=== PATIENT | female | born 1975 | race Caucasian/White ===

== ENCOUNTER 2016-12-22 16:25 | Emergency (ER) | payer BC, OTHER ==
[~2016-12-22] VITALS: Ht 160 cm; Wt 52.2 kg
[~2016-12-22 16:25] MED LIST: ALBU1AER9 INH; ERGO1CAP35 PO; GABA600T PO; IBUP1CAP9 PO; INSDGIPEN SC; NRN400 PO; NVLGI SC; PROM12.57 PO; TRAM-10 PO; ZOLP5TAB PO
[2016-12-22 16:26] VITALS: TEMP 36.9; Ht 160 cm; Wt 52.2 kg
[2016-12-22] MEDS ORDERED: ONDANSETRON INJ 2 MG/ML 2 ML VIAL IV STA (17:48)
[2016-12-22] MEDS ORDERED: HYDROmorphone INJ 1 MG/ML SYR IV STA (17:48)
--- NOTE | 2016-12-22 17:55 | DIAGNOSTIC IMAGING REPORT ---
CHEST ONE VIEW PORTABLE CLINICAL HISTORY: Atypical chest pain COMPARISON STUDY: 02/05/2016 FINDINGS: The cardiac and mediastinal contours are normal. There is no evidence of focal pulmonary consolidation. There is no evidence of failure. No pleural effusions are visualized.[ IMPRESSION: No active disease in the chest. Electronically signed by: Donis Ulloa M.D. 12/22/2016 5:53 PM Dictated Date/Time: 12/22/2016 5:53 PM
[2016-12-22 18:13] LABS: BASO % 0.4 %; BASO ABS # 0.03 K/uL (0-0.2); COMPLETE YES; EOS % 4.6 %; HEMATOCRIT 42.5 % (37-47); IG% 0.1 %; LYMPH % 44.4 %; MEAN CELL VOLUME 95.7 fL (80-100); MEAN CORPUSCULAR HEMOGLOBIN 33.3 pg (25-34); MEAN CORPUSCULAR HGB CONC 34.8 g/dl (32-36); MEAN PLATELET VOLUME 11.2 fL (7.4-10.4); MONO % 6.1 %; NEUT % 44.4 %; PLATELET COUNT 239 K/uL (130-400); RED BLOOD COUNT 4.44 M/uL (4.2-5.4); WHITE BLOOD COUNT 7.88 K/uL (4.8-10.8)
[2016-12-22] MEDS ORDERED: CYM/30 PO (18:16)
[2016-12-22] MEDS ORDERED: LINA1CAP PO (18:16)
[2016-12-22] MEDS ORDERED: TRAM-10 PO (18:16)
[2016-12-22] MEDS ORDERED: CLON0.5T3 PO (18:16)
[2016-12-22] MEDS ORDERED: DIVA500T3 PO (18:16)
[2016-12-22] MEDS ORDERED: TRAZ50TA35 PO (18:17)
[2016-12-22 18:32] LABS: INR 1.1 (0.9-1.1); PARTIAL THROMBOPLASTIN RATIO 1.1; PROTHROMBIN TIME (PATIENT) 11.4 SECONDS (9.0-12.0)
[2016-12-22 18:35] LABS: MANUAL MICROSCOPIC REQUIRED? NO; REVIEW REQ? NO; URINE APPEARANCE CLEAR (CLEAR); URINE BILIRUBIN NEG (NEG); URINE COLOR YELLOW; URINE NITRITE NEG (NEG); URINE PH 7.5 (4.5-7.5); URINE SPECIFIC GRAVITY 1.039 (1.000-1.030); UROBILINOGEN NEG (NEG); ZZUR CULT IF INDIC CLEAN CATCH NO
[2016-12-22 18:38] LABS: ALT/SGPT 20 U/L (12-78); AMYLASE 27 U/L (25-115); BLOOD UREA NITROGEN 9 mg/dl (7-18); BUN/CREATININE RATIO 13.1 (10-20); CALCIUM 8.3 mg/dl (8.5-10.1); CARBON DIOXIDE 27 mmol/L (21-32); CHLORIDE 108 mmol/L (98-107); CREATININE 0.68 mg/dl (0.60-1.20); GLUCOSE 186 mg/dl (70-99); POTASSIUM 4.4 mmol/L (3.5-5.1); SODIUM 143 mmol/L (136-145)
[2016-12-22 18:43] LABS: ALB/GLOB RATIO 1.1 (0.9-2); ALKALINE PHOSPHATASE 53 U/L (45-117); AST/SGOT 14 U/L (15-37)
--- NOTE | 2016-12-22 19:08 | EMERGENCY ROOM VISIT NOTE ---
History First contact with patient: 17:12 Chief Complaint: CHEST PAIN Stated Complaint: SEVERE CHEST PAIN Nursing Triage Summary: L sided chest pain, on going for a week, today it became much worse, LUQ pain radiating to chest and L shoulder blade, c/o nausea History of Present Illness The patient is a 41 year old female who presents to the Emergency Room with complaints of left-sided chest pain on and off for the past one month which has worsened over the past 2 days. The patient reports that she has had pain intermittently for the past one month. It has become more constant and severe over the past 2 days. The patient reports that the pain radiates from her epigastric region and left upper abdomen into her chest and back. She states that today, the pain is worse with deep breath. She has had a decreased appetite and mild nausea at times, but no vomiting. The patient has seen her primary care provider previously for this pain and at that time thought it was due to her breast. She saw a breast surgeon, who diagnosed her with neuropathy. She has a history of type 1 diabetes. She denies any history of hypertension or heart disease. She has no family history of heart disease. She denies any history or family history of blood clots. She is a smoker but does not take control pills. She denies any recent long car rides. The patient denies any fevers, urinary symptoms, changes in bowel movements. Review of Systems A complete 10-point Review of Systems was discussed with the patient, with pertinent positives and negatives listed in the History of Present Illness. All remaining Review of Systems questions can be considered negative unless otherwise specified. Past Medical/Surgical History Medical Problems: (1) Abdominal pain (2) Abdominal pain (3) Acute pancreatitis (4) ASTHMA, UNSPECIFIED (5) DIAB PHOEBE WO COMPL, TYPE II OR UNSPEC TYPE, NOT UNCNTRLD (6) Diabetic neuropathy (7) DKA (diabetic ketoacidoses) (8) DKA (diabetic ketoacidosis) (9) Gastroparesis (10) Hyperglycemia (11) Hyperglycemia (12) Nausea and vomiting (13) Ovarian cyst (14) Pancreatic insufficiency (15) Pancreatitis (16) Severe dehydration (17) Vomiting Surgical Problems: (1) History of hysterectomy Family History Cancer Diabetes mellitus Social History Smoking Status: Current Every Day Smoker Alcohol Use: none Drug Use: none Marital Status: Housing Status: lives with family Occupation Status: unemployed Current/Historical Medications Scheduled Clonazepam (Klonopin), 0.5 MG PO HS Divalproex Sodium (Depakote Er), 500 MG PO HS Duloxetine HCl (Cymbalta), 30 MG PO DAILY Ergocalciferol (Vitamin D Cap), 50,000 INTER.UNIT PO WK Gabapentin (Neurontin), 600 MG PO TID Ibuprofen (Ibuprofen), 600 MG PO DAILY Insulin Aspart (Novolog), UNITS SC Q2H Insulin Glargine (Lantus Solostar), 20 UNITS SC HS Trazodone Hcl (Trazodone), 50 MG PO HS Scheduled PRN Albuterol Sulfate (Proair Hfa), 1-2 PUFF INH 4-6 HRS PRN for SOB/Wheezing Linaclotide (Linzess), 145 MCG PO DAILY PRN for Constipation Promethazine (Phenergan ), 12.5 MG PO Q4H PRN for Nausea Tramadol (Ultram), 1 TAB PO BID PRN for Pain Allergies Coded Allergies: AZO Dyes (Verified Allergy, Intermediate, HIVES, 12/22/16) Naproxen (Verified Allergy, Intermediate, HIVES, 12/22/16) Phenazopyridine (Verified Allergy, Intermediate, HIVES, 12/22/16) Varenicline (Verified Adverse Reaction, Intermediate, SEVERE DEPRESSION, ) Uncoded Allergies: NICOTINE PATCH (Adverse Reaction, Intermediate, SKIN IRRIATION/ITCHINESS- LOCALIZED DERMATITIS, 07/16/15) Physical Exam Vital Signs Date Time Temp Pulse Resp B/P Pulse Ox O2 Delivery O2 Flow Rate FiO2 12/22/16 19:22 80 18 107/72 94 12/22/16 18:34 85 18 95/64 98 Room Air 12/22/16 17:41 80 14 125/74 94 Room Air 12/22/16 17:37 83 12/22/16 16:26 36.9 95 18 125/80 98 Room Air Physical Exam VITALS: Vitals are noted on the nurse's note and reviewed by myself. Vital signs stable. GENERAL: This is a 41-year-old female, in no acute distress, nondiaphoretic, well-developed well-nourished. SKIN: Capillary reflex less than 2 seconds. HEENT: Normocephalic. PERRLA. EOMI. Nares patent. Mucous membranes moist. Neck is supple without nuchal rigidity. HEART: Regular rate and rhythm without murmurs gallops or rubs. LUNGS: Clear to auscultation bilaterally without wheezes, rales or rhonchi. ABDOMEN: Positive bowel sounds x 4. Soft, with mild tenderness over the epigastrium and left upper quadrant. Fleming sign negative. No guarding or rebound tenderness. MUSCULOSKELETAL: Full range of motion of bilateral upper extremities, strength 5 /5. NEURO: Patient was alert and oriented to person place and time. Medical Decision & Procedures ER Provider Diagnostic Interpretation: CHEST ONE VIEW PORTABLE CLINICAL HISTORY: Atypical chest pain FINDINGS: The cardiac and mediastinal contours are normal. There is no evidence of focal pulmonary consolidation. There is no evidence of failure. No pleural effusions are visualized. IMPRESSION: No active disease in the chest. Laboratory Results 12/22/16 18:00 Red Blood Count 4.44, Mean Corpuscular Volume 95.7, Mean Corpuscular Hemoglobin 33.3, Mean Corpuscular Hemoglobin Concent 34.8, Mean Platelet Volume 11.2, Neutrophils (%) (Auto) 44.4, Lymphocytes (%) (Auto) 44.4, Monocytes (%) (Auto) 6.1, Eosinophils (%) (Auto) 4.6, Basophils (%) (Auto) 0.4, Neutrophils # (Auto) 3.50, Lymphocytes # (Auto) 3.50, Monocytes # (Auto) 0.48, Eosinophils # (Auto) 0.36, Basophils # (Auto) 0.03 12/22/16 18:00 Test 12/22/16 16:40 12/22/16 18:00 Urine Color YELLOW Urine Appearance CLEAR (CLEAR) Urine pH 7.5 (4.5-7.5) Urine Specific [place] 1.039 (1.000-1.030) Urine Protein NEG (NEG) Urine Glucose (UA) 3+ (NEG) Urine Ketones TRACE (NEG) Urine Occult Blood NEG (NEG) Urine Nitrite NEG (NEG) Urine Bilirubin NEG (NEG) Urine Urobilinogen NEG (NEG) Urine Leukocyte Esterase NEG (NEG) White Blood Count 7.88 K/uL (4.8-10.8) Red Blood Count 4.44 M/uL (4.2-5.4) Hemoglobin 14.8 g/dL (12.0-16.0) Hematocrit 42.5 % (37-47) Mean Corpuscular Volume 95.7 fL (80-100) Mean Corpuscular Hemoglobin 33.3 pg (25-34) Mean Corpuscular Hemoglobin Concent 34.8 g/dl (32-36) Platelet Count 239 K/uL (130-400) Mean Platelet Volume 11.2 fL (7.4-10.4) Neutrophils (%) (Auto) 44.4 % Lymphocytes (%) (Auto) 44.4 % Monocytes (%) (Auto) 6.1 % Eosinophils (%) (Auto) 4.6 % Basophils (%) (Auto) 0.4 % Neutrophils # (Auto) 3.50 K/uL (1.4-6.5) Lymphocytes # (Auto) 3.50 K/uL (1.2-3.4) Monocytes # (Auto) 0.48 K/uL (0.11-0.59) Eosinophils # (Auto) 0.36 K/uL (0-0.5) Basophils # (Auto) 0.03 K/uL (0-0.2) RDW Standard Deviation 44.2 fL (36.4-46.3) RDW Coefficient of Variation 12.6 % (11.5-14.5) Immature Granulocyte % (Auto) 0.1 % Immature Granulocyte # (Auto) 0.01 K/uL (0.00-0.02) Prothrombin Time 11.4 SECONDS (9.0-12.0) Prothromb Time International Ratio 1.1 (0.9-1.1) Activated Partial Thromboplast Time 28.4 SECONDS (21.0-31.0) Partial Thromboplastin Ratio 1.1 D-Dimer < 190 ug/L FEU (0-500) Anion Gap 8.0 mmol/L (3-11) Est Creatinine Clear Calc Drug Dose 89.7 ml/min Estimated GFR () 125.9 Estimated GFR (Non- 108.6 BUN/Creatinine Ratio 13.1 (10-20) Calcium Level 8.3 mg/dl (8.5-10.1) Total Bilirubin 0.3 mg/dl (0.2-1) Aspartate Amino Transf (AST/SGOT) 14 U/L (15-37) Alanine Aminotransferase (ALT/SGPT) 20 U/L (12-78) Alkaline Phosphatase 53 U/L (45-117) Total Creatine Kinase 33 U/L (26-192) Creatine Kinase MB < 0.5 ng/ml (0.5-3.6) Creatine Kinase MB Ratio (0-3.0) Troponin I < 0.015 ng/ml (0-0.045) Total Protein 6.3 gm/dl (6.4-8.2) Albumin 3.3 gm/dl (3.4-5.0) Globulin 3.0 gm/dl (2.5-4.0) Albumin/Globulin Ratio 1.1 (0.9-2) Amylase Level 27 U/L (25-115) Lipase 79 U/L (73-393) Medications Administered Medications (Trade) Dose Ordered Sig/Laury Route Start Time Stop Time Status Last Admin Dose Admin Hydromorphone HCl (Dilaudid Inj) 1 mg NOW STAT IV 12/22/16 17:48 12/22/16 17:49 DC 12/22/16 18:06 1 MG Ondansetron HCl (Zofran Inj) 4 mg NOW STAT IV 12/22/16 17:48 12/22/16 17:49 DC 12/22/16 18:05 4 MG ECG Indication: abdominal pain, chest pain Rate (beats per minute): 83 Rhythm: normal sinus Findings: no acute ischemic change, no ectopy Change: no significant change Medical Decision Differential diagnosis includes pancreatitis, peptic ulcer disease, gastritis, cholecystitis, acute coronary syndrome, pulmonary embolism, musculoskeletal pain , among others. The patient was evaluated as above. Labs were drawn and IV access was obtained. Imaging studies were performed and read by radiology as above. The patient was medicated with 1 mg Dilaudid IV and 4 mg Zofran IV. The patient was reassessed multiple times during their stay in the emergency department and remained in stable condition. The patient is a 41-year-old female who presents today complaining of epigastric abdominal pain and left-sided chest pain. Labs revealed no leukocytosis, anemia or concerning electrolyte abnormalities. Lipase was not elevated. Urinalysis was cardiac enzymes were not elevated. D-dimer was not elevated. Not suggestive of infection. EKG was interpreted by myself and showed a normal sinus rhythm. Chest x-ray was unremarkable. The patient did feel much better after IV pain medication and antiemetics. I feel that her symptoms are most likely secondary to gastritis or peptic ulcer disease. She has seen GI in the past and I recommended that she take Prilosec. She will follow-up with gastroenterology and with her primary care provider. Based on the patient's presentation, lab results, and imaging studies, I feel the patient is stable for outpatient treatment. The patient's case was reviewed with Dr. Lewis, ED attending physician, who agreed with my assessment and treatment plan. Discharge instructions were reviewed with the patient. The patient verbalized understanding of my assessment and treatment plan and was discharged home in good condition. Impression Primary Impression: Epigastric abdominal pain Additional Impression: Non-cardiac chest pain Departure Information Dispostion Home / Self-Care Condition GOOD Referrals RV. Horner MD (PCP) Patient Instructions [facility] Additional Instructions You have been treated in the Emergency Department for your Chest Pain. Laboratory results and Imaging Studies have ruled out any cardiac or pulmonary cause of your chest pain. You should start taking Prilosec daily at home. For pain control, you can use the following [id number] medicines (if >12 yo): - Regular strength (325mg/tab) Tylenol (acetaminophen) 2 tabs every 4-6 hours as needed. Do not exceed 12 tablets in a 24 hour period. Avoid taking more than 4 grams (4000 mg) of Tylenol per day. This includes any other sources of acetaminophen you may take on a regular basis. - Regular strength (200 mg/tab) Advil (ibuprofen) 1-2 tabs every 4-6 hours as needed. Do not exceed a dose of 3200 mg per day. Call your primary care provider tomorrow to schedule follow-up. You may need further cardiac testing as an outpatient. Call your gas or water meter installer tomorrow to schedule follow-up appointment this week. Return to the emergency department with worsening chest pain, shortness of breath, vomiting, pain radiating into the jaw or arm, or any other new/ concerning symptoms. Problem Qualifiers
[2016-12-22 19:22] VITALS: BP 107/72; PULSE 80; O2SAT 94
== END 2016-12-22 19:22 | disposition home or self-care (01) ==
LOC: C.EDB 16:26 → C.EDC 19:22
DX: R10.13 Epigastric pain (principal); R07.89 Other chest pain; E10.40 Type 1 diabetes mellitus with diabetic neuropathy, unspecified; J45.909 Unspecified asthma, uncomplicated; Z83.3 Family history of diabetes mellitus; F17.200 Nicotine dependence, unspecified, uncomplicated

== ENCOUNTER → 2017-04-23 | Outpatient (CLI) | payer OTHER ==
[~2017-04-23] MED LIST changes: +CLON0.5T3 PO; +CYM/30 PO; +DIVA500T3 PO; +GADAVIST IV PRN; +LINA1CAP PO; -NRN400 PO; +TRAZ50TA35 PO; -ZOLP5TAB PO
--- NOTE | 2017-04-23 10:22 | DIAGNOSTIC IMAGING REPORT ---
MRI OF THE BRAIN COMBO CLINICAL HISTORY: Headache. COMPARISON STUDY: MRI of the brain dated 06/29/2016. TECHNIQUE: MRI of the brain was performed utilizing various T1 and T2-weighted sequences in the axial, sagittal, and coronal planes. Contrast-enhanced sequences were acquired following the administration of 5 cc of Gadavist. FINDINGS: Brain parenchyma: The brain parenchyma is normal in appearance. There is no hemorrhage or mass effect. There is no restricted diffusion to suggest acute ischemia. No enhancing mass lesion is identified on the postcontrast images. Dickerson-white matter differentiation is preserved. No extra-axial fluid collection is seen. The cerebellar tonsils are normal in configuration. Ventricles, sulci, and cisterns: Normal in configuration. Pituitary and sella: Unremarkable. Intracranial vasculature: Normal flow voids are maintained at the skull base. Orbits: The bony orbits are grossly intact. Orbital contents are normal in appearance. Sinuses and mastoids: There is subtotal opacification of the sphenoid sinuses. Mucosal thickening is also present within the maxillary and ethmoid sinuses. The mastoid air cells are clear. Calvarium: Unremarkable. Cervical cord: Partially visualized cervical spinal cord is normal in morphology and signal intensity. IMPRESSION: 1. No acute intracranial abnormality. 2. Paranasal sinus disease as above. Electronically signed by: Jared Jane M.D. 04/23/2017 10:21 AM Dictated Date/Time: 04/23/2017 10:16 AM
== END | disposition home or self-care (01) ==
LOC: C.MRI 08:36
PROVIDERS: ATTEND Physician Assistant
DX: R51 Headache (principal); J32.9 Chronic sinusitis, unspecified

== ENCOUNTER → 2017-07-20 | Outpatient (CLI) | payer OTHER ==
[~2017-07-20] MED LIST changes: -GADAVIST IV PRN
--- NOTE | 2017-07-20 11:29 | DIAGNOSTIC IMAGING REPORT ---
ABDOMEN 2VIEW W/PA CHEST RTN CLINICAL HISTORY: 41 years-old Female presenting with K59.03 Therapeutic opioid-induced constipation. TECHNIQUE: PA view of the chest and supine and upright views of the abdomen were obtained. COMPARISON: 12/22/2016. FINDINGS: Cardiomediastinal silhouette normal. Lungs and pleural spaces clear. Moderate stool burden. No evidence of bowel obstruction.. No evidence of free intraperitoneal gas, pneumatosis, or portal venous gas. Osseous structures normal. IMPRESSION: 1. Findings consistent with constipation. 2. No acute cardiopulmonary disease. Electronically signed by: Isauro Reed M.D. 07/20/2017 11:28 AM Dictated Date/Time: 07/20/2017 11:27 AM
== END | disposition home or self-care (01) ==
LOC: C.RAD1850 11:07
PROVIDERS: ATTEND Physician Assistant
DX: K59.03 Drug induced constipation (principal)

== ENCOUNTER → 2017-07-31 | Outpatient (CLI) | payer OTHER ==
--- NOTE | 2017-07-31 12:35 | MAMMOGRAPHY REPORT ---
BILATERAL DIGITAL DIAGNOSTIC MAMMOGRAM TOMOSYNTHESIS WITH CAD AND TARGETED LEFT ULTRASOUND: 07/31/2017 CLINICAL HISTORY: The patient reports worsening left breast pain for approximately 2 years, which is predominately burning and intermittent. She reports persistent nonbloody greenish yellow left nipple discharge for years. She denies any new palpable lumps. History of benign left breast biopsy. TECHNIQUE: Breast tomosynthesis in addition to standard 2D mammography was performed. Current study was also evaluated with a Computer Aided Detection (CAD) system. Bilateral CC and MLO 2-D and tomosy nthesis images were obtained. COMPARISON: Comparison is made to exams dated: 08/04/2016 ultrasound, 08/04/2016 mammogram, 01/28/2016 u ltrasound, 01/28/2016 mammogram, 07/27/2015 mammogram, and 07/27/2015 ultrasound biopsy - [facility]. BREAST COMPOSITION: The tissue of both breasts is heterogeneously dense, which may obscure small mas ses. FINDINGS: A scar marker rodriguez the site of pain in the left upper outer quadrant. There is no suspic ious masses, calcifications, or areas of architectural distortion noted mammographically. There has been no significant interval change compared to prior exams. A biopsy marker clip is again noted wit hin the left upper outer quadrant. An oval circumscribed 11 mm mass in the left upper outer quadrant is stable compared to prior exams. Targeted ultrasound was performed of the area of pain pointed out by the patient, involving the left 2:00 breast, centered around 6-8 centimeters from the nipple. No suspicious abnormalities are seen i n this region. In the left breast at 2:00, 3 cm from the nipple, again noted is an oval circumscribe d hypoechoic 12 x 5 x 8 mm mass, with a biopsy marker clip seen within it. This corresponds to the p reviously biopsied benign fibroadenoma and is stable dating back to the 2014 exam. The patient noted some pain when scanning over this region. In the left breast at 2:00, 2 cm from the nipple, again n oted is an oval circumscribed hypoechoic mass which measures 10 x 4 x 7 mm. This is also stable dati ng back to the June 2015 exam and is considered benign given long-term stability and likely also re presents a fibroadenoma. In the left breast at 2:30, 3 cm from the nipple, there is an oval hypoecho ic 4 x 5 x 3 mm mass. The margins are not completely circumscribed and this was not clearly evident on prior exams. While this may also represent a fibroadenoma, it is indeterminate and ultrasound-caryn ded core needle biopsy is recommended for further evaluation. Ultrasound was also performed in the l eft axillary region at the site of radiating pain, which shows morphologically normal left axillary l ymph nodes without evidence of adenopathy. IMPRESSION: ACR BI-RADS CATEGORY 4: SUSPICIOUS, TARGETED ULTRASOUND ACR BI-RADS CATEGORY 4: SUSPICIO US 1. Stable 12 mm mass in the left 2:00 breast, 3 cm from the nipple, consistent with previously biops ied benign fibroadenoma. Stable 10 mm mass in left breast at 2:00, 2 cm from the nipple, which is co nsidered benign given long-term stability and likely represents a fibroadenoma. 2. Newly visualized hypoechoic 5 mm mass in the left breast at 2:30. While this may also represent a fibroadenoma, given that it is newly visualized it is indeterminate and ultrasound-guided core need le biopsy is recommended for further evaluation. 3. The remainder of both breasts demonstrate no mammographic evidence of malignancy. 4. Recommend continued clinical follow-up for left breast pain and nipple discharge. A phone call was made to the physician's office to confirm faxed results were received. The patient has been verbally notified of the results. She tentatively scheduled the biopsy before leaving the [facility]. Approximately 10% of breast cancers are not detected with mammography. A negative mammographic report should not delay biopsy if a clinically suggestive mass is present. Maylin Montelongo M.D. /:07/31/2017 12:06:43 [employer]: Génesis Jose, [facility] letter sent: Abnormal 4/5 BI-RADS Code: ACR BI-RADS Category 4: Suspicious Ultrasound BI-RADS: ACR BI-RADS Category 4: Suspici ous
== END | disposition home or self-care (01) ==
LOC: C.MAMM 09:47
PROVIDERS: ATTEND Internal Medicine
DX: N64.4 Mastodynia (principal); N63 Unspecified lump in breast

== ENCOUNTER → 2017-08-07 | Outpatient (CLI) | payer OTHER ==
--- NOTE | 2017-08-07 11:31 | Discharge Instructions ---
Discharge Instructions Procedure Procedure Date: Aug 07, 2017. Reason for visit: Left Mass. Discharge Discharge Date: Aug 07, 2017. Discharge Diagnosis: status post breast biopsy Instructions Activity Recommendations: Additional Limitations (see below) Return to School/Work: no limitations Recommended Home Diet: No Limitations Provider Instructions: ACTIVITY RECOMMENDATIONS: * No lifting, pushing, pulling or exercising the affected side for three days. RETURN TO SCHOOL/WORK: * You may return to work/school after the procedure, but do not perform any strenuous activities for 24 to 48 hours. MEDICATIONS: * Tylenol (two 325 mg) every four to six hours if needed for mild pain (if not allergic to Tylenol). DIET: * Resume previous diet. SPECIAL CARE INSTRUCTIONS: * Keep biopsy site dry for 24 hours. May shower after 24 hours, but do not soak (bathe) incision. * May remove Tegaderm (plastic patch) tomorrow AFTER showering. * Leave the steri-strips on for one week. Allow the steri-strips to fall off by themselves. If not off after one week, you may remove them. You may place a Bandaid crosswise over the strips, if desired. * Apply ice 10 minutes on and 10 minutes off as needed. * Wear a bra at bedtime to sleep more comfortably for 2-3 days. * Your referring physician should have the results after approximately 5 to 7 business days. * Call for unusual bleeding, fever, drainage, etc or if you have any questions call during normal business hours or after hours call Dr Montelongo, [phone]. FOLLOW UP VISIT: Follow-up with Referring Physician as scheduled. Allergies Coded Allergies: AZO Dyes (Verified Allergy, Intermediate, HIVES, 12/22/16) Naproxen (Verified Allergy, Intermediate, HIVES, 12/22/16) Phenazopyridine (Verified Allergy, Intermediate, HIVES, 12/22/16) Nicotine (Verified Adverse Reaction, Intermediate, PATCH = SKIN IRRIATION/ ITCHINESS-LOCALIZED DERMATITIS, 04/23/17) Varenicline (Verified Adverse Reaction, Intermediate, SEVERE DEPRESSION, ) Elle Christian Recommendations: Call your doctor if: * Temperature above 101 degrees * Pain not relieved by pain medicine ordered * There is increased drainage or redness from any incision * You have any unanswered questions or concerns. Your Doctors Instructions noted above were prepared by provider Maylin Montelongo. Patient Signature Section: Patient Instructions Signature Page Lacey Sandoval Patient (or Guardian) Signature/Date: I have read and understand the instructions given to me by my caregivers. Caregiver/RN/Doctor Signature/Date: The above-named patient and/or guardian has received patient instructions on this date. + Original Patient Signature Page (only) stays with chart. Please make copy for patient.
--- NOTE | 2017-08-07 13:41 | MAMMOGRAPHY REPORT ---
UNILATERAL LEFT DIGITAL DIAGNOSTIC MAMMOGRAM TOMOSYNTHESIS: 08/07/2017 CLINICAL HISTORY: Status post ultrasound-guided left breast biopsy. TECHNIQUE: Breast tomosynthesis in addition to standard 2D mammography was performed. Postprocedura l left CC and ML tomosynthesis images including C views were obtained. COMPARISON: Comparison is made to exams dated: 07/31/2017 ultrasound, 07/31/2017 mammogram, 08/04/2016 ul trasound, 08/04/2016 mammogram, 01/28/2016 mammogram, and 07/27/2015 mammogram - [facility]. BREAST COMPOSITION: The tissue of the left breast is heterogeneously dense, which may obscure small masses. FINDINGS: A new wing-shaped biopsy marker clip is seen in the left upper outer quadrant at the site of the biopsied left 2:30 breast mass. No significant postbiopsy hematoma is seen. A ribbon-shaped biopsy marker clip denotes the area of prior benign biopsy. IMPRESSION: POST PROCEDURE IMAGING FOR MARKER PLACEMENT New biopsy marker clip status post left breast ultrasound-guided biopsy. Pathology results are pendi ng. Approximately 10% of breast cancers are not detected with mammography. A negative mammographic report should not delay biopsy if a clinically suggestive mass is present. Maylin Montelongo M.D. /:08/07/2017 11:37:38 Dining Room Coordinator: Chanda ANGUIANO)(Nicanor), [facility] BI-RADS Code: Post Procedure Imaging For Marker Placement
--- NOTE | 2017-08-07 13:41 | MAMMOGRAPHY REPORT ---
THIS REPORT HAS BEEN AMENDED. ULTRASOUND GUIDED BIOPSY LEFT BREAST: 08/07/2017 CLINICAL HISTORY: Left 2:30 breast mass. PATIENT CONSENT: The procedure, risks and benefits were discussed with the patient and informed writt en consent was obtained. A timeout was performed immediately prior to the procedure. PROCEDURE DESCRIPTION: With ultrasound guidance, aseptic technique, and lidocaine as the local anesth etic (1% lidocaine to anesthetize the skin and 1% lidocaine with epinephrine to anesthetize the deepe r tissues), the mass of concern in the left 2:30 breast was sampled 3 times with a 14-gauge Achieve b iopsy needle. Immediately thereafter, with ultrasound guidance, aseptic technique, and lidocaine as t he local anesthetic, a metallic localizer clip was placed at the biopsy site. Direct pressure was ap plied to the site immediately post procedure and hemostasis was achieved. Postprocedure unilateral m ammograms were performed to confirm clip placement. The patient tolerated the procedure without comp lication. She was given wound care instructions. The specimens were sent to pathology for analysis. COMPARISON: Comparison is made to exams dated: 07/31/2017 ultrasound, 07/31/2017 mammogram, 08/04/2016 ul trasound, 08/04/2016 mammogram, 01/28/2016 ultrasound, and 01/28/2016 mammogram - [facility] nter. IMPRESSION: ULTRASOUND GUIDED BIOPSY Ultrasound guided core needle biopsy of the left 2:30 breast mass, with clip placement. The patient will receive pathology results from her referring provider. Maylin Montelongo M.D. ah/:08/07/2017 11:32:22 Gis Application Developer: Chanda BROWN(Mikki)(Nicanor), [facility] AMENDMENT: 08/12/2017 Maylin Montelongo M.D. Pathology from ultrasound guided biopsy of a left 2:30 breast mass was reviewed on 08/12/2017. 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 The differential provided by the pathol ogist included a cellular fibroadenoma and a low-grade benign Phyllodes tumor, with a hypercellular f ibroadenoma favored. Given the presence of another biopsy-proven fibroadenoma in the left breast and given the small size and nonpalpable nature of the mass and given that a fibroadenoma is favored by the pathologist, it seems reasonable to follow the mass with repeat ultrasound in 6 months to confirm stability. Alternatively, surgical consultation could be considered.
== END | disposition home or self-care (01) ==
LOC: C.MAMM 10:53
PROVIDERS: ATTEND Internal Medicine
DX: N63 Unspecified lump in breast (principal); D24.2 Benign neoplasm of left breast

== ENCOUNTER → 2017-11-11 | Day surgery (SDC) | payer OTHER ==
[2017-11-06 08:17] VITALS: BMI 18.0
[~2017-11-11] VITALS: Ht 162.6 cm; Wt 48.6 kg
[~2017-11-11] MED LIST changes: +ALBU18002 INH; -ALBU1AER9 INH; -CLON0.5T3 PO; -CYM/30 PO; +DIPH25CA5 PO; -DIVA500T3 PO; -ERGO1CAP35 PO; +HYDR-3126 PO; +HYDR8TAB29 PO; -IBUP1CAP9 PO; +LIDOCAINE HCL 2% 2 ML VIAL (20MG/ML) ONE; -LINA1CAP PO; +MIDAZOLAM HCL 1 MG/ML 2ML VIAL ONE; -NVLGI SC; +NVLGIPEN SC; +ONDA4TAB46 PO; +ONDANSETRON INJ 2 MG/ML 2 ML VIAL ONE; +PANT40TA PO; +PLEC3TAB PO; +PROPOFOL IV EMULSION 10 MG/ML 20 ML VIAL IV ONE; +RIZA10TA18 PO; +SODIUM CHLORIDE 0.9% 500ML 500 ML IV ONE; +TOPI25TA99 PO; -TRAM-10 PO; +ZNF/4 PO
[2017-11-11 13:07] VITALS: Ht 162.6 cm; Wt 48.6 kg
[2017-11-11 13:14] VITALS: TEMP 36.5
--- NOTE | 2017-11-11 13:32 | Endo History and Physical ---
History & Physical Date of Service: Nov 11, 2017. Chief Complaint: COFFEE GROUND EMESIS Referring Physician: DR TERRY History of Present Illness 41 yo CF who presents for EGD secondary to coffee ground emesis. Past Medical History Diabetes, Asthma, Anxiety, Cancer, High Cholesterol, Depression Past Surgical History Hx Cardiac Surgery: No Hx Internal Defibrillator: No Hx Pacemaker: No Hx Abdominal Surgery: Yes (PARTIAL HYSTER, REANASTAMOSIS) Hx of Implantable Prosthesis: No Hx Post-Op Nausea and Vomiting: No Hx Cancer Surgery: No Hx Thoracic Surgery: No Hx Orthopedic: No Hx Urinary Tract Surgery: No Family History None Social History Smoking Status: Current Every Day Smoker Hx Substance Use: No Hx Alcohol Use: Yes (QUIT +3 YEARS) Allergies Coded Allergies: AZO Dyes (Verified Allergy, Intermediate, HIVES, 11/06/17) Naproxen (Verified Allergy, Intermediate, HIVES, 11/06/17) Phenazopyridine (Verified Allergy, Intermediate, HIVES, 11/06/17) Nicotine (Verified Adverse Reaction, Intermediate, PATCH = SKIN IRRIATION/ ITCHINESS-LOCALIZED DERMATITIS, 11/06/17) Varenicline (Verified Adverse Reaction, Intermediate, SEVERE DEPRESSION, 11/06/17) Current Medications Reported Home Medications Medications Dose Route/Sig Max Daily Dose Days Date Category Dose Instructions Protonix (Pantoprazole Sodium) 40 Mg Tab 40 Mg PO QAM 11/06/17 Reported Lantus Solostar (Insulin Glargine) 100 Unit/Ml Inj 20-40 Units SC QPM 11/06/17 Reported Novolog Flexpen (Insulin Aspart) 100 Units/Ml Inj 1 Dose SC UD 11/06/17 Reported PER SLIDING SCALE Trulance (Plecanatide) 3 Mg Tab 1 Tab PO DAILY PRN 11/06/17 Reported Benadryl (Diphenhydramine Hcl) 25 Mg Cap 50 Mg PO HS PRN 11/06/17 Reported Maxalt (Rizatriptan Benzoate) 10 Mg Tab 10 Mg PO UD PRN 11/06/17 Reported Zofran (Ondansetron HCl) 4 Mg Tab 4 Mg PO Q6H PRN 11/06/17 Reported Dilaudid (Hydromorphone Hcl) 8 Mg Tab 1 Tab PO TID 11/06/17 Reported Topamax (Topiramate) 25 Mg Tab 25 Mg PO BID 11/06/17 Reported Atarax (Hydroxyzine Hcl) 50 Mg Tab 50 Mg PO TID PRN 11/06/17 Reported Tizanidine HCl (Tizanidine) 4 Mg Tab 1 Tab PO TID 11/06/17 Reported Proair Respiclick (Albuterol Sulfate) 108 Mcg/Act Aer 2 Puffs INH Q4H PRN 11/06/17 Reported Trazodone (Trazodone HCl) 50 Mg Tab 50 Mg PO HS PRN 12/22/16 Reported Phenergan (Promethazine HCl) 12.5 Mg Tab 12.5 Mg PO Q4-6H PRN 12/07/15 Reported Neurontin (Gabapentin) 600 Mg Tab 600 Mg PO TID 07/16/15 Reported Vital Signs Weight (Kilograms): 48.64 Height (Feet): 5 Height (Inches): 4 Date Time Temp Pulse Resp B/P (MAP) Pulse Ox O2 Delivery O2 Flow Rate FiO2 11/11/17 13:14 36.5 86 18 127/84 (98) 95 Room Air Physical Exam General Appearance: WD/WN, no apparent distress Respiratory/Chest: Auscultation: breath sounds normal Cardiovascular: Heart Auscultation: RRR Abdomen: Bowel Sounds: normal Inspection & Palpation: soft, non-distended, no tenderness, guarding & rebound Assessment and Plan Assessment: 41 yo CF who presents for EGD secondary to coffee ground emesis. Plan: Proceed with EGD.
--- NOTE | 2017-11-11 14:06 | Discharge Instructions ---
Endoscopy Patient Instructions Date / Procedure(s) Performed Nov 11, 2017. EGD Allergy Information Coded Allergies: AZO Dyes (Verified Allergy, Intermediate, HIVES, 11/11/17) Naproxen (Verified Allergy, Intermediate, HIVES, 11/11/17) Phenazopyridine (Verified Allergy, Intermediate, HIVES, 11/11/17) Nicotine (Verified Adverse Reaction, Intermediate, PATCH = SKIN IRRIATION/ ITCHINESS-LOCALIZED DERMATITIS, 11/11/17) Varenicline (Verified Adverse Reaction, Intermediate, SEVERE DEPRESSION, 11/11/17) Discharge Date / Findings Nov 11, 2017. Gastritis s/p biopsies Esophageal brushings Medication Instructions OK to resume all medications today as prescribed Reported Home Medications Medications Dose Route/Sig Max Daily Dose Days Date Category Dose Instructions Protonix (Pantoprazole Sodium) 40 Mg Tab 40 Mg PO QAM 11/06/17 Reported Lantus Solostar (Insulin Glargine) 100 Unit/Ml Inj 20-40 Units SC QPM 11/06/17 Reported Novolog Flexpen (Insulin Aspart) 100 Units/Ml Inj 1 Dose SC UD 11/06/17 Reported PER SLIDING SCALE Trulance (Plecanatide) 3 Mg Tab 1 Tab PO DAILY PRN 11/06/17 Reported Benadryl (Diphenhydramine Hcl) 25 Mg Cap 50 Mg PO HS PRN 11/06/17 Reported Maxalt (Rizatriptan Benzoate) 10 Mg Tab 10 Mg PO UD PRN 11/06/17 Reported Zofran (Ondansetron HCl) 4 Mg Tab 4 Mg PO Q6H PRN 11/06/17 Reported Dilaudid (Hydromorphone Hcl) 8 Mg Tab 1 Tab PO TID 11/06/17 Reported Topamax (Topiramate) 25 Mg Tab 25 Mg PO BID 11/06/17 Reported Atarax (Hydroxyzine Hcl) 50 Mg Tab 50 Mg PO TID PRN 11/06/17 Reported Tizanidine HCl (Tizanidine) 4 Mg Tab 1 Tab PO TID 11/06/17 Reported Proair Respiclick (Albuterol Sulfate) 108 Mcg/Act Aer 2 Puffs INH Q4H PRN 11/06/17 Reported Trazodone (Trazodone HCl) 50 Mg Tab 50 Mg PO HS PRN 1/30/17 Reported Phenergan (Promethazine HCl) 12.5 Mg Tab 12.5 Mg PO Q4-6H PRN 12/07/15 Reported Neurontin (Gabapentin) 600 Mg Tab 600 Mg PO TID 07/16/15 Reported Provider Instructions Activity Restrictions - No exercising or heavy lifting for 24 hours. - Do not drink alcohol the day of the procedure. - Do not drive a car or operate machinery until the day after the procedure. - Do not make any important decisions or sign important papers in 24 hours after the procedure. Following Day: - Return to full activity which may include returning to work/school. Diet Start your diet with liquids and light foods (jello, soup, juice, toast). Then eat your usual diet if not nauseated. Treatment For Common After Affects For mild abdominal pain, bloating, or excessive gas: - Rest - Eat lightly - Lie on right side Follow-Up Information Follow-up with DR TERRY as scheduled Anesthesia Information What You Should Know You have had a procedure that required some medicine to reduce anxiety and discomfort. This treatment is called moderate sedation. After receiving the treatment, you may be sleepy, but you will be able to breathe on your own. The effects of the treatment may last for several hours. Follow these instructions along with Activity/Diet recommendations noted above: * Do NOT do anything where dizziness or clumsiness would be dangerous. * Rest quietly at home today, then you can be up and about tomorrow. * Have a responsible person stay with you the rest of today. * You may have had an I.V. today. If so, you may take the dressing off later today. Recommendations Call your doctor if: * Trouble breathing * Continuous vomiting for more than 24 hours * Temperature above 101 degrees * Severe abdominal pain or bloating * Pain not relieved by pain medicine ordered * There is increased drainage or redness from any incision * A large amount of rectal bleeding greater than 2-3 tablespoons. (If you had a polyp/s removed or have hemorrhoids, a small amount of blood - from the rectum is to be expected.) * You have any unanswered questions or concerns. IN THE EVENT OF A SERIOUS EMERGENCY, GO TO THE NEAREST EMERGENCY ROOM Your discharge instructions were prepared by provider Hi Meredith. Patient Instructions Signature Page Lacey Sandoval Patient (or Guardian) Signature/Date: I have read and understand the instructions given to me by my caregivers. Caregiver/RN/Doctor Signature/Date: The above-named patient and/or guardian has received patient instructions on this date. + Original Patient Signature Page (only) stays with chart. Please make copy for patient.
--- NOTE | 2017-11-11 14:10 | GI REPORT ---
Procedure Date: 11/11/2017 1:42 PM Procedure: Upper GI endoscopy Indications: Coffee-ground emesis Medicines: Monitored Anesthesia Care Complications: No immediate complications. Estimated Blood Loss: Estimated blood loss: none. Procedure: Pre-Anesthesia Assessment: - Prior to the procedure, a History and Physical was performed, and patient medications and allergies were reviewed. The patient's tolerance of previous anesthesia was also reviewed. The risks and benefits of the procedure and the sedation options and risks were discussed with the patient. All questions were answered, and informed consent was obtained. Prior Anticoagulants: The patient has taken no previous anticoagulant or antiplatelet agents. ASA Grade Assessment: III - A patient with severe systemic disease. After reviewing the risks and benefits, the patient was deemed in satisfactory condition to undergo the procedure. After obtaining informed consent, the endoscope was passed under direct vision. Throughout the procedure, the patient's blood pressure, pulse, and oxygen saturations were monitored continuously. The scope was introduced through the mouth, and advanced to the second part of duodenum. The upper GI endoscopy was accomplished without difficulty. The patient tolerated the procedure well. Findings: Probable candidiasis was found in the entire esophagus in patches. Cells for cytology were obtained by brushing. Localized moderate inflammation characterized by erosions and erythema was found in the gastric antrum. Biopsies were taken with a cold forceps for histology. The examined duodenum was normal. Impression: - Monilial esophagitis. Cells for cytology obtained. - Gastritis. Biopsied. - Normal examined duodenum. Recommendation: - Resume previous diet. - Continue present medications. - Await pathology results. - Return to primary care physician as previously scheduled. Hi Meredith, DO 11/11/2017 2:09:39 PM This report has been signed electronically. Note Initiated On: 11/11/2017 1:42 PM I attest to the content of the Intraoperative Record and orders documented therein, exceptions below
[2017-11-11 14:34] VITALS: BP 112/74; PULSE 86; O2SAT 96
--- NOTE | 2017-11-11 14:51 | Anesthesiology Progress Note ---
Anesthesia Post Op Note Date & Time Nov 11, 2017 at 14:51 Vital Signs Pain Intensity: 0 Vital Signs Past 12 Hours Date Time Temp Pulse Resp B/P (MAP) Pulse Ox O2 Delivery O2 Flow Rate FiO2 11/11/17 14:34 86 18 112/74 (87) 96 Room Air 11/11/17 14:17 75 18 103/69 (80) 94 Room Air 11/11/17 14:04 87 16 111/76 (88) 97 Room Air 11/11/17 13:14 36.5 86 18 127/84 (98) 95 Room Air Notes Mental Status: alert / awake / arousable, participated in evaluation Pt Amnestic to Procedure: Yes Nausea / Vomiting: adequately controlled Pain: adequately controlled Airway Patency, RR, SpO2: stable & adequate BP & HR: stable & adequate Hydration State: stable & adequate Anesthetic Complications: no major complications apparent
== END | disposition home or self-care (01) ==
LOC: C.GI 12:52
PROVIDERS: ATTEND Internal Medicine
DX: K92.0 Hematemesis (principal); K20.9 Esophagitis, unspecified; K29.70 Gastritis, unspecified, without bleeding; E78.00 Pure hypercholesterolemia, unspecified; E10.9 Type 1 diabetes mellitus without complications; J45.909 Unspecified asthma, uncomplicated; F41.9 Anxiety disorder, unspecified; F32.9 Major depressive disorder, single episode, unspecified; F17.210 Nicotine dependence, cigarettes, uncomplicated; Z79.4 Long term (current) use of insulin; Z79.899 Other long term (current) drug therapy; K21.9 Gastro-esophageal reflux disease without esophagitis; G62.9 Polyneuropathy, unspecified

== ENCOUNTER → 2017-12-11 | Outpatient (CLI) | payer OTHER ==
[~2017-12-11] MED LIST changes: -LIDOCAINE HCL 2% 2 ML VIAL (20MG/ML) ONE; -MIDAZOLAM HCL 1 MG/ML 2ML VIAL ONE; -ONDANSETRON INJ 2 MG/ML 2 ML VIAL ONE; +OPTIRAY 320 IV PRN; -PROPOFOL IV EMULSION 10 MG/ML 20 ML VIAL IV ONE; -SODIUM CHLORIDE 0.9% 500ML 500 ML IV ONE
--- NOTE | 2017-12-11 10:52 | DIAGNOSTIC IMAGING REPORT ---
CT ABD/PELVIS IV AND ORAL CONT CLINICAL HISTORY: R10.9 Abdominal pain of multiple [id number] COMPARISON STUDY: 07/27/2015 TECHNIQUE: Following the IV administration of 93 mL of Optiray-320, CT scan of the abdomen and pelvis was performed from the lung bases to the proximal femurs. Images are reviewed in the axial, sagittal, and coronal planes. IV contrast was administered without complication. A dose lowering technique was utilized adhering to the principles of ALARA. CT DOSE: 266.26 mGy.cm FINDINGS: Lower chest: The heart is normal in size and configuration, without pericardial effusion. The lung bases and pleural spaces are clear. Liver: There is a stable 7 mm hypodensity within the medial segment left hepatic lobe adjacent the falciform ligament. This is not felt to be acute clinical significance. Gallbladder: Unremarkable. Spleen: Normal in size and attenuation. Pancreas: Unremarkable. Adrenal glands: Unremarkable. Kidneys: There are 2 tiny right renal cysts. No solid renal masses are visualized. There is no hydronephrosis. Bowel: There are no transition zones indicate bowel obstruction. The appendix appears normal. There is no acute diverticulitis. There is mild to moderate fecal retention. Clinical correlation with regards to constipation symptoms is recommended. Peritoneum: There is no intraperitoneal free air or abdominal ascites. Vasculature: The abdominal aorta is normal in course and caliber. Adenopathy: None. Pelvic viscera: The uterus appears surgically absent. Skeletal structures: No destructive osseous lesions are seen. IMPRESSION: 1. No evidence of bowel obstruction. No evidence of free air 2. Normal appendix. No acute inflammatory findings. 3. Moderate fecal retention. Electronically signed by: Donis Ulloa M.D. 12/11/2017 10:50 AM Dictated Date/Time: 12/11/2017 10:43 AM
== END | disposition home or self-care (01) ==
LOC: C.CTS 10:10
PROVIDERS: ATTEND Physician Assistant
DX: R10.9 Unspecified abdominal pain (principal); K59.00 Constipation, unspecified

== ENCOUNTER → 2018-02-18 | Outpatient (CLI) | payer OTHER ==
[~2018-02-18] MED LIST changes: -OPTIRAY 320 IV PRN
--- NOTE | 2018-02-19 07:22 | MAMMOGRAPHY REPORT ---
UNILATERAL LEFT DIGITAL DIAGNOSTIC MAMMOGRAM TOMOSYNTHESIS WITH CAD AND TARGETED LEFT ULTRASOUND: 01/22 CLINICAL HISTORY: The patient is here for short interval follow-up of a left 2:30 breast mass which w as previously biopsied July 2017. The pathology showed a fibroepithelial lesion, with different ial including a cellular fibroadenoma or low-grade benign Phyllodes tumor (a hypercellular fibroadeno ma was favored). The patient reports itching and burning of her left nipple for approximately 2 alexa hs. She denies any skin changes of the nipple or bloody nipple discharge. She reports persistent le ft breast pain which she has had for at least 2 years. She also reports persistent nonbloody greenis h yellow left nipple discharge for years. TECHNIQUE: Breast tomosynthesis in addition to standard 2D mammography was performed. Current study was also evaluated with a Computer Aided Detection (CAD) system. Left CC and MLO 2D and tomosynthesi s images were obtained. COMPARISON: Comparison is made to exams dated: 02/18/2018 ultrasound, 08/07/2017 mammogram, 08/07/2017 ultrasound biopsy, 07/31/2017 ultrasound, 07/31/2017 mammogram, and 08/04/2016 ultrasound - [facility]. BREAST COMPOSITION: The tissue of the left breast is heterogeneously dense, which may obscure small masses. FINDINGS: There are no suspicious masses, calcifications, or areas of architectural distortion noted within the left breast mammographically. There has been no significant interval change compared to p rior exams. 2 biopsy marker clips are again noted within the left upper outer quadrant. A partially circumscribed and partially obscured 10 mm mass in the left upper outer quadrant, best seen on the C C tomosynthesis images, is unchanged. Targeted ultrasound was performed of the previously seen left breast masses. In the left breast at 2 :00, 2 cm from the nipple, again noted is a lobulated hypoechoic 11 x 5 x 10 mm mass with an internal echogenic biopsy marker clip. The mass is not significantly changed and was previously biopsied and yielded a benign fibroadenoma. In the left 230 breast, 3 cm from the nipple, again noted is a small hypoechoic mass which measures 4 x 6 x 2 mm, also not significantly changed when accounting for diff erences in measurement technique; an echogenic biopsy marker clip is seen immediately adjacent to thi s mass. The mass was previously biopsied and yielded a fibroepithelial lesion, with differential inc luding a cellular fibroadenoma or low-grade benign Phyllodes tumor. Another hypoechoic solid 11 x 5 x 7 mm mass is seen within the left 1 to 2:00 periareolar breast, which is stable dating back to [place] the June 2015 exam and is considered benign and likely also represents a fibroadenoma. Ultras ound was also performed of the left subareolar breast to evaluate the nipple burning/itching. No tracey picious masses or other suspicious sonographic abnormalities are seen within the left subareolar [address]. A few small cysts were noted, including a small 3 mm cyst in the left subareolar breast. IMPRESSION: ACR-BI-RADS CATEGORY 3: PROBABLY BENIGN, TARGETED ULTRASOUND ACR-BI-RADS CATEGORY 3: PRO BABLY BENIGN 1. Hypoechoic 6 mm mass in the left 230 breast is not significantly changed compared to the 2016 exam. The mass was previously biopsied with pathology showing a fibroepithelial lesion with d ifferential including a cellular fibroadenoma or low-grade benign Phyllodes tumor. Recommend repeat targeted ultrasound of the left breast in 6 months to confirm longer stability of the left 230 breast mass. Routine bilateral mammograms can be performed at that time. 2. No suspicious or mammographic or sonographic abnormality to explain left nipple burning/itching. Recommend clinical follow-up; if symptoms are suspicious clinically then surgical consultation for p ossible biopsy could be obtained. Also recommend continued clinical follow-up for left breast pain. The patient has been verbally notified of the results. Approximately 10% of breast cancers are not detected with mammography. A negative mammographic report should not delay biopsy if a clinically suggestive mass is present. Maylin Montelongo M.D. ah/:02/18/2018 12:07:09 Hydraulic Jack Operator: Chanda ANGUIANO)(Nicanor), [facility] letter sent: Follow Up Recommended 3 BI-RADS Code: ACR-BI-RADS Category 3: Probably Benign Ultrasound BI-RADS: ACR-BI-RADS Category 3: Pr obably Benign
== END | disposition home or self-care (01) ==
LOC: C.MAMM 10:32
PROVIDERS: ATTEND Internal Medicine
DX: N63.20 Unspecified lump in the left breast, unspecified quadrant (principal); N64.4 Mastodynia; L29.8 Other pruritus

== ENCOUNTER → 2018-03-02 | Outpatient (CLI) | payer OTHER ==
--- NOTE | 2018-03-02 12:11 | DIAGNOSTIC IMAGING REPORT ---
LUMBAR SPINE W/O CONTRAST CLINICAL HISTORY: 42 years-old Female presenting with LOW BACK PAIN, severe low back pain, tailbone pain radiating to the buttocks and both feet, numbness and burning, leg weakness. TECHNIQUE: Multisequence, multiplanar MR imaging of the lumbar spine was performed without the use of intravenous contrast. IV contrast: None. COMPARISON: CT of abdomen pelvis from 12/11/2017. FINDINGS: Localizer images: Unremarkable. Straightening of normal lumbar lordosis. Vertebral bodies maintain normal height, alignment, and bone marrow signal intensity with the exception of a T1 hypointense, T2 hyperintense lesion in L1, which is nonspecific. Faint sclerosis in this region suggested on prior CT. Intravertebral discs demonstrate slight desiccation at L4-5, where there is a focal annular fissure. Minimal disc bulge at this level. This does not result in significant effacement of the thecal sac. Minimal bilateral neural foraminal narrowing at L4-5. The remaining levels are normal without evidence of spinal canal or neural foraminal narrowing. The spinal cord ends in good position at L1. Cauda equina normal in morphology. Paraspinal musculature normal. Remaining soft tissues grossly normal. IMPRESSION: 1. Mild focal degenerative change at L4-5 with an annular fissure. No significant spinal canal stenosis. Minimal bilateral neural foraminal narrowing at this level. 2. Indeterminate small lesion in L1, which may correlate with a faint focus of sclerosis on prior CT. This is of uncertain clinical significance. The report will be called/faxed according to standard departmental protocol. Electronically signed by: Isauro Reed M.D. 03/02/2018 12:10 PM Dictated Date/Time: 03/02/2018 12:05 PM
== END | disposition home or self-care (01) ==
LOC: C.MRI 10:57
PROVIDERS: ATTEND Nurse Practitioner Primary Care
DX: M47.26 Other spondylosis with radiculopathy, lumbar region (principal); M48.061 Spinal stenosis, lumbar region without neurogenic claudication; G95.9 Disease of spinal cord, unspecified; G89.4 Chronic pain syndrome; G90.50 Complex regional pain syndrome I, unspecified

== ENCOUNTER 2019-01-05 12:16 | Inpatient (IN) ==
[2019-01-05] MEDS ORDERED: ACETAMINOPHEN 325 MG TAB PO PRN (16:12)
[2019-01-05] MEDS ORDERED: ONDANSETRON INJ 2 MG/ML 2 ML VIAL IV PRN (16:12)
[2019-01-05] MEDS ORDERED: DKA GOAL RANGE 150-250 mg/dl ONE (16:12)
[2019-01-05] MEDS ORDERED: MODERATE STRESS LEVEL ONE (16:12)
[2019-01-05] MEDS ORDERED: PROMETHAZINE HCL 25 MG in SODIUM CHLORIDE 0.9% 50 ML IV PRN (16:47)
[2019-01-05] MEDS ORDERED: HYDROmorphone INJ 0.5 MG/0.5 ML SYR ONE (16:48)
--- NOTE | 2019-01-05 16:52 | History & Physical Report ---
Date of Service January 05, 2019 Assessment & Plan (1) DKA (diabetic ketoacidosis): (2) Metabolic acidosis due to diabetes mellitus: (3) Nausea and vomiting: - Admit to PCU - DKA to be treated with IV fluids determined after getting BMP results, insulin per DKA protocol. Have discussed this with pharmacy. - Obtain baseline labs now: pt refusing ABG, so will order VBG - pt was informed about serial blood draws due to insulin gtt and DKA protocol - Zofran and phenergan for nausea - Allow full liquid diet for now and advance as tolerated - WBC elevated on OSH records, WBC= 33 K, so will check repeat BCx. Original BCx from OSH drawn on 01/03 are NGTD, but will need to be followed for final results by day team - UCx with skin poli, no apparent UTI on OSH results. - Severe pain control with dilaudid 0.5 mg q2H for now, pt takes 2 mg Q6H as outpatient, with a max total of 6 mg daily as per Dr. Iglesias in most recent outpatient note. Reviewed dilaudid Rx in [place] drug portal (4) Diabetes mellitus type 1: - Glycemic pharmacy consulted to assist with DKA protocol as above (5) Gastroparesis: - Chronic, stable, follows with a specialist in [place] however has not seen provider recently. (6) Diabetic neuropathy: - Continue gabapentin 900 mg TID, dilaudid as above. Follows with pain management here. - Stable. (7) Pneumonia: - Has received ceftriaxone and azithromycin starting on 01/03. Already had doses today. Continue. - Follow CXR read, have requested upload. (8) Depression: - Continue trazodone for sleep, hydroxyzine for anxiety/sleep. - Stable, but exacerbated by hospital stay. No suicidal or homicidal ideations. - Hx of alcohol abuse and eating disorder - Tox screen on OSH records was negative. (9) DVT prophylaxis: - Lovenox subq History of Present Illness Chief Complaint: Intractable nausea and vomiting Primary Care Provider: Kai Horner MD This is a 43 yo F with PMHx of chronic pain on opiods, DM I, gastroparesis, peripheral neuropathy, chronic tobacco smoker, HLD, hx of alcohol abuse and hx of eating disorder who presents as a direct transfer from [facility]. Pt was initially admitted to OSH on 01/02/19. The patient reports that her glucose was uncontrollable there, and that she normally see's our physicians and comes to this hospital previously for similar issues so requested transfer. She reports having severe "severe pain all over her body from straining", and states that she has been dry heaving most of the day. She was able to drink juice and some broth this morning and did not vomit afterwards. She is urinating dark urine for several days. A urine culture was nonconfirmatory regarding a UTI. She also notes having a pneumonia which she has been being treated with antibiotics at OSH. Still has complaints of cough with minimal sputum production, but feels pain with coughing. She denies shortness of breath at rest or on exertion. No fever, chills or sweats. Allergies Allergy/AdvReac Type Severity Reaction Status Date / Time AZO Standard Allergy Intermediate HIVES Verified 11/11/17 13:40 naproxen Allergy Intermediate HIVES Verified 11/11/17 13:40 phenazopyridine Allergy Intermediate HIVES Verified 11/11/17 13:40 nicotine AdvReac Intermediate PATCH = Verified 11/11/17 13:40 SKIN IRRIATION/ITCHINESS-LOCALIZED DERMATITIS varenicline AdvReac Intermediate SEVERE Verified 11/11/17 13:40 DEPRESSION Home Medications Home Medications Medication Instructions Recorded Confirmed Type GABAPENTIN (NEURONTIN) 900 mg PO TID #0 07/16/15 History Promethazine (Phenergan ) 12.5 mg PO Q4-6H PRN #0 12/07/15 History Trazodone Hcl (Trazodone) 50 mg PO HS PRN #0 12/22/16 History Insulin Aspart (NOVOLOG FLEXPEN) 1 dose SC UD #0 11/06/17 History Plecanatide (Trulance) 1 tab PO DAILY PRN #0 11/06/17 History Tizanidine (Tizanidine HCl) 1 tab PO TID #0 11/06/17 History hydromorphone 2 mg PO TID PRN 01/05/19 01/05/19 History amitriptyline 50 mg PO HS 01/06/19 01/06/19 History ranitidine HCl 150 mg PO BID 01/06/19 01/06/19 History Past Med/Surg History Medical History History of hysterectomy Gastroparesis Peripheral neuropathy Diabetes mellitus type 1 Surgical History H/O: hemorrhoidectomy History of hemorrhoidectomy History of tonsillectomy and adenoidectomy Social History Current Living Situation: Spouse Feels Safe at Home: Yes Safety Concerns: Feels Safe At This Time Smoking Status: Current every day smoker Tobacco Type: cigarettes Cigarettes per Day: 20 Do You Dip or Chew Tobacco: No Smoking End Date: 01/03/2019 Second Hand Exposure: No Tobacco Cessation Education Requested by Patient: Yes Hx Alcohol Use: No Hx Substance Use: No Beliefs That Will Affect Care: None Preferred Language: Portuguese Communication Ability: Effective Customer Pricing Manager Required: Yes Review of Systems Constitutional: + body aches and + fatigue; no fever, no chills and no sweats Eyes: no diplopia and no worsening vision Ear, Nose, Mouth, Throat: no dizziness, no nasal discharge, no facial pain and no sore throat Respiratory: as per Subjective / HPI, + cough, + pain with cough and + sputum production; no dyspnea, no dyspnea on exertion, no hemoptysis and no wheezing Cardiovascular: no chest pain, no chest pain with activity, no palpitations, no lightheadedness and no syncope Gastrointestinal: + nausea and + vomiting; no constipation and no diarrhea/ loose stools no diarrhea Genitourinary (Female): + urinary frequency; no dysuria and no urinary incontinence Musculoskeletal: no back pain, no joint pain, no swelling and no muscle weakness Integumentary: no rash, no lesions and no wounds Neurologic: no gait abnormality, no falls, no numbness, no dizziness and no syncope Psychiatric: no depression and no anxiety Endocrine: no fatigue Physical Exam 2 Vital Signs (Past 24 Hours): Last Vital Signs Temp 37 C 01/05/19 16:08 Pulse 106 H 01/05/19 16:08 Resp 16 01/05/19 16:08 BP 149/89 H 01/05/19 16:08 Pulse Ox 98 01/05/19 16:08 Physical Exam: General: awake, alert, no apparent distress Head: Normocephalic, atraumatic ENT: PERRL, EOMI, no pharyngeal exudate, mucous membranes dry. Chest: Clear to auscultation, on room air, +faint crackles with deep inspiration. Cardiac: Regular rate and rhythm, no murmur, no JVD, normal peripheral pulses, good capillary refill Abdominal: NABS x 4 quadrants, soft, nondistended, +minimal tenderness to palpation, no rebound or guarding. Extremities: Normal inspection, no peripheral edema or erythema, calfs nontender to palpation Psych: Depressed mood and affect Neuro: AAO x 3, no motor deficits, speech is clear, no peripheral sensory deficits Results & Data Diagnostic Findings CXR disc sent from OSH awaiting upload to our system. Code Status & VTE Plan Code Status FULL Supervising Physician Co-Signing Physician Notes Pt seen/examined following SONIA Norman. Orders and plan of admission formulated with SONIA. 43 y/o F Hx DMI, gastroparesis, chronic pain, alcohol, tobacco and opiate abuse. Transferred from [facility] where she was being treated for DKA and PNM. She arrived without access or adequate records. She was c/o pain and requesting narcotics on arrival. She did not have additional complaints. OE AAO x 3 - no distress S1,2 R CTAB NT, ND No CCE No deficits P: Will continue with a DKA protocol - she will need a PICC AM as access has been an issue Cont Cef Zithro for PNM which is improving She does not exhibit ETOH withdrawal signs We will continue her prescribed dose of Narcotics and would avoid any increase We are pending labs for additional fluid and electrolyte management at the time of admission as she did not arrive with recents from [facility]
[2019-01-05] MEDS ORDERED: PHARMACY GLYCEMIC MGMT CONSULT PRN (17:03)
[2019-01-05] MEDS ORDERED: SODIUM CHLORIDE 0.9% 1000ML 1,000 ML IV SCH (17:15)
[2019-01-05] MEDS ORDERED: INSULIN REGULAR 250 UNITS in SODIUM CHLORIDE 0.9% 247.5 ML IV SCH (17:15)
[2019-01-05 17:20] LABS: Hematocrit (blood only) 39.8 % (37-47); Hemoglobin 13.7 g/dL (12.0-16.0); Mean Corpuscular Hgb Conc 34.4 g/dL (32-36); RDW Coefficient of Variation 14.1 % (11.5-14.5); RDW Standard Deviation 48.5 fL (36.4-46.3); Red Blood Count 4.19 M/uL (4.2-5.4); White Blood Count 14.93 K/uL (4.8-10.8)
[2019-01-05 17:35] LABS: Basophils # (auto) 0.02 K/uL (0-0.2); Basophils % (auto) 0.1 %; Echinocytes 1+; Eosinophils # (auto) 0.04 K/uL (0-0.5); Eosinophils % (auto) 0.3 %; Immature Granulocytes # (auto) 0.06 K/uL (0.00-0.02); Immature Granulocytes % (auto) 0.4 %; Lymphocytes # (auto) 2.96 K/uL (1.2-3.4); Lymphocytes % (auto) 19.8 %; Mean Platelet Volume 11.4 fL (7.4-10.4); Monocytes % (auto) 7.4 %; Neutrophils # (auto) 10.75 K/uL (1.4-6.5); Platelet Count 81 K/uL (130-400); Toxic Vacuolation 1+
[2019-01-05 17:48] LABS: Appearance Urine Clear (Clear); Bilirubin Urine Negative (Negative); Color Urine Yellow; Glucose Urine UA 3+ (Negative); Leukocyte Esterase Urine Negative (Negative); Nitrite Urine Negative (Negative); Protein Urine Negative (Negative); Specific Gravity Urine 1.021 (1.000-1.030); Urobilinogen Urine Negative (Negative)
[2019-01-05] MEDS: HYDROmorphone INJ 0.5 MG/0.5 ML SYR IV PRN ×3 (17:51→22:00)
[2019-01-05 17:58] LABS: BUN Creatinine Ratio 5.7 (10-20); Calcium 8.2 mg/dl (8.5-10.1); Creatinine Clr Calc Pharmacy 88.1 ml/min; Est GFR (African American) 124.2; Est GFR (Non-African American) 107.1; Phosphorus 1.7 mg/dl (2.5-4.9)
[2019-01-05 17:59] LABS: Ketones Urine 3+ (Negative)
[2019-01-05] MEDS ORDERED: cefTRIAXone SODIUM 1,000 MG in DEXTROSE 5% 50 ML IV SCH (18:00)
[2019-01-05] MEDS: INSULIN ASPART 100 UNITS/ML 3 ML PEN SC SCH ×2 (18:20→22:16)
[2019-01-05] MEDS ORDERED: AZITHROMYCIN 250 MG in DEXTROSE 5% 250 ML IV SCH (19:00)
[2019-01-05] MEDS ORDERED: SODIUM CHLORIDE 0.9% IV ONE (20:00)
[2019-01-05] MEDS ORDERED: SODIUM PHOSPHATE IV ONE (20:00)
[2019-01-05] MEDS: SODIUM CHLORIDE 0.45 % 1,000 ML IV SCH (20:05)
[2019-01-05 21:14] LABS: BUN Creatinine Ratio 6.1 (10-20); Calcium 7.6 mg/dl (8.5-10.1); Creatinine Clr Calc Pharmacy 68.8 ml/min; Est GFR (African American) 94.6; Est GFR (Non-African American) 81.6; Magnesium 1.6 mg/dl (1.8-2.4); Potassium 3.8 mmol/L (3.5-5.1)
[2019-01-05 21:57] LABS: Phosphorus 0.6 mg/dl (2.5-4.9)
[2019-01-05] MEDS ORDERED: POTASSIUM PHOS 3 MMOL/1 ML INFUSION IV STA (22:10)
[2019-01-05] MEDS ORDERED: POTASSIUM PHOSPHATE 30 MMOL in SODIUM CHLORIDE 0.9% 500 ML IV ONE (22:30)
[2019-01-05] MEDS ORDERED: DEXTROSE 50% 50 ML SYRINGE IV ONE ×2 (23:23→23:25)
[2019-01-05] MEDS ORDERED: INSULIN GLARGINE SOLOSTAR 100 UNITS/ML 3 ML PEN SC STA (23:35)
[2019-01-05] MEDS ORDERED: DEXTROSE 50% 50 ML SYRINGE IV PRN (23:51)
[2019-01-05] MEDS ORDERED: GLUCOSE 40% GEL 15 GM TUBE PO PRN (23:51)
[2019-01-05] MEDS ORDERED: GLUCAGON FOR INJ 1 MG VIAL IM PRN (23:51)
[2019-01-05] MEDS ORDERED: CARBOHYDRATES FOR HYPOGLYCEMIA PO PRN (23:51)
[2019-01-05] MEDS ORDERED: GLUCOSE 10 TABS/TUBE PO PRN (23:51)
[2019-01-06] MEDS: HYDROmorphone INJ 0.5 MG/0.5 ML SYR IV PRN ×2 (00:11→03:08)
[2019-01-06 00:39] LABS: BUN Creatinine Ratio 5.8 (10-20); Calcium 7.4 mg/dl (8.5-10.1); Creatinine Clr Calc Pharmacy 95.1 ml/min; Est GFR (African American) 127.3; Est GFR (Non-African American) 109.9; Magnesium 1.6 mg/dl (1.8-2.4); Potassium 3.8 mmol/L (3.5-5.1)
[2019-01-06 00:40] LABS: Phosphorus 2.6 mg/dl (2.5-4.9)
[2019-01-06] MEDS: PENDING NSS+20mEq KCL IVF SCH ×3 (00:50→03:29)
[2019-01-06] MEDS ORDERED: MAGNESIUM OXIDE 400 MG TAB PO STA (01:00)
[2019-01-06] MEDS: SODIUM CHLORIDE 0.45 % 1,000 ML IV SCH (01:05)
[2019-01-06] MEDS ORDERED: SODIUM CHLORIDE 0.45 % 1,000 ML IV SCH (02:45)
[2019-01-06] MEDS ORDERED: D5W AND 1/2NSS + 20MEQ KCL 20 MEQ/1,000 ML BAG IV SCH (03:00)
[2019-01-06 04:27] LABS: Hematocrit (blood only) 36.2 % (37-47); Hemoglobin 12.2 g/dL (12.0-16.0); Mean Corpuscular Hgb Conc 33.7 g/dL (32-36); Mean Corpuscular Volume 96.5 fL (80-100); Mean Platelet Volume 10.4 fL (7.4-10.4); Platelet Count 188 K/uL (130-400); RDW Coefficient of Variation 13.8 % (11.5-14.5); RDW Standard Deviation 48.8 fL (36.4-46.3); Red Blood Count 3.75 M/uL (4.2-5.4); White Blood Count 10.53 K/uL (4.8-10.8)
[2019-01-06 04:32] LABS: INR 1.1 (0.9-1.1); Prothrombin Time 11.3 Seconds (9.0-12.0)
[2019-01-06 04:34] LABS: Albumin Level 2.3 gm/dl (3.4-5.0); BUN Creatinine Ratio 6.7 (10-20); Calcium 7.2 mg/dl (8.5-10.1); Est GFR (African American) 129.4; Est GFR (Non-African American) 111.6; Magnesium 1.4 mg/dl (1.8-2.4); Potassium 3.8 mmol/L (3.5-5.1)
[2019-01-06 04:38] LABS: Albumin Globulin Ratio 0.8 (0.9-2); Bilirubin,Total 0.8 mg/dl (0.2-1); Globulin 2.8 gm/dl (2.5-4.0); Phosphorus 3.4 mg/dl (2.5-4.9); Total Protein 5.1 gm/dl (6.4-8.2)
[2019-01-06] MEDS: ENOXAPARIN INJ 40 MG/0.4 ML SYR SQ SCH (06:13)
[2019-01-06 06:38] LABS: Estimated Average Glucose 278 mg/dl
[2019-01-06] MEDS ORDERED: INSULIN GLARGINE SOLOSTAR 100 UNITS/ML 3 ML PEN SC ONE ×2 (08:42→21:00)
[2019-01-06] MEDS: INSULIN ASPART 100 UNITS/ML 3 ML PEN SC SCH ×4 (08:51→20:59)
[2019-01-06] MEDS ORDERED: cefTRIAXone SODIUM 1,000 MG in DEXTROSE 5% 50 ML IV SCH ×2 (09:00→12:00)
[2019-01-06] MEDS ORDERED: MAGNESIUM OXIDE 400 MG TAB PO SCH (09:00)
[2019-01-06 09:29] LABS: BUN Creatinine Ratio 7.3 (10-20); Calcium 7.5 mg/dl (8.5-10.1); Creatinine Clr Calc Pharmacy 105.3 ml/min; Est GFR (African American) 131.6; Est GFR (Non-African American) 113.5; Magnesium 1.7 mg/dl (1.8-2.4); Potassium 3.4 mmol/L (3.5-5.1)
[2019-01-06] MEDS ORDERED: AZITHROMYCIN 250 MG in DEXTROSE 5% 250 ML IV SCH ×2 (10:00→13:00)
[2019-01-06] MEDS: MAGNESIUM SULFATE / D5W 1 GM/100 ML BAG IV SCH ×2 (10:17→11:48)
[2019-01-06] MEDS: CEFDINIR 300 MG CAP PO SCH ×2 (10:46→20:56)
[2019-01-06] MEDS ORDERED: TRAZODONE HCL 100 MG TAB PO PRN (11:28)
[2019-01-06] MEDS ORDERED: PROMETHAZINE HCL 25 MG TAB PO PRN (11:28)
[2019-01-06] MEDS ORDERED: HYDROmorphone INJ 0.5 MG/0.5 ML SYR IV PRN (11:30)
--- NOTE | 2019-01-06 11:35 | Hospitalist Progress Note ---
Date of Service January 06, 2019 Assessment & Plan (1) Nausea and vomiting: This is a 43 yo F with PMHx of chronic pain on opioids, uncontrolled DM I , gastroparesis, peripheral neuropathy, chronic tobacco smoker, HLD, hx of alcohol abuse and hx of eating disorder who presents as a direct transfer from [facility] for DKA and pneumonia. She presented there with intractable nausea/ vomiting, DKA, and sepsis with RICCI and pneumonia. Transferred here as her condition did not seem to be improving Nausea and vomiting resolved now, is feeling hungry -Advance diet to ADA -Condition continue IV fluids at this time as Is closed as below - Zofran and phenergan as needed for nausea (2) DKA (diabetic ketoacidosis): VBG here with pH 7.41 now, no further acidosis, gap is closed Blood sugars are in the high 100s to low 200s -Pharmacy glycemic management consult is appreciated -Transitioning off insulin drip now and onto Lantus -Watch for allergic reaction with Lantus -Replace electrolytes as needed -On IV fluids and will now transition off as she is tolerating p.o. quite well (3) Diabetes mellitus type 1: - Glycemic pharmacy consulted to assist with DKA protocol as above -Severely uncontrolled with hemoglobin A1c of 11.3% She has been on NovoLog every 2 hours at home for many years with the exception of a few brief times where she was on either Lantus or Tarceva-both of these gave her a rash -She follows with endocrinology SONIA Addison -Appreciate diabetic nurse educator evaluation here -Patient agreeable to trying Lantus again as an outpatient (4) Gastroparesis: - Chronic, stable, follows with a specialist in [place] however has not seen provider recently. -Continue dietary plan for gastroparesis -Unsure if she has tried Reglan in the past (5) Diabetic neuropathy: Chronic and severe - Continue gabapentin 900 mg TID, amitriptyline, and will transition her back to her p.o. Dilaudid today from IV Dilaudid . Follows with pain management here. - Stable. (6) Pneumonia: CT of the abdomen pelvis at outside hospital showed groundglass opacities bibasilar possibly consistent with pneumonitis Chest x-ray personally reviewed by me and the image does not appear to have any pneumonia She previously did admit to productive cough with sputum and fevers at the outside hospital She was vomiting profusely prior to admission secondary to her DKA-could be aspiration pneumonia? - Has received ceftriaxone and azithromycin starting on 01/03 -We will continue antibiotics but switch to Omnicef and azithromycin both p.o. to complete a 7-day course Overall much improved -Blood cultures drawn at outside facility-we will follow-up on these results (7) Depression: - Continue trazodone for sleep, hydroxyzine for anxiety/sleep. - Stable, but exacerbated by hospital stay. No suicidal or homicidal ideations. - Hx of alcohol abuse and eating disorder - Tox screen on OSH records was negative. (8) Hypomagnesemia: Magnesium very low at 1.4 -Replaced with IV magnesium -DC p.o. magnesium started last night (9) Hematuria: With gross hematuria noted by patient-not witnessed by me Urinalysis here was normal initially -Repeat UA and treat as indicated for infection No evidence of kidney stone seen on outside CT scan of the abdomen pelvis, no clinical signs of kidney stone either (10) DVT prophylaxis: - Lovenox subq Disposition-remain on telemetry unit Subjective Pt feeling much better todya, no further N/V, is feeling very hungry. Has pain in ribs and neck from wretching prior to admission. No further cough but was having cough productive of brown-black sputum. No BM in 3 days. No abd pain. She does report blood in her urine today, no flank pain. Reports she had an allergic reaction with rash to Lantus when she first tried it in 2010 and hasn't been on it since then. She then broke out in a rash to Tresiba in 10/2018 and has not been on that either. She usually just uses Novolog q2hrs for years and A1C has never been below 9.6%. Discussed her care with the Pharmacist. Review of Systems All systems reviewed & are unremarkable except as noted in HPI & below Physical Exam 2 Vital Signs (Past 24 Hours): Last Vital Signs Temp 37.0 C 01/06/19 07:02 Pulse 82 01/06/19 07:02 Resp 16 01/06/19 07:02 BP 146/94 H 01/06/19 07:02 Pulse Ox 95 01/06/19 07:02 Constitutional: WD/WN, vitals as above Eyes: PERRL, conjunctivae normal, anicteric sclerae ENMT: external ear and nose normal, oropharynx normal Neck: trachea midline, no thyromegaly Respiratory: normal respiratory effort, lungs clear to auscultation Cardiovascular: RRR, no murmur, no edema Gastrointestinal (Abdomen): normal bowel sounds, soft, nontender, no hepatosplenomegaly Musculoskeletal: Extremities: extremities normal to inspection; no cyanosis and no clubbing Skin: no rashes, warm and dry Neurologic: moves all extremities and awake; no focal motor deficits Psychiatric: A+Ox3, euthymic affect Results & Data Laboratory Results 01/06/19 01/06/19 01/06/19 Range/Units 11:12 10:03 09:04 WBC (4.8-10.8) K/uL RBC (4.2-5.4) M/uL Hgb (12.0-16.0) g/dL Hct (37-47) % MCV (80-100) fL MCH (25-34) pg MCHC (32-36) g/dL RDW Std Deviation (36.4-46.3) fL RDW Coeff of Kore[place] (11.5-14.5) % Plt Count (130-400) K/uL MPV (7.4-10.4) fL Immature Gran % (Auto) % Neut % (Auto) % Lymph % (Auto) % [place] % (Auto) % Eos % (Auto) % Baso % (Auto) % Immature Gran # (Auto) (0.00-0.02) K/uL Neut # (Auto) (1.4-6.5) K/uL Lymph # (Auto) (1.2-3.4) K/uL [place] # (Auto) (0.11-0.59) K/uL Eos # (Auto) (0-0.5) K/uL Baso # (Auto) (0-0.2) K/uL Toxic Vacuolation Platelet Estimate (Normal) Echinocytes PT INR VBG pH (7.36-7.41) Sodium (136-145) mmol/L Potassium (3.5-5.1) mmol/L Chloride (98-107) mmol/L Carbon Dioxide (21-32) mmol/L Anion Gap (3-11) BUN (7-18) mg/dl Creatinine (0.6-1.2) mg/dl Est Cr Clr Drug Dosing ml/min Est GFR ( Amer) Est GFR (Non-Af Amer) BUN/Creatinine Ratio (10-20) Glucose (70-99) mg/dl POC Glucose 218 H 264 H 224 H (70-99) Estimat Average Glucose mg/dl Hemoglobin A1c (4.5-5.6) % Calcium (8.5-10.1) mg/dl Phosphorus (2.5-4.9) mg/dl Magnesium (1.8-2.4) mg/dl Total Bilirubin (0.2-1) mg/dl AST (15-37) U/L ALT (12-78) U/L Alkaline Phosphatase (45-117) U/L Total Protein (6.4-8.2) gm/dl Albumin (3.4-5.0) gm/dl Globulin (2.5-4.0) gm/dl Albumin/Globulin Ratio (0.9-2) Beta-Hydroxybutyric Acd (0.2-2.81) mg/dl Urine Color Urine Appearance (Clear) Urine pH (4.5-7.5) Ur Specific [place] (1.000-1.030) Urine Protein (Negative) Urine Glucose (UA) (Negative) Urine Ketones (Negative) Urine Blood (Negative) Urine Nitrite (Negative) Urine Bilirubin (Negative) Urine Urobilinogen (Negative) Ur Leukocyte Esterase (Negative) 01/06/19 01/06/19 01/06/19 Range/Units 08:45 08:45 08:01 WBC (4.8-10.8) K/uL RBC (4.2-5.4) M/uL Hgb (12.0-16.0) g/dL Hct (37-47) % MCV (80-100) fL MCH (25-34) pg MCHC (32-36) g/dL RDW Std Deviation (36.4-46.3) fL RDW Coeff of Korey (11.5-14.5) % Plt Count (130-400) K/uL MPV (7.4-10.4) fL Immature Gran % (Auto) % Neut % (Auto) % Lymph % (Auto) % [place] % (Auto) % Eos % (Auto) % Baso % (Auto) % Immature Gran # (Auto) (0.00-0.02) K/uL Neut # (Auto) (1.4-6.5) K/uL Lymph # (Auto) (1.2-3.4) K/uL [place] # (Auto) (0.11-0.59) K/uL Eos # (Auto) (0-0.5) K/uL Baso # (Auto) (0-0.2) K/uL Toxic Vacuolation Platelet Estimate (Normal) Echinocytes PT INR VBG pH 7.45 H (7.36-7.41) Sodium 138 (136-145) mmol/L Potassium 3.4 L (3.5-5.1) mmol/L Chloride 107 (98-107) mmol/L Carbon Dioxide 23 (21-32) mmol/L Anion Gap 8.0 (3-11) BUN 4 L (7-18) mg/dl Creatinine 0.57 L (0.6-1.2) mg/dl Est Cr Clr Drug Dosing 105.3 ml/min Est GFR ( Amer) 131.6 Est GFR (Non-Af Amer) 113.5 BUN/Creatinine Ratio 7.3 L (10-20) Glucose 245 H (70-99) mg/dl POC Glucose 224 H (70-99) Estimat Average Glucose mg/dl Hemoglobin A1c (4.5-5.6) % Calcium 7.5 L (8.5-10.1) mg/dl Phosphorus 2.0 L D (2.5-4.9) mg/dl Magnesium 1.7 L (1.8-2.4) mg/dl Total Bilirubin (0.2-1) mg/dl AST (15-37) U/L ALT (12-78) U/L Alkaline Phosphatase (45-117) U/L Total Protein (6.4-8.2) gm/dl Albumin (3.4-5.0) gm/dl Globulin (2.5-4.0) gm/dl Albumin/Globulin Ratio (0.9-2) Beta-Hydroxybutyric Acd (0.2-2.81) mg/dl Urine Color Urine Appearance (Clear) Urine pH (4.5-7.5) Ur Specific [place] (1.000-1.030) Urine Protein (Negative) Urine Glucose (UA) (Negative) Urine Ketones (Negative) Urine Blood (Negative) Urine Nitrite (Negative) Urine Bilirubin (Negative) Urine Urobilinogen (Negative) Ur Leukocyte Esterase (Negative) 01/06/19 01/06/19 01/06/19 Range/Units 07:00 06:02 04:56 WBC (4.8-10.8) K/uL RBC (4.2-5.4) M/uL Hgb (12.0-16.0) g/dL Hct (37-47) % MCV (80-100) fL MCH (25-34) pg MCHC (32-36) g/dL RDW Std Deviation (36.4-46.3) fL RDW Coeff of Korey (11.5-14.5) % Plt Count (130-400) K/uL MPV (7.4-10.4) fL Immature Gran % (Auto) % Neut % (Auto) % Lymph % (Auto) % [place] % (Auto) % Eos % (Auto) % Baso % (Auto) % Immature Gran # (Auto) (0.00-0.02) K/uL Neut # (Auto) (1.4-6.5) K/uL Lymph # (Auto) (1.2-3.4) K/uL [place] # (Auto) (0.11-0.59) K/uL Eos # (Auto) (0-0.5) K/uL Baso # (Auto) (0-0.2) K/uL Toxic Vacuolation Platelet Estimate (Normal) Echinocytes PT INR VBG pH (7.36-7.41) Sodium (136-145) mmol/L Potassium (3.5-5.1) mmol/L Chloride (98-107) mmol/L Carbon Dioxide (21-32) mmol/L Anion Gap (3-11) BUN (7-18) mg/dl Creatinine (0.6-1.2) mg/dl Est Cr Clr Drug Dosing ml/min Est GFR ( Amer) Est GFR (Non-Af Amer) BUN/Creatinine Ratio (10-20) Glucose (70-99) mg/dl POC Glucose 244 H 247 H 186 H (70-99) Estimat Average Glucose mg/dl Hemoglobin A1c (4.5-5.6) % Calcium (8.5-10.1) mg/dl Phosphorus (2.5-4.9) mg/dl Magnesium (1.8-2.4) mg/dl Total Bilirubin (0.2-1) mg/dl AST (15-37) U/L ALT (12-78) U/L Alkaline Phosphatase (45-117) U/L Total Protein (6.4-8.2) gm/dl Albumin (3.4-5.0) gm/dl Globulin (2.5-4.0) gm/dl Albumin/Globulin Ratio (0.9-2) Beta-Hydroxybutyric Acd (0.2-2.81) mg/dl Urine Color Urine Appearance (Clear) Urine pH (4.5-7.5) Ur Specific [place] (1.000-1.030) Urine Protein (Negative) Urine Glucose (UA) (Negative) Urine Ketones (Negative) Urine Blood (Negative) Urine Nitrite (Negative) Urine Bilirubin (Negative) Urine Urobilinogen (Negative) Ur Leukocyte Esterase (Negative) 01/06/19 01/06/19 01/06/19 Range/Units 04:00 03:56 03:56 WBC (4.8-10.8) K/uL RBC (4.2-5.4) M/uL Hgb (12.0-16.0) g/dL Hct (37-47) % MCV (80-100) fL MCH (25-34) pg MCHC (32-36) g/dL RDW Std Deviation (36.4-46.3) fL RDW Coeff of Korey (11.5-14.5) % Plt Count (130-400) K/uL MPV (7.4-10.4) fL Immature Gran % (Auto) % Neut % (Auto) % Lymph % (Auto) % [place] % (Auto) % Eos % (Auto) % Baso % (Auto) % Immature Gran # (Auto) (0.00-0.02) K/uL Neut # (Auto) (1.4-6.5) K/uL Lymph # (Auto) (1.2-3.4) K/uL [place] # (Auto) (0.11-0.59) K/uL Eos # (Auto) (0-0.5) K/uL Baso # (Auto) (0-0.2) K/uL Toxic Vacuolation Platelet Estimate (Normal) Echinocytes PT 11.3 INR 1.1 VBG pH (7.36-7.41) Sodium (136-145) mmol/L Potassium (3.5-5.1) mmol/L Chloride (98-107) mmol/L Carbon Dioxide (21-32) mmol/L Anion Gap (3-11) BUN (7-18) mg/dl Creatinine (0.6-1.2) mg/dl Est Cr Clr Drug Dosing ml/min Est GFR ( Amer) Est GFR (Non-Af Amer) BUN/Creatinine Ratio (10-20) Glucose (70-99) mg/dl POC Glucose 150 H (70-99) Estimat Average Glucose 278 mg/dl Hemoglobin A1c 11.3 H (4.5-5.6) % Calcium (8.5-10.1) mg/dl Phosphorus (2.5-4.9) mg/dl Magnesium (1.8-2.4) mg/dl Total Bilirubin (0.2-1) mg/dl AST (15-37) U/L ALT (12-78) U/L Alkaline Phosphatase (45-117) U/L Total Protein (6.4-8.2) gm/dl Albumin (3.4-5.0) gm/dl Globulin (2.5-4.0) gm/dl Albumin/Globulin Ratio (0.9-2) Beta-Hydroxybutyric Acd (0.2-2.81) mg/dl Urine Color Urine Appearance (Clear) Urine pH (4.5-7.5) Ur Specific [place] (1.000-1.030) Urine Protein (Negative) Urine Glucose (UA) (Negative) Urine Ketones (Negative) Urine Blood (Negative) Urine Nitrite (Negative) Urine Bilirubin (Negative) Urine Urobilinogen (Negative) Ur Leukocyte Esterase (Negative) 01/06/19 01/06/19 01/06/19 Range/Units 03:56 03:56 03:56 WBC 10.53 (4.8-10.8) K/uL RBC 3.75 L (4.2-5.4) M/uL Hgb 12.2 (12.0-16.0) g/dL Hct 36.2 L (37-47) % MCV 96.5 (80-100) fL MCH 32.5 (25-34) pg MCHC 33.7 (32-36) g/dL RDW Std Deviation 48.8 H (36.4-46.3) fL RDW Coeff of Korey 13.8 (11.5-14.5) % Plt Count 188 D (130-400) K/uL MPV 10.4 (7.4-10.4) fL Immature Gran % (Auto) % Neut % (Auto) % Lymph % (Auto) % [place] % (Auto) % Eos % (Auto) % Baso % (Auto) % Immature Gran # (Auto) (0.00-0.02) K/uL Neut # (Auto) (1.4-6.5) K/uL Lymph # (Auto) (1.2-3.4) K/uL [place] # (Auto) (0.11-0.59) K/uL Eos # (Auto) (0-0.5) K/uL Baso # (Auto) (0-0.2) K/uL Toxic Vacuolation Platelet Estimate (Normal) Echinocytes PT INR VBG pH 7.41 (7.36-7.41) Sodium 139 (136-145) mmol/L Potassium 3.8 (3.5-5.1) mmol/L Chloride 110 H (98-107) mmol/L Carbon Dioxide 25 (21-32) mmol/L Anion Gap 4.0 (3-11) BUN 4 L (7-18) mg/dl Creatinine 0.60 (0.6-1.2) mg/dl Est Cr Clr Drug Dosing 100.0 ml/min Est GFR ( Amer) 129.4 Est GFR (Non-Af Amer) 111.6 BUN/Creatinine Ratio 6.7 L (10-20) Glucose 142 H (70-99) mg/dl POC Glucose (70-99) Estimat Average Glucose mg/dl Hemoglobin A1c (4.5-5.6) % Calcium 7.2 L (8.5-10.1) mg/dl Phosphorus 3.4 (2.5-4.9) mg/dl Magnesium 1.4 L (1.8-2.4) mg/dl Total Bilirubin 0.8 (0.2-1) mg/dl AST 78 H (15-37) U/L ALT 39 (12-78) U/L Alkaline Phosphatase 101 (45-117) U/L Total Protein 5.1 L (6.4-8.2) gm/dl Albumin 2.3 L (3.4-5.0) gm/dl Globulin 2.8 (2.5-4.0) gm/dl Albumin/Globulin Ratio 0.8 L (0.9-2) Beta-Hydroxybutyric Acd (0.2-2.81) mg/dl Urine Color Urine Appearance (Clear) Urine pH (4.5-7.5) Ur Specific [place] (1.000-1.030) Urine Protein (Negative) Urine Glucose (UA) (Negative) Urine Ketones (Negative) Urine Blood (Negative) Urine Nitrite (Negative) Urine Bilirubin (Negative) Urine Urobilinogen (Negative) Ur Leukocyte Esterase (Negative) 01/06/19 01/06/19 01/06/19 Range/Units 02:58 02:38 02:19 WBC (4.8-10.8) K/uL RBC (4.2-5.4) M/uL Hgb (12.0-16.0) g/dL Hct (37-47) % MCV (80-100) fL MCH (25-34) pg MCHC (32-36) g/dL RDW Std Deviation (36.4-46.3) fL RDW Coeff of Korey (11.5-14.5) % Plt Count (130-400) K/uL MPV (7.4-10.4) fL Immature Gran % (Auto) % Neut % (Auto) % Lymph % (Auto) % [place] % (Auto) % Eos % (Auto) % Baso % (Auto) % Immature Gran # (Auto) (0.00-0.02) K/uL Neut # (Auto) (1.4-6.5) K/uL Lymph # (Auto) (1.2-3.4) K/uL [place] # (Auto) (0.11-0.59) K/uL Eos # (Auto) (0-0.5) K/uL Baso # (Auto) (0-0.2) K/uL Toxic Vacuolation Platelet Estimate (Normal) Echinocytes PT INR VBG pH (7.36-7.41) Sodium (136-145) mmol/L Potassium (3.5-5.1) mmol/L Chloride (98-107) mmol/L Carbon Dioxide (21-32) mmol/L Anion Gap (3-11) BUN (7-18) mg/dl Creatinine (0.6-1.2) mg/dl Est Cr Clr Drug Dosing ml/min Est GFR ( Amer) Est GFR (Non-Af Amer) BUN/Creatinine Ratio (10-20) Glucose (70-99) mg/dl POC Glucose 151 H 147 H 93 (70-99) Estimat Average Glucose mg/dl Hemoglobin A1c (4.5-5.6) % Calcium (8.5-10.1) mg/dl Phosphorus (2.5-4.9) mg/dl Magnesium (1.8-2.4) mg/dl Total Bilirubin (0.2-1) mg/dl AST (15-37) U/L ALT (12-78) U/L Alkaline Phosphatase (45-117) U/L Total Protein (6.4-8.2) gm/dl Albumin (3.4-5.0) gm/dl Globulin (2.5-4.0) gm/dl Albumin/Globulin Ratio (0.9-2) Beta-Hydroxybutyric Acd (0.2-2.81) mg/dl Urine Color Urine Appearance (Clear) Urine pH (4.5-7.5) Ur Specific [place] (1.000-1.030) Urine Protein (Negative) Urine Glucose (UA) (Negative) Urine Ketones (Negative) Urine Blood (Negative) Urine Nitrite (Negative) Urine Bilirubin (Negative) Urine Urobilinogen (Negative) Ur Leukocyte Esterase (Negative) 01/06/19 01/06/19 01/06/19 Range/Units 02:04 00:58 00:11 WBC (4.8-10.8) K/uL RBC (4.2-5.4) M/uL Hgb (12.0-16.0) g/dL Hct (37-47) % MCV (80-100) fL MCH (25-34) pg MCHC (32-36) g/dL RDW Std Deviation (36.4-46.3) fL RDW Coeff of Korey (11.5-14.5) % Plt Count (130-400) K/uL MPV (7.4-10.4) fL Immature Gran % (Auto) % Neut % (Auto) % Lymph % (Auto) % [place] % (Auto) % Eos % (Auto) % Baso % (Auto) % Immature Gran # (Auto) (0.00-0.02) K/uL Neut # (Auto) (1.4-6.5) K/uL Lymph # (Auto) (1.2-3.4) K/uL [place] # (Auto) (0.11-0.59) K/uL Eos # (Auto) (0-0.5) K/uL Baso # (Auto) (0-0.2) K/uL Toxic Vacuolation Platelet Estimate (Normal) Echinocytes PT INR VBG pH 7.42 H (7.36-7.41) Sodium (136-145) mmol/L Potassium (3.5-5.1) mmol/L Chloride (98-107) mmol/L Carbon Dioxide (21-32) mmol/L Anion Gap (3-11) BUN (7-18) mg/dl Creatinine (0.6-1.2) mg/dl Est Cr Clr Drug Dosing ml/min Est GFR ( Amer) Est GFR (Non-Af Amer) BUN/Creatinine Ratio (10-20) Glucose (70-99) mg/dl POC Glucose 103 H 136 H (70-99) Estimat Average Glucose mg/dl Hemoglobin A1c (4.5-5.6) % Calcium (8.5-10.1) mg/dl Phosphorus (2.5-4.9) mg/dl Magnesium (1.8-2.4) mg/dl Total Bilirubin (0.2-1) mg/dl AST (15-37) U/L ALT (12-78) U/L Alkaline Phosphatase (45-117) U/L Total Protein (6.4-8.2) gm/dl Albumin (3.4-5.0) gm/dl Globulin (2.5-4.0) gm/dl Albumin/Globulin Ratio (0.9-2) Beta-Hydroxybutyric Acd (0.2-2.81) mg/dl Urine Color Urine Appearance (Clear) Urine pH (4.5-7.5) Ur Specific [place] (1.000-1.030) Urine Protein (Negative) Urine Glucose (UA) (Negative) Urine Ketones (Negative) Urine Blood (Negative) Urine Nitrite (Negative) Urine Bilirubin (Negative) Urine Urobilinogen (Negative) Ur Leukocyte Esterase (Negative) 01/06/19 01/06/19 01/05/19 Range/Units 00:11 00:09 23:41 WBC (4.8-10.8) K/uL RBC (4.2-5.4) M/uL Hgb (12.0-16.0) g/dL Hct (37-47) % MCV (80-100) fL MCH (25-34) pg MCHC (32-36) g/dL RDW Std Deviation (36.4-46.3) fL RDW Coeff of Korey (11.5-14.5) % Plt Count (130-400) K/uL MPV (7.4-10.4) fL Immature Gran % (Auto) % Neut % (Auto) % Lymph % (Auto) % [place] % (Auto) % Eos % (Auto) % Baso % (Auto) % Immature Gran # (Auto) (0.00-0.02) K/uL Neut # (Auto) (1.4-6.5) K/uL Lymph # (Auto) (1.2-3.4) K/uL [place] # (Auto) (0.11-0.59) K/uL Eos # (Auto) (0-0.5) K/uL Baso # (Auto) (0-0.2) K/uL Toxic Vacuolation Platelet Estimate (Normal) Echinocytes PT INR VBG pH (7.36-7.41) Sodium 140 (136-145) mmol/L Potassium 3.8 (3.5-5.1) mmol/L Chloride 110 H (98-107) mmol/L Carbon Dioxide 25 (21-32) mmol/L Anion Gap 5.0 (3-11) BUN 4 L (7-18) mg/dl Creatinine 0.63 (0.6-1.2) mg/dl Est Cr Clr Drug Dosing 95.1 ml/min Est GFR ( Amer) 127.3 Est GFR (Non-Af Amer) 109.9 BUN/Creatinine Ratio 5.8 L (10-20) Glucose 151 H (70-99) mg/dl POC Glucose 153 H 158 H (70-99) Estimat Average Glucose mg/dl Hemoglobin A1c (4.5-5.6) % Calcium 7.4 L (8.5-10.1) mg/dl Phosphorus 2.6 D (2.5-4.9) mg/dl Magnesium 1.6 L (1.8-2.4) mg/dl Total Bilirubin (0.2-1) mg/dl AST (15-37) U/L ALT (12-78) U/L Alkaline Phosphatase (45-117) U/L Total Protein (6.4-8.2) gm/dl Albumin (3.4-5.0) gm/dl Globulin (2.5-4.0) gm/dl Albumin/Globulin Ratio (0.9-2) Beta-Hydroxybutyric Acd (0.2-2.81) mg/dl Urine Color Urine Appearance (Clear) Urine pH (4.5-7.5) Ur Specific [place] (1.000-1.030) Urine Protein (Negative) Urine Glucose (UA) (Negative) Urine Ketones (Negative) Urine Blood (Negative) Urine Nitrite (Negative) Urine Bilirubin (Negative) Urine Urobilinogen (Negative) Ur Leukocyte Esterase (Negative) 01/05/19 01/05/19 01/05/19 Range/Units 23:21 23:06 21:51 WBC (4.8-10.8) K/uL RBC (4.2-5.4) M/uL Hgb (12.0-16.0) g/dL Hct (37-47) % MCV (80-100) fL MCH (25-34) pg MCHC (32-36) g/dL RDW Std Deviation (36.4-46.3) fL RDW Coeff of Korey (11.5-14.5) % Plt Count (130-400) K/uL MPV (7.4-10.4) fL Immature Gran % (Auto) % Neut % (Auto) % Lymph % (Auto) % [place] % (Auto) % Eos % (Auto) % Baso % (Auto) % Immature Gran # (Auto) (0.00-0.02) K/uL Neut # (Auto) (1.4-6.5) K/uL Lymph # (Auto) (1.2-3.4) K/uL [place] # (Auto) (0.11-0.59) K/uL Eos # (Auto) (0-0.5) K/uL Baso # (Auto) (0-0.2) K/uL Toxic Vacuolation Platelet Estimate (Normal) Echinocytes PT INR VBG pH (7.36-7.41) Sodium (136-145) mmol/L Potassium (3.5-5.1) mmol/L Chloride (98-107) mmol/L Carbon Dioxide (21-32) mmol/L Anion Gap (3-11) BUN (7-18) mg/dl Creatinine (0.6-1.2) mg/dl Est Cr Clr Drug Dosing ml/min Est GFR ( Amer) Est GFR (Non-Af Amer) BUN/Creatinine Ratio (10-20) Glucose (70-99) mg/dl POC Glucose 96 102 H 151 H (70-99) Estimat Average Glucose mg/dl Hemoglobin A1c (4.5-5.6) % Calcium (8.5-10.1) mg/dl Phosphorus (2.5-4.9) mg/dl Magnesium (1.8-2.4) mg/dl Total Bilirubin (0.2-1) mg/dl AST (15-37) U/L ALT (12-78) U/L Alkaline Phosphatase (45-117) U/L Total Protein (6.4-8.2) gm/dl Albumin (3.4-5.0) gm/dl Globulin (2.5-4.0) gm/dl Albumin/Globulin Ratio (0.9-2) Beta-Hydroxybutyric Acd (0.2-2.81) mg/dl Urine Color Urine Appearance (Clear) Urine pH (4.5-7.5) Ur Specific [place] (1.000-1.030) Urine Protein (Negative) Urine Glucose (UA) (Negative) Urine Ketones (Negative) Urine Blood (Negative) Urine Nitrite (Negative) Urine Bilirubin (Negative) Urine Urobilinogen (Negative) Ur Leukocyte Esterase (Negative) 01/05/19 01/05/19 01/05/19 Range/Units 20:40 20:33 19:12 WBC (4.8-10.8) K/uL RBC (4.2-5.4) M/uL Hgb (12.0-16.0) g/dL Hct (37-47) % MCV (80-100) fL MCH (25-34) pg MCHC (32-36) g/dL RDW Std Deviation (36.4-46.3) fL RDW Coeff of Korey (11.5-14.5) % Plt Count (130-400) K/uL MPV (7.4-10.4) fL Immature Gran % (Auto) % Neut % (Auto) % Lymph % (Auto) % [place] % (Auto) % Eos % (Auto) % Baso % (Auto) % Immature Gran # (Auto) (0.00-0.02) K/uL Neut # (Auto) (1.4-6.5) K/uL Lymph # (Auto) (1.2-3.4) K/uL [place] # (Auto) (0.11-0.59) K/uL Eos # (Auto) (0-0.5) K/uL Baso # (Auto) (0-0.2) K/uL Toxic Vacuolation Platelet Estimate (Normal) Echinocytes PT INR VBG pH (7.36-7.41) Sodium 138 (136-145) mmol/L Potassium 3.8 (3.5-5.1) mmol/L Chloride 108 H (98-107) mmol/L Carbon Dioxide 17 L (21-32) mmol/L Anion Gap 13.0 H (3-11) BUN 5 L (7-18) mg/dl Creatinine 0.87 (0.6-1.2) mg/dl Est Cr Clr Drug Dosing 68.8 ml/min Est GFR ( Amer) 94.6 Est GFR (Non-Af Amer) 81.6 BUN/Creatinine Ratio 6.1 L (10-20) Glucose 176 H (70-99) mg/dl POC Glucose 189 H 307 H (70-99) Estimat Average Glucose mg/dl Hemoglobin A1c (4.5-5.6) % Calcium 7.6 L (8.5-10.1) mg/dl Phosphorus 0.6 L* D (2.5-4.9) mg/dl Magnesium 1.6 L (1.8-2.4) mg/dl Total Bilirubin (0.2-1) mg/dl AST (15-37) U/L ALT (12-78) U/L Alkaline Phosphatase (45-117) U/L Total Protein (6.4-8.2) gm/dl Albumin (3.4-5.0) gm/dl Globulin (2.5-4.0) gm/dl Albumin/Globulin Ratio (0.9-2) Beta-Hydroxybutyric Acd (0.2-2.81) mg/dl Urine Color Urine Appearance (Clear) Urine pH (4.5-7.5) Ur Specific [place] (1.000-1.030) Urine Protein (Negative) Urine Glucose (UA) (Negative) Urine Ketones (Negative) Urine Blood (Negative) Urine Nitrite (Negative) Urine Bilirubin (Negative) Urine Urobilinogen (Negative) Ur Leukocyte Esterase (Negative) 01/05/19 01/05/19 01/05/19 Range/Units 18:06 18:06 18:06 WBC (4.8-10.8) K/uL RBC (4.2-5.4) M/uL Hgb (12.0-16.0) g/dL Hct (37-47) % MCV (80-100) fL MCH (25-34) pg MCHC (32-36) g/dL RDW Std Deviation (36.4-46.3) fL RDW Coeff of Korey (11.5-14.5) % Plt Count (130-400) K/uL MPV (7.4-10.4) fL Immature Gran % (Auto) % Neut % (Auto) % Lymph % (Auto) % [place] % (Auto) % Eos % (Auto) % Baso % (Auto) % Immature Gran # (Auto) (0.00-0.02) K/uL Neut # (Auto) (1.4-6.5) K/uL Lymph # (Auto) (1.2-3.4) K/uL [place] # (Auto) (0.11-0.59) K/uL Eos # (Auto) (0-0.5) K/uL Baso # (Auto) (0-0.2) K/uL Toxic Vacuolation Platelet Estimate (Normal) Echinocytes PT Cancelled INR Cancelled VBG pH 7.35 L (7.36-7.41) Sodium (136-145) mmol/L Potassium Cancelled (3.5-5.1) mmol/L Chloride (98-107) mmol/L Carbon Dioxide (21-32) mmol/L Anion Gap (3-11) BUN (7-18) mg/dl Creatinine (0.6-1.2) mg/dl Est Cr Clr Drug Dosing ml/min Est GFR ( Amer) Est GFR (Non-Af Amer) BUN/Creatinine Ratio (10-20) Glucose (70-99) mg/dl POC Glucose (70-99) Estimat Average Glucose mg/dl Hemoglobin A1c (4.5-5.6) % Calcium (8.5-10.1) mg/dl Phosphorus (2.5-4.9) mg/dl Magnesium Cancelled (1.8-2.4) mg/dl Total Bilirubin (0.2-1) mg/dl AST (15-37) U/L ALT (12-78) U/L Alkaline Phosphatase (45-117) U/L Total Protein (6.4-8.2) gm/dl Albumin (3.4-5.0) gm/dl Globulin (2.5-4.0) gm/dl Albumin/Globulin Ratio (0.9-2) Beta-Hydroxybutyric Acd Cancelled (0.2-2.81) mg/dl Urine Color Urine Appearance (Clear) Urine pH (4.5-7.5) Ur Specific [place] (1.000-1.030) Urine Protein (Negative) Urine Glucose (UA) (Negative) Urine Ketones (Negative) Urine Blood (Negative) Urine Nitrite (Negative) Urine Bilirubin (Negative) Urine Urobilinogen (Negative) Ur Leukocyte Esterase (Negative) 01/05/19 01/05/19 01/05/19 Range/Units 17:30 16:50 16:50 WBC 14.93 H (4.8-10.8) K/uL RBC 4.19 L (4.2-5.4) M/uL Hgb 13.7 (12.0-16.0) g/dL Hct 39.8 (37-47) % MCV 95.0 (80-100) fL MCH 32.7 (25-34) pg MCHC 34.4 (32-36) g/dL RDW Std Deviation 48.5 H (36.4-46.3) fL RDW Coeff of Korey 14.1 (11.5-14.5) % Plt Count 81 L (130-400) K/uL MPV 11.4 H (7.4-10.4) fL Immature Gran % (Auto) 0.4 % Neut % (Auto) 72.0 % Lymph % (Auto) 19.8 % [place] % (Auto) 7.4 % Eos % (Auto) 0.3 % Baso % (Auto) 0.1 % Immature Gran # (Auto) 0.06 H (0.00-0.02) K/uL Neut # (Auto) 10.75 H (1.4-6.5) K/uL Lymph # (Auto) 2.96 (1.2-3.4) K/uL [place] # (Auto) 1.10 H (0.11-0.59) K/uL Eos # (Auto) 0.04 (0-0.5) K/uL Baso # (Auto) 0.02 (0-0.2) K/uL Toxic Vacuolation 1+ Platelet Estimate Decreased (Normal) Echinocytes 1+ PT INR VBG pH (7.36-7.41) Sodium 135 L (136-145) mmol/L Potassium (3.5-5.1) mmol/L Chloride 105 (98-107) mmol/L Carbon Dioxide 20 L (21-32) mmol/L Anion Gap 10.0 (3-11) BUN 4 L (7-18) mg/dl Creatinine 0.68 (0.6-1.2) mg/dl Est Cr Clr Drug Dosing 88.1 ml/min Est GFR ( Amer) 124.2 Est GFR (Non-Af Amer) 107.1 BUN/Creatinine Ratio 5.7 L (10-20) Glucose 319 H (70-99) mg/dl POC Glucose (70-99) Estimat Average Glucose mg/dl Hemoglobin A1c (4.5-5.6) % Calcium 8.2 L (8.5-10.1) mg/dl Phosphorus 1.7 L (2.5-4.9) mg/dl Magnesium (1.8-2.4) mg/dl Total Bilirubin (0.2-1) mg/dl AST (15-37) U/L ALT (12-78) U/L Alkaline Phosphatase (45-117) U/L Total Protein (6.4-8.2) gm/dl Albumin (3.4-5.0) gm/dl Globulin (2.5-4.0) gm/dl Albumin/Globulin Ratio (0.9-2) Beta-Hydroxybutyric Acd (0.2-2.81) mg/dl Urine Color Yellow Urine Appearance Clear (Clear) Urine pH 6.0 (4.5-7.5) Ur Specific [place] 1.021 (1.000-1.030) Urine Protein Negative (Negative) Urine Glucose (UA) 3+ H (Negative) Urine Ketones 3+ H (Negative) Urine Blood Negative (Negative) Urine Nitrite Negative (Negative) Urine Bilirubin Negative (Negative) Urine Urobilinogen Negative (Negative) Ur Leukocyte Esterase Negative (Negative) 01/05/19 Range/Units 16:01 WBC (4.8-10.8) K/uL RBC (4.2-5.4) M/uL Hgb (12.0-16.0) g/dL Hct (37-47) % MCV (80-100) fL MCH (25-34) pg MCHC (32-36) g/dL RDW Std Deviation (36.4-46.3) fL RDW Coeff of Korey (11.5-14.5) % Plt Count (130-400) K/uL MPV (7.4-10.4) fL Immature Gran % (Auto) % Neut % (Auto) % Lymph % (Auto) % [place] % (Auto) % Eos % (Auto) % Baso % (Auto) % Immature Gran # (Auto) (0.00-0.02) K/uL Neut # (Auto) (1.4-6.5) K/uL Lymph # (Auto) (1.2-3.4) K/uL [place] # (Auto) (0.11-0.59) K/uL Eos # (Auto) (0-0.5) K/uL Baso # (Auto) (0-0.2) K/uL Toxic Vacuolation Platelet Estimate (Normal) Echinocytes PT INR VBG pH (7.36-7.41) Sodium (136-145) mmol/L Potassium (3.5-5.1) mmol/L Chloride (98-107) mmol/L Carbon Dioxide (21-32) mmol/L Anion Gap (3-11) BUN (7-18) mg/dl Creatinine (0.6-1.2) mg/dl Est Cr Clr Drug Dosing ml/min Est GFR ( Amer) Est GFR (Non-Af Amer) BUN/Creatinine Ratio (10-20) Glucose (70-99) mg/dl POC Glucose 298 H (70-99) Estimat Average Glucose mg/dl Hemoglobin A1c (4.5-5.6) % Calcium (8.5-10.1) mg/dl Phosphorus (2.5-4.9) mg/dl Magnesium (1.8-2.4) mg/dl Total Bilirubin (0.2-1) mg/dl AST (15-37) U/L ALT (12-78) U/L Alkaline Phosphatase (45-117) U/L Total Protein (6.4-8.2) gm/dl Albumin (3.4-5.0) gm/dl Globulin (2.5-4.0) gm/dl Albumin/Globulin Ratio (0.9-2) Beta-Hydroxybutyric Acd (0.2-2.81) mg/dl Urine Color Urine Appearance (Clear) Urine pH (4.5-7.5) Ur Specific [place] (1.000-1.030) Urine Protein (Negative) Urine Glucose (UA) (Negative) Urine Ketones (Negative) Urine Blood (Negative) Urine Nitrite (Negative) Urine Bilirubin (Negative) Urine Urobilinogen (Negative) Ur Leukocyte Esterase (Negative)
[2019-01-06] MEDS: HYDROmorphone HCL 2 MG TAB PO SCH ×2 (12:38→17:56)
[2019-01-06] MEDS: GABAPENTIN 600 MG TAB PO SCH ×2 (12:39→20:55)
[2019-01-06] MEDS ORDERED: AZITHROMYCIN 250 MG TAB PO SCH (13:00)
[2019-01-06 13:13] LABS: BUN Creatinine Ratio 5.4 (10-20); Calcium 7.6 mg/dl (8.5-10.1); Creatinine Clr Calc Pharmacy 92.3 ml/min; Est GFR (Non-African American) 108.7; Magnesium 2.6 mg/dl (1.8-2.4); Phosphorus 1.8 mg/dl (2.5-4.9); Potassium 4.2 mmol/L (3.5-5.1)
--- NOTE | 2019-01-06 13:45 | Pharmacy Report ---
Glycemic Control Consultation - Date of Service January 06, 2019 - Scope Scope: Glycemic Pharmacist consulted by ANGEL Delgadillo on 01/05 for glycemic control and to write orders per [facility] inpatient glycemic control protocol - Objective Weight: 53.6 kg Accuchecks BSG (last 24hrs): 01/05/19 01/05/19 01/05/19 16:01 16:50 19:12 Glucose 319 H POC Glucose 298 H 307 H 01/05/19 01/05/19 01/05/19 20:33 20:40 21:51 Glucose 176 H POC Glucose 189 H 151 H 01/05/19 01/05/19 01/05/19 23:06 23:21 23:41 Glucose POC Glucose 102 H 96 158 H 01/06/19 01/06/19 01/06/19 00:09 00:11 00:58 Glucose 151 H POC Glucose 153 H 136 H 01/06/19 01/06/19 01/06/19 02:04 02:19 02:38 Glucose POC Glucose 103 H 93 147 H 01/06/19 01/06/19 01/06/19 02:58 03:56 04:00 Glucose 142 H POC Glucose 151 H 150 H 01/06/19 01/06/19 01/06/19 04:56 06:02 07:00 Glucose POC Glucose 186 H 247 H 244 H 01/06/19 01/06/19 01/06/19 08:01 08:45 09:04 Glucose 245 H POC Glucose 224 H 224 H 01/06/19 01/06/19 01/06/19 10:03 11:12 11:59 Glucose POC Glucose 264 H 218 H 193 H 01/06/19 01/06/19 12:23 13:01 Glucose 227 H POC Glucose 224 H Laboratory Data (last 24hrs): 01/05/19 01/05/19 01/05/19 16:50 18:06 20:33 Potassium Cancelled 3.8 Carbon Dioxide 20 L 17 L Anion Gap 10.0 13.0 H Creatinine 0.68 0.87 Est Cr Clr Drug Dosing 88.1 68.8 Beta-Hydroxybutyric Acd Cancelled 01/06/19 01/06/19 01/06/19 00:11 03:56 08:45 Potassium 3.8 3.8 3.4 L Carbon Dioxide 25 25 23 Anion Gap 5.0 4.0 8.0 Creatinine 0.63 0.60 0.57 L Est Cr Clr Drug Dosing 95.1 100.0 105.3 Beta-Hydroxybutyric Acd 01/06/19 12:23 Potassium 4.2 D Carbon Dioxide 26 Anion Gap 6.0 Creatinine 0.65 Est Cr Clr Drug Dosing 92.3 Beta-Hydroxybutyric Acd HbA1c: Hemoglobin A1c 11.3 % (4.5-5.6) H 01/06/19 03:56 - Recent Pertinent Medications Outpatient Anti-diabetic Regimen: * Novolog q4h with a CR of 10 and CF of 40 * Patient reportedly had rashes with both Lantus and Tresiba in the past * A1c = 11.3 % 01/06/19 The patient is currently receiving: * An insulin drip at ~1 unit/hr and also received 5 units of Lantus last evening Risk Factors for Insulin Resistance: * Infection: Zithromax + Rocephin for pneumonia * IVF: D51/2NS + 20 K @ 100 cc/hr * Diet: Full liquid - Assessment & Plan Assessment & Plan: ASSESSMENT: * Ms. Sandoval is a type 1 diabetic that was transferred here from [facility] yesterday for DKA. She has a long standing history of poorly controlled diabetes, with current A1c well above goal. She had trialed Lantus and Tresiba in the past but reports these both gave her rashes (these were not listed as allergies in [employer] and this was not known until I spoke w/ the patient's late this morning). She has attempted to control her BSGs with just Novolog but it is clearly not working. * She was initiated on an insulin drip on admission for DKA, with improvement in labs and BSGs this morning. I spoke with Dr. Bustamante to notify her I was going to transition the patient off the insulin drip. Insulin drip rates were ~ 1 unit/hr with BSGs ~250 and dextrose IVFs on board. I was estimating that ~ 1.5 units/hr would be her requirements, which equates to 36 units of insulin per day. Since she was receiving dextrose IVFs and had breakfast this AM, 1/2 of this would be her basal requirements. Will start w/ this and provide additional tonight if necessary; however, this is already fairly aggressive based upon her weight. Anticipate requirements will decrease over the next few days as basal insulin reaches steady state. PLAN FOR INPATIENT GLYCEMIC CONTROL: * Transition off of insulin drip, stopping 6 hours after Lantus dose, or sooner if directed by insulin calculator * Basal insulin Note: patient received 2 doses of Lantus prior to us having knowledge of the Lantus allergy. Dr. Bustamante aware. No problems thus far. If patient tolerates, will continue. If patient does not tolerate, can consider switching to Levemir or NPH. * Lantus 20 units x 1 now * Additional dose tonight if BSGs remain elevated: * 5 units if BSG 180-250 * 10 units if BSG > 250 * Bolus insulin * NovoLog per scale ACHS + 0200 check * Goal Range: Low 110 mg/dL - High 140 mg/dL * Correction Factor: 35 mg/dL/unit * Nutritional / Prandial insulin per carb ratio of 1 unit per 10 grams CHO consumed * Please note that the plan above was derived based on current level of insulin resistance and hospital stress. These recommendations are appropriate for inpatient admission only. Plan of care upon discharge will need to be reassessed to avoid potential outpatient hypo/hyperglycemia. Thank you.
[2019-01-06 13:52] LABS: Appearance Urine Cloudy (Clear); Bacteria Urine Automated Negative (Negative); Bilirubin Urine Negative (Negative); Color Urine Yellow; Epithelial Cell Urine Auto >30 /lpf (0-5); Glucose Urine UA 3+ (Negative); Ketones Urine 1+ (Negative); Leukocyte Esterase Urine Negative (Negative); Nitrite Urine Negative (Negative); Protein Urine Negative (Negative); Specific Gravity Urine 1.022 (1.000-1.030); Urobilinogen Urine Negative (Negative); WBC Urine Automated >30 /hpf (0-5)
[2019-01-06] MEDS ORDERED: DC IV INSULIN INFUSION 1 EA DEVI ONE (15:00)
[2019-01-06] MEDS ORDERED: AMITRIPTYLINE HCL 50 MG TAB PO SCH (21:00)
[2019-01-07] MEDS: HYDROmorphone HCL 2 MG TAB PO SCH ×2 (00:07→05:47)
[2019-01-07] MEDS ORDERED: INSULIN ASPART 100 UNITS/ML 3 ML PEN SC ONE (02:00)
[2019-01-07] MEDS: ENOXAPARIN INJ 40 MG/0.4 ML SYR SQ SCH (05:48)
[2019-01-07 06:50] LABS: Hematocrit (blood only) 34.5 % (37-47); Hemoglobin 11.5 g/dL (12.0-16.0); Mean Corpuscular Hgb Conc 33.3 g/dL (32-36); Mean Corpuscular Volume 96.6 fL (80-100); Mean Platelet Volume 10.8 fL (7.4-10.4); Platelet Count 173 K/uL (130-400); RDW Coefficient of Variation 13.7 % (11.5-14.5); RDW Standard Deviation 48.3 fL (36.4-46.3); Red Blood Count 3.57 M/uL (4.2-5.4); White Blood Count 7.85 K/uL (4.8-10.8)
[2019-01-07 07:21] LABS: Albumin Level 2.1 gm/dl (3.4-5.0); BUN Creatinine Ratio 15.9 (10-20); Calcium 7.4 mg/dl (8.5-10.1); Creatinine Clr Calc Pharmacy 117.7 ml/min; Est GFR (African American) 136.5; Est GFR (Non-African American) 117.8; Potassium 3.7 mmol/L (3.5-5.1)
[2019-01-07 07:39] LABS: Albumin Globulin Ratio 0.8 (0.9-2); Bilirubin,Total 0.4 mg/dl (0.2-1); Globulin 2.8 gm/dl (2.5-4.0); Phosphorus 2.8 mg/dl (2.5-4.9); Total Protein 4.9 gm/dl (6.4-8.2)
[2019-01-07] MEDS: GABAPENTIN 600 MG TAB PO SCH (08:13)
[2019-01-07] MEDS: CEFDINIR 300 MG CAP PO SCH (08:16)
[2019-01-07] MEDS: INSULIN ASPART 100 UNITS/ML 3 ML PEN SC SCH (08:21)
[2019-01-07] MEDS ORDERED: FLUCONAZOLE 50 MG TAB PO ONE (08:30)
[2019-01-07] MEDS ORDERED: INSULIN GLARGINE SOLOSTAR 100 UNITS/ML 3 ML PEN SC SCH ×2 (09:00)
[2019-01-07] MEDS ORDERED: TIZANIDINE HCL 4 MG TABLET PO SCH (09:00)
--- NOTE | 2019-01-07 09:42 | Pharmacy Report ---
Glycemic Control Progress Note - Date of Service January 07, 2019 - Scope Glycemic Pharmacist consulted for glycemic control to write orders per [facility] inpatient glycemic control protocol. - Objective Accuchecks BSG(last 24 hours):: 01/06/19 01/06/19 01/06/19 10:03 11:12 11:59 Glucose POC Glucose 264 H 218 H 193 H 01/06/19 01/06/19 01/06/19 12:23 13:01 14:08 Glucose 227 H POC Glucose 224 H 47 L* 01/06/19 01/06/19 01/06/19 14:10 16:28 20:14 Glucose POC Glucose 157 H 158 H 243 H 01/07/19 01/07/19 01/07/19 01:59 06:30 07:31 Glucose 265 H POC Glucose 165 H 280 H HbA1c:: Hemoglobin A1c 11.3 % (4.5-5.6) H 01/06/19 03:56 - Outpatient Anti-Diabetic Meds Novolog, CR 10, CF 40, Q4H - Assessment & Plan ASSESSMENT: * See progress note from 01/06/19 for more background info, in short: * Pt receiving SQ basal bolus insulin regimen for hyperglycemia secondary to baseline TYPE 1 DM (outpatient regimen on hold), and pneumonia infection * Patient transitioned off of insulin drip yesterday. * BSGs ranging 150 - 280 mg/dl over the past 24hrs * Changes needed to insulin regimen: * AM Fasting BSG = 280 mg/dl. This is above goal range for patient based on inpatient targets and co-morbidities. Therefore Basal insulin needs increased. * Post-prandial BSGs are elevated/BSGs rise throughout the day therefore need to tighten CF/CR OR PLAN FOR INPATIENT GLYCEMIC CONTROL: * Basal insulin --Note: patient received 2 doses of Lantus prior to us having knowledge of the Lantus allergy. Dr. Bustamante aware. No problems thus far. If patient tolerates, will continue. If patient does not tolerate, can consider switching to Levemir or NPH. * INCREASE: Lantus 30 units SQ x1 this AM, then based on scale HS (determine after lunch BSG) * Bolus insulin * NovoLog per scale ACHS or Q6hrs while NPO * Goal Range: Low 110 mg/dL - High 140 mg/dL * TIGHTEN: Correction Factor: 25 mg/dL/unit * TIGHTEN: Nutritional / Prandial insulin per carb ratio of 1 unit per 8 grams CHO consumed * Please note that the plan above was derived based on current level of insulin resistance and hospital stress. These recommendations are appropriate for inpatient admission only. Plan of care upon discharge will need to be reassessed to avoid potential outpatient hypo/hyperglycemia. Thank you.
--- NOTE | 2019-01-07 10:36 | Discharge Summary ---
Date of Service January 07, 2019 Admission HPI Per Admitting Provider This is a 43 yo F with PMHx of chronic pain on opiods, DM I, gastroparesis, peripheral neuropathy, chronic tobacco smoker, HLD, hx of alcohol abuse and hx of eating disorder who presents as a direct transfer from [facility]. Pt was initially admitted to OSH on 01/02/19. The patient reports that her glucose was uncontrollable there, and that she normally see's our physicians and comes to this hospital previously for similar issues so requested transfer. She reports having severe "severe pain all over her body from straining", and states that she has been dry heaving most of the day. She was able to drink juice and some broth this morning and did not vomit afterwards. She is urinating dark urine for several days. A urine culture was nonconfirmatory regarding a UTI. She also notes having a pneumonia which she has been being treated with antibiotics at OSH. Still has complaints of cough with minimal sputum production, but feels pain with coughing. She denies shortness of breath at rest or on exertion. No fever, chills or sweats. Principal Diagnosis DKA, pneumonia Discharge Exam Constitutional WD/WN, vitals as above Eyes PERRL, conjunctivae normal, anicteric sclerae ENMT external ear and nose normal, oropharynx normal Neck trachea midline, no thyromegaly Respiratory normal respiratory effort, lungs clear to auscultation Cardiovascular RRR, no murmur, no edema Gastrointestinal (Abdomen) normal bowel sounds, soft, nontender, no hepatosplenomegaly Musculoskeletal Extremities: extremities normal to inspection; no cyanosis and no clubbing Skin no rashes, warm and dry Neurologic moves all extremities and awake; no focal motor deficits Psychiatric A+Ox3, euthymic affect Discharge Data Allergies Allergy/AdvReac Type Severity Reaction Status Date / Time AZO Standard Allergy Intermediate HIVES Verified 11/11/17 13:40 naproxen Allergy Intermediate HIVES Verified 11/11/17 13:40 phenazopyridine Allergy Intermediate HIVES Verified 11/11/17 13:40 insulin degludec Allergy Rash Verified 01/06/19 11:20 [From Tresiba FlexTouch U-100] insulin glargine Allergy Rash Verified 01/06/19 10:53 [From Lantus U-100 Insulin] nicotine AdvReac Intermediate PATCH = Verified 11/11/17 13:40 SKIN IRRIATION/ITCHINESS-LOCALIZED DERMATITIS varenicline AdvReac Intermediate SEVERE Verified 11/11/17 13:40 DEPRESSION Consultations 01/05/19 16:14 Consult Case Management - Discharge Planning Routine Procedures Performed None Ordered Studies None Hospital Course (1) Nausea and vomiting: This is a 43 yo F with PMHx of chronic pain on opioids, uncontrolled DM I , gastroparesis, peripheral neuropathy, chronic tobacco smoker, HLD, hx of alcohol abuse and hx of eating disorder who presents as a direct transfer from [facility] for DKA and pneumonia. She presented there with intractable nausea/ vomiting, DKA, and sepsis with RICCI and pneumonia. Transferred here as her condition did not seem to be improving Nausea and vomiting resolved now, tolerating diabetic diet doing very well Likely related to DKA or possibly a viral gastroenteritis (2) DKA (diabetic ketoacidosis): VBG here with pH 7.41 upon transfer, no further acidosis, gap remained closed Blood sugars are improved but in the low 200s this morning -Pharmacy glycemic management consult is appreciated -She was transitioned off and insulin drip and onto Lantus 30 units once daily in the morning, NovoLog q. before meals at bedtime with correction factor 40 and carb ratio 1-10 as before-this can be adjusted by her staff educator as an outpatient -Watch for allergic reaction with Lantus-none so far, tolerating we will continue this at home Electrolytes were replaced as needed Has been off IV fluids and doing well Stable for discharge to home (3) Diabetes mellitus type 1: -Severely uncontrolled with hemoglobin A1c of 11.3% She has been on NovoLog every 2 hours at home for many years with the exception of a few brief times where she was on either Lantus or Tresiba-both of these gave her a rash -She follows with endocrinology SONIA Stevenson-we will make her close follow-up appointment -Appreciate diabetic nurse educator evaluation here -Patient agreeable to trying Lantus again as an outpatient (4) Gastroparesis: - Chronic, stable, follows with a specialist in [place] however has not seen provider recently. -Continue dietary plan for gastroparesis -Unsure if she has tried Reglan in the past (5) Diabetic neuropathy: Chronic and severe - Continue gabapentin 900 mg TID, amitriptyline, and p.o. Dilaudid . Follows with pain management here. - Stable. (6) Pneumonia: CT of the abdomen pelvis at outside hospital showed groundglass opacities bibasilar possibly consistent with pneumonitis Chest x-ray personally reviewed by me and the image does not appear to have any pneumonia She previously did admit to productive cough with sputum and fevers at the outside hospital She was vomiting profusely prior to admission secondary to her DKA-could be aspiration pneumonia? Does have crackles bibasilar on examination - Has received ceftriaxone and azithromycin starting on 01/03 -We will continue antibiotics but switch to Omnicef and azithromycin both p.o. to complete a 7-day course-needs 1 more day of azithromycin and 3 more days of Omnicef to complete the course Overall much improved -Blood cultures drawn at outside facility-we will follow-up on these results but no growth to date on blood cultures drawn here (7) Depression: - Continue trazodone for sleep, hydroxyzine for anxiety/sleep. - Stable, but exacerbated by hospital stay. No suicidal or homicidal ideations. - Hx of alcohol abuse and eating disorder - Tox screen on OSH records was negative. (8) Hypomagnesemia: Magnesium very low at 1.4 -Replaced with IV magnesium and now resolved (9) Hematuria: With gross hematuria noted by patient-not witnessed by me Urinalysis here was normal initially, repeat did have contamination with a lot of epis cells as well as WBCs but also had budding yeast -She had a recent vaginal culture performed and was being treated already with fluconazole once weekly as an outpatient with the first dose last week -Gave her 1 dose of fluconazole 150 mg p.o. here and she will continue her once weekly dosing regimen as prescribed by her outpatient provider There does not appear to be bacterial UTI at this time No evidence of kidney stone seen on outside CT scan of the abdomen pelvis, no clinical signs of kidney stone either (10) DVT prophylaxis: - Lovenox subq was provided Disposition-she had no events on telemetry, she can be discharged home Total Time Total Time Spent Total Time Spent (In Minutes): Rater than 30 minutes Total Time Includes: Examination of the Patient, Discharge Planning, Medication Reconciliation and Communication With Other Providers (Pharmacist) Discharge Plan Discharge Items Patient Disposition: Home - Self-Care Reason For Visit: DKA, NAUSEA, VOMITING Discharge Diagnosis: DKA, nausea, vomiting, pneumonia Condition: Good Discharge Goals: Decrease discomfort, Diagnostic testing, Improve disease control, Learn about illness and Therapeutic intervention Activity: Resume your previous activity Lifting: Gradually increase as tolerated Bathing: No limitations Exercise/Sports: Gradually increase as tolerated Driving/Machine Use: No limitations Non-emergency contact: Primary Care Provider and Specialist Call non-emergency contact if: you have any medication questions, your symptoms worsen, your pain is not controlled, your pain is worsening and your pain is unusual for you Follow-up/Referrals: Kai Amador MD [Primary Care Provider] - Diet: Carb Count or DM1 Addtl Provider Instructions: You were admitted with diabetic ketoacidosis and intractable nausea and vomiting , as well as pneumonia and dehydration. He was started on long-acting insulin called Lantus in addition to your NovoLog. You were much improved with insulin and IV fluids, as well as antibiotics for your pneumonia. Please continue them as prescribed. Please follow-up with your staff educator and primary care physician as scheduled for you. Prescriptions: New azithromycin [Zithromax] 250 mg Tablet 250 mg PO DAILY 1 Days Qty: 1 RF: 0 cefdinir 300 mg Capsule 300 mg PO Q12 3 Days Qty: 6 RF: 0 insulin glargine [Lantus Solostar U-100 Insulin] 100 unit/mL (3 mL) Insulin Pen 30 unit SC QAM Qty: 15 RF: 0 Continue gabapentin 600 mg Tablet 900 mg PO TID Qty: 0 RF: 0 promethazine 12.5 mg Tablet 12.5 mg PO Q6H PRN (Reason: Nausea) Qty: 0 RF: 0 trazodone 100 mg Tablet 200 mg PO HS PRN (Reason: Insomnia) Qty: 0 RF: 0 tizanidine 6 mg Capsule 6 mg PO DAILY Qty: 0 RF: 0 plecanatide [Trulance] 3 mg Tablet 3 mg PO DAILY Qty: 0 RF: 0 hydromorphone 2 mg Tablet 6 mg PO Q6H PRN (Reason: Pain) RF: 0 amitriptyline 50 mg tablet 50 mg PO HS RF: 0 ranitidine HCl 150 mg tablet 150 mg PO BID RF: 0 Changed insulin aspart U-100 [Novolog Flexpen U-100 Insulin] 100 unit/mL Insulin Pen 1 units SUBCUT ACHS Qty: 0 RF: 0 Visit Report Forms: Smoking Cessation Stand-Alone Forms: [facility], Opioid Pain Management Discharge Orders: Discharge Order (Routine); Ordered 01/07/19 Ordered By: Rosina Bustamante Admission Data Admit Date/Time: 01/05/19 15:53 Attending Provider: Rosina Bustamante Admit Provider: Reza Milian Primary Care Provider: Kai Amador V. Service: Telemetry Other Pending Studies at Discharge: Yes Studies:: Blood cultures, final urine culture
== END 2019-01-07 11:09 | disposition home or self-care (01) | DRG 637 ==
LOC: 2S 15:53 → SUATTDRO 15:53

== ENCOUNTER 2020-03-15 13:32 | Inpatient (IN) ==
[2020-03-15] MEDS ORDERED: SODIUM CHLORIDE 0.9% 1000ML 1,000 ML IV ONE ×2 (13:46→14:01)
[2020-03-15 14:47] LABS: Appearance Urine Clear (Clear); Bilirubin Urine Negative (Negative); Blood Urine Negative (Negative); Color Urine Yellow; Glucose Urine UA 3+ (Negative); Ketones Urine 4+ (Negative); Leukocyte Esterase Urine Negative (Negative); Nitrite Urine Negative (Negative); Protein Urine Negative (Negative); Specific Gravity Urine 1.033 (1.000-1.030); Urobilinogen Urine Negative (Negative)
[2020-03-15 15:01] LABS: Oxygen Saturation VBG 77.3 %; pH VBG 7.28 (7.36-7.41)
[2020-03-15] MEDS ORDERED: CALCIUM GLUCONATE 10% 1,000 MG in SODIUM CHLORIDE 0.9% 50 ML IV STA (15:02)
[2020-03-15] MEDS ORDERED: GLUCAGON FOR INJ 1 MG VIAL SQ PRN (15:03)
[2020-03-15] MEDS ORDERED: ED DKA INSULIN DRIP ONE (15:03)
[2020-03-15] MEDS ORDERED: GLUCOSE 40% GEL 15 GM TUBE PO PRN (15:03)
[2020-03-15] MEDS ORDERED: DKA GOAL RANGE 150-250 mg/dl ONE ×2 (15:03→18:41)
[2020-03-15] MEDS ORDERED: GLUCOSE 10 TABS/TUBE PO PRN (15:03)
[2020-03-15] MEDS ORDERED: CARBOHYDRATES FOR HYPOGLYCEMIA PO PRN (15:03)
[2020-03-15 15:14] LABS: iSTAT Creatinine 0.5 mg/dl (0.6-1.3); iSTAT Ionized Calcium 1.04 mmol/l (1.12-1.32); iSTAT Potassium 6.4 mmol/L (3.3-5.0)
[2020-03-15] MEDS ORDERED: NovoLIN-R BOLUS FROM BAG IV ONE (15:15)
[2020-03-15] MEDS ORDERED: INSULIN REGULAR 250 UNITS in SODIUM CHLORIDE 0.9% 247.5 ML IV SCH ×2 (15:15→16:45)
--- NOTE | 2020-03-15 15:19 | Emergency Department Note ---
History of Present Illness General Chief complaint: Illness Stated complaint: DKA, VOMITING, CAN'T BREATHE Time Seen by Provider: 03/15/20 13:44 Source: patient, RN notes reviewed and old records reviewed Mode of arrival: ambulatory Limitations: no limitations History of Present Illness Provider complaint: DKA Onset (ago): week(s) 1 Radiation: non-radiation Pain Consistency: + now resolved Maximum Pain Intensity: 8 Current Pain Intensity: 0 Associated symptoms: + denies other symptoms Treatments prior to arrival: other (Insulin) This is a 44-year-old female who presents emergency department over concerns that she is in DKA. The patient reports she has been sick with upper respiratory tract infection and cough that has been ongoing for at least a week. She gave herself insulin at home and has been trying to avoid going into DKA however she feels that she is in DKA now. She is hyperventilating. Home Medications Home Medications Medication Instructions Recorded Confirmed Type Trulance 3 mg PO QAM PRN #0 11/06/17 03/15/20 History albuterol sulfate [ProAir 1 inh INHALATION QID PRN 01/18/19 03/15/20 History RespiClick] pantoprazole [Protonix] 40 mg PO BID 01/18/19 03/15/20 History diclofenac sodium 1 % topical gel 2 gm TOP QID #100 gm 06/21/19 03/15/20 Rx Novolog Flexpen U-100 Insulin 100 See Rx Instructions SUBCUT DAILY 08/26/19 03/15/20 Rx unit/mL (3 mL) subcutaneous #30 ml NS MDD 60 units ibuprofen 600 mg PO Q6H PRN 11/21/19 03/15/20 History crisaborole 2 % topical ointment 1 appln TOP BID 01/24/20 03/15/20 History amitriptyline 50 mg tablet 50 mg PO HS #30 tab 01/26/20 03/15/20 Rx estradiol [Estrace] 1 gm PV 2XWK 03/15/20 03/15/20 History fluconazole [Diflucan] 200 mg PO DAILY 03/15/20 03/15/20 History gabapentin [Neurontin] 900 mg PO TID 03/15/20 03/15/20 History ondansetron HCl [Zofran] 4 mg PO Q6H PRN 03/15/20 03/15/20 History rizatriptan [Maxalt] 10 mg PO .COMPLEX PRN 03/15/20 03/15/20 History tizanidine [Zanaflex] 8 mg PO TID 03/15/20 03/15/20 History tramadol [Ultram] 50 mg PO HS 03/15/20 03/15/20 History Allergies Allergy/AdvReac Type Severity Reaction Status Date / Time AZO Standard Allergy Intermediate HIVES Verified 11/11/17 13:40 insulin glargine Allergy Intermediate Rash Unverified 03/15/20 16:50 [From Lantus U-100 Insulin] naproxen Allergy Intermediate HIVES & SOB Verified 03/15/20 16:50 phenazopyridine Allergy Intermediate HIVES Verified 03/15/20 16:50 insulin degludec Allergy Mild Rash Verified 03/15/20 16:50 [From Tresiba FlexTouch U-100] sumatriptan Allergy Nausea, Verified 03/15/20 16:50 vomitting, jaw pain, worsening BARNARD nicotine AdvReac Intermediate PATCH = Verified 03/15/20 16:50 SKIN IRRIATION/ITCHINESS-LOCALIZED DERMATITIS varenicline AdvReac Intermediate SEVERE Verified 03/15/20 16:50 DEPRESSION escitalopram [From Lexapro] AdvReac Mild depression Verified 03/15/20 16:50 bupropion [From Wellbutrin] AdvReac Unknown decreased Verified 03/15/20 16:50 libido doxepin AdvReac Unknown Unknown Verified 03/15/20 16:50 paroxetine [From Paxil] AdvReac Unknown decreased Verified 03/15/20 16:50 libido sulfamethoxazole AdvReac Unknown Unknown Verified 03/15/20 16:50 [From Bactrim] trimethoprim [From Bactrim] AdvReac Unknown Unknown Verified 03/15/20 16:50 Past Med/Surg History Medical History (Updated 03/15/20 @ 19:34 by Malcolm Suarez MD) Abdominal pain Abdominal pain Anxiety Asthma over a year since last use of inhaler Degenerative disc disease Depression Diabetes mellitus type 1 uncontrolled. sliding scale & carb counting Diabetic keto-acidosis (Acute) Gastroparesis GERD (gastroesophageal reflux disease) Ketoacidosis frequently but last hospitalized Dec 2018 BSG OVER 900 Migraine without aura, not intractable, without status migrainosus Ovarian cyst HX OF Pancreatitis ~2016 Peripheral neuropathy bilateral legs and feet Pneumonia Dec 2018 Post traumatic stress disorder Rectal bleeding Seizure Last seizure ~2012. "pass out" type but not convulsions. no problems since. Steatorrhea Surgical History History of colonoscopy History of esophagogastroduodenoscopy (EGD) History of hemorrhoidectomy History of tonsillectomy History of tooth extraction S/P laparoscopic assisted vaginal hysterectomy (LAVH) Surgical history of tubal ligation clips Family History Mother Family history of diabetes mellitus Diabetes Unknown Diabetes Breast cancer Father Alcohol abuse Uncle Alcohol abuse Grandmother Ovarian cancer Denies family history of Colon cancer Prostate cancer Myocardial infarction Colorectal cancer Social History Preferred Language: Romanian Communication Ability: Effective Visual Impairment: No Limitations Hearing Ability: Normal Inspector Quality Assurance Required: No Beliefs That Will Affect Care: None marital status: Current Living Situation: Spouse current occupational status: disabled Feels Safe at Home: Yes Smoking Status: Current every day smoker Tobacco Type: cigarettes ; Age Started Using Tobacco: 16 ; packs per day: 1 ; Cigarettes Per Day: 20 CIG DAILY ; Second Hand Exposure: No ; Hx Alcohol Use: No Hx Substance Use: Yes (hx medical marijuana use-has not used since february 2019) substance use type: marijuana Substance Use Type Other:: STOPPED MEDICAL MARIJUANA IN AUGUST Childhood Exposure to Second-Hand Smoke: Yes (grandmother) Dental Care, Regularly: Yes Physical Activity Frequency: 3-4 Times per Week Seatbelt Use: always Sunscreen Use: Yes Review of Systems A total of 10 systems reviewed and were otherwise negative Physical Exam Vital Signs Vital Signs - 24 hr 03/15/20 13:35 03/15/20 14:08 03/15/20 14:30 Temperature 36.3 C L Temperature Source Oral Pulse Rate 131 H 135 H 123 H Pulse Rate [Apical] 125 H Pulse Rate from SpO2 Sensor 124 H Respiratory Rate 22 16 20 Respiratory Effort / Characteristics Non-Labored Spontaneous Blood Pressure 163/101 H Blood Pressure [Left Arm] 155/104 H Blood Pressure Mean 121 Blood Pressure Mean [Left Arm] 121 Blood Pressure Position Sitting Pulse Oximetry 99 99 Oxygen Delivery Method Room Air Room Air Sepsis Recent Fever Within 48 Hours No Sepsis Action Taken by Nursing No Action Required 03/15/20 15:40 03/15/20 15:42 03/15/20 16:00 Temperature Temperature Source Pulse Rate 137 H 138 H 136 H Pulse Rate [Apical] 138 H Pulse Rate from SpO2 Sensor 137 H 141 H 137 H Respiratory Rate 27 H 22 27 H Respiratory Effort / Characteristics Blood Pressure 150/94 H 146/87 H Blood Pressure [Left Arm] 150/94 H Blood Pressure Mean 116 104 Blood Pressure Mean [Left Arm] 112 Blood Pressure Position Pulse Oximetry 99 97 97 Oxygen Delivery Method Room Air Sepsis Recent Fever Within 48 Hours Sepsis Action Taken by Nursing 03/15/20 16:30 Temperature Temperature Source Pulse Rate 139 H Pulse Rate [Apical] Pulse Rate from SpO2 Sensor 138 H Respiratory Rate 25 H Respiratory Effort / Characteristics Blood Pressure 164/102 H Blood Pressure [Left Arm] Blood Pressure Mean 134 Blood Pressure Mean [Left Arm] Blood Pressure Position Pulse Oximetry 97 Oxygen Delivery Method Sepsis Recent Fever Within 48 Hours Sepsis Action Taken by Nursing GENERAL: Patient is a healthy-appearing well-nourished female, hyperventilating, sweet smeel on breath HEAD: Normocephalic atraumatic EYES: Ocular movements intact pupils equal and react to light OROPHARYNX mucous membranes are moist no exudates present no erythema or edema present NECK: Supple no nuchal rigidity CHEST: Good equal expansion LUNGS: Clear and equal to auscultation CARDIAC: Normal S1 and S2 ABDOMEN: Soft nontender no guarding BACK: No CVA tenderness EXTREMITIES: No pain upon palpation normal muscle strength in all groups no clubbing cyanosis or edema NEURO: Patient is following commands is answering questions appropriately. Alert and oriented x3 Cranial Nerves 2-12 grossly intact Course Administered Medications Insulin Human Regular 250 (units/ Sodium Chloride) 250 mls @ 4.6 mls/hr IV .Q24H [facility]; Protocol Stop: 04/14/20 15:14 Last Titration: 03/15/20 19:07 Dose: 4.6 units/hr, 4.6 mls/hr Documented by: [id number] Cosigned by: [id number] Titration: 03/15/20 18:37 Dose: 4.6 units/hr, 4.6 mls/hr Documented by: [id number] Cosigned by: [id number] Admin: 03/15/20 16:04 Dose: 5.8 units/hr, 5.8 mls/hr Documented by: [id number] Cosigned by: [id number] Discontinued Medications Albuterol (Ventolin Hfa) 6 puffs INH NOW ONE Stop: 03/15/20 15:03 Last Admin: 03/15/20 16:13 Dose: Not Given Documented by: [id number] Hydromorphone HCl (Dilaudid) 0.5 mg IV Q15M PRN PRN Reason: Pain Stop: 03/29/20 15:26 Last Admin: 03/15/20 16:26 Dose: 0.5 mg Documented by: [id number] Admin: 03/15/20 15:37 Dose: 0.5 mg Documented by: [id number] Sodium Chloride (Nss 1000ml) 1,000 mls @ 999 mls/hr IV .Q1H1M ONE Stop: 03/15/20 14:46 Last Infusion: 03/15/20 16:20 Dose: 0 mls/hr Documented by: [id number] Admin: 03/15/20 15:23 Dose: 999 mls/hr Documented by: [id number] Sodium Chloride (Nss 1000ml) 1,000 mls @ 999 mls/hr IV .Q1H1M ONE Stop: 03/15/20 15:01 Last Infusion: 03/15/20 17:07 Dose: 0 mls/hr Documented by: [id number] Admin: 03/15/20 15:23 Dose: 999 mls/hr Documented by: [id number] Calcium Gluconate 1,000 mg/ (Sodium Chloride) 60 mls @ 240 mls/hr IV NOW STA Stop: 03/15/20 15:16 Last Infusion: 03/15/20 15:56 Dose: 0 mls/hr Documented by: [id number] Admin: 03/15/20 15:23 Dose: 240 mls/hr Documented by: [id number] Acetaminophen (Ofirmev) 1,000 mg in 100 mls @ 400 mls/hr IV NOW STA Stop: 03/15/20 15:41 Last Infusion: 03/15/20 15:56 Dose: 0 mls/hr Documented by: [id number] Admin: 03/15/20 15:37 Dose: 400 mls/hr Documented by: [id number] Sodium Chloride (Nss) 500 mls @ 999 mls/hr IV .Q31M ONE Stop: 03/15/20 18:30 Last Infusion: 03/15/20 19:26 Dose: 0 mls/hr Documented by: [id number] Admin: 03/15/20 18:36 Dose: 999 mls/hr Documented by: [id number] Insulin Aspart (Novolog Flexpen) 0 units SC ACHS DREA Stop: 04/14/20 16:29 Last Admin: 03/15/20 18:37 Dose: Not Given Documented by: [id number] Cosigned by: [id number] Insulin Human Regular (Novolin R Bolus From Bag) 5.8 units IV ONE ONE Stop: 03/15/20 15:16 Last Admin: 03/15/20 16:04 Dose: 5.8 units Documented by: [id number] Cosigned by: [id number] Miscellaneous (Insulin Protocol Dka Goal Range) 1 ea N/A ONE ONE Stop: 03/15/20 15:04 Last Admin: 03/15/20 18:37 Dose: 1 ea Documented by: [id number] Nicotine (Nicoderm Cq) 21 mg TD NOW STA Stop: 03/15/20 15:28 Last Admin: 03/15/20 16:03 Dose: Not Given Documented by: [id number] Ondansetron HCl (Zofran) 4 mg IV NOW STA Stop: 03/15/20 15:28 Last Admin: 03/15/20 15:37 Dose: 4 mg Documented by: [id number] Critical Care Time I have personally spent greater than 90 minutes of critical care time in the direct management of this patient. This includes bedside care, interpretation of diagnostic studies, and testing, discussion with consultants, patient, and family members, and other required patient management activities. This 90 minutes is in excess of all separately billable procedures. Medical Decision Making Differential Diagnosis Infection, dehydration, metabolic abnormality, hypo/hyperglycemia, electrolyte disturbance, anemia, hypoxia, cardiac sources, intracerebral event, toxicologic, neurologic, as well as other pathologies. Medical Records Attestation: I reviewed the patient's medical records. Home Medications Current Medication List: was personally reviewed by me Laboratory Data Attestation: I reviewed the patient's lab results. Result diagrams: 03/15/20 15:14 03/15/20 16:30 Lab Results 03/15/20 03/15/20 03/15/20 Range/Units 13:48 14:15 14:15 WBC (4.8-10.8) K/uL RBC (4.2-5.4) M/uL Hgb (12.0-16.0) g/dL POC Hgb (12.0-16.0) g/dl Hct (37-47) % POC Hct (37-47) % MCV (80-100) fL MCH (25-34) pg MCHC (32-36) g/dL RDW Std Deviation (36.4-46.3) fL RDW Coeff of Korey (11.5-14.5) % Plt Count (130-400) K/uL MPV (7.4-10.4) fL Immature Gran % (Auto) % Neut % (Auto) % Lymph % (Auto) % [place] % (Auto) % Eos % (Auto) % Baso % (Auto) % Immature Gran # (Auto) (0.00-0.02) K/uL Neut # (Auto) (1.4-6.5) K/uL Lymph # (Auto) (1.2-3.4) K/uL [place] # (Auto) (0.11-0.59) K/uL Eos # (Auto) (0-0.5) K/uL Baso # (Auto) (0-0.2) K/uL ESR (0-21) mm/hr VBG pH (7.36-7.41) VBG pCO2 (38-50) mmHg VBG pO2 mmHg VBG HCO3 mmol/L VBG O2 Saturation % VBG Base Excess mEq/L Barometric Pressure mm/Hg POC Sodium (135-144) mmol/L Sodium (136-145) mmol/L POC Potassium (3.3-5.0) mmol/L Potassium (3.5-5.1) mmol/L POC Chloride (101-112) mmol/L Chloride (98-107) mmol/L Carbon Dioxide (21-32) mmol/L POC Total CO2 (24-31) mEq/l Anion Gap (3-11) POC Anion Gap (16-25) mmol/L POC BUN (7-18) mg/dl BUN (7-18) mg/dl Creatinine (0.6-1.2) mg/dl POC Creatinine (0.6-1.3) mg/dl Est Cr Clr Drug Dosing ml/min Est GFR ( Amer) Est GFR (Non-Af Amer) BUN/Creatinine Ratio (10-20) Glucose (70-99) mg/dl POC Glucose 558 H* (70-99) mg/dl POC Glucose (other) (70-99) mg/dl Calcium (8.5-10.1) mg/dl POC Ioniz Calcium David (1.12-1.32) mmol/l Phosphorus (2.5-4.9) mg/dl Magnesium (1.8-2.4) mg/dl Ferritin (8-388) ng/ml Total Bilirubin (0.2-1) mg/dl AST (15-37) U/L ALT (12-78) U/L Alkaline Phosphatase (45-117) U/L C-Reactive Protein (0-0.29) mg/dl Total Protein (6.4-8.2) gm/dl Albumin (3.4-5.0) gm/dl Globulin (2.5-4.0) gm/dl Albumin/Globulin Ratio (0.9-2) Lipase (73-393) U/L Beta-Hydroxybutyric Acd (0.2-2.81) mg/dl HCG, Qual (Negative) Urine Color Yellow Urine Appearance Clear (Clear) Urine pH 5.0 (4.5-7.5) Ur Specific [place] 1.033 H (1.000-1.030) Urine Protein Negative (Negative) Urine Glucose (UA) 3+ H (Negative) Urine Ketones 4+ H (Negative) Urine Blood Negative (Negative) Urine Nitrite Negative (Negative) Urine Bilirubin Negative (Negative) Urine Urobilinogen Negative (Negative) Ur Leukocyte Esterase Negative (Negative) COVID-19 PCR (Negative) Influenza Type A (PCR) (Neg) Influenza Type B (PCR) (Neg) SARS-CoV-2 RNA (RT-PCR) Cancelled 03/15/20 03/15/20 03/15/20 Range/Units 14:15 14:15 14:47 WBC (4.8-10.8) K/uL RBC (4.2-5.4) M/uL Hgb (12.0-16.0) g/dL POC Hgb (12.0-16.0) g/dl Hct (37-47) % POC Hct (37-47) % MCV (80-100) fL MCH (25-34) pg MCHC (32-36) g/dL RDW Std Deviation (36.4-46.3) fL RDW Coeff of Korey (11.5-14.5) % Plt Count (130-400) K/uL MPV (7.4-10.4) fL Immature Gran % (Auto) % Neut % (Auto) % Lymph % (Auto) % [place] % (Auto) % Eos % (Auto) % Baso % (Auto) % Immature Gran # (Auto) (0.00-0.02) K/uL Neut # (Auto) (1.4-6.5) K/uL Lymph # (Auto) (1.2-3.4) K/uL [place] # (Auto) (0.11-0.59) K/uL Eos # (Auto) (0-0.5) K/uL Baso # (Auto) (0-0.2) K/uL ESR (0-21) mm/hr VBG pH 7.28 L (7.36-7.41) VBG pCO2 28 L (38-50) mmHg VBG pO2 47 mmHg VBG HCO3 13 mmol/L VBG O2 Saturation 77.3 % VBG Base Excess -12.0 mEq/L Barometric Pressure 728.9 mm/Hg POC Sodium (135-144) mmol/L Sodium (136-145) mmol/L POC Potassium (3.3-5.0) mmol/L Potassium (3.5-5.1) mmol/L POC Chloride (101-112) mmol/L Chloride (98-107) mmol/L Carbon Dioxide (21-32) mmol/L POC Total CO2 (24-31) mEq/l Anion Gap (3-11) POC Anion Gap (16-25) mmol/L POC BUN (7-18) mg/dl BUN (7-18) mg/dl Creatinine (0.6-1.2) mg/dl POC Creatinine (0.6-1.3) mg/dl Est Cr Clr Drug Dosing ml/min Est GFR ( Amer) Est GFR (Non-Af Amer) BUN/Creatinine Ratio (10-20) Glucose (70-99) mg/dl POC Glucose (70-99) mg/dl POC Glucose (other) (70-99) mg/dl Calcium (8.5-10.1) mg/dl POC Ioniz Calcium David (1.12-1.32) mmol/l Phosphorus (2.5-4.9) mg/dl Magnesium (1.8-2.4) mg/dl Ferritin (8-388) ng/ml Total Bilirubin (0.2-1) mg/dl AST (15-37) U/L ALT (12-78) U/L Alkaline Phosphatase (45-117) U/L C-Reactive Protein (0-0.29) mg/dl Total Protein (6.4-8.2) gm/dl Albumin (3.4-5.0) gm/dl Globulin (2.5-4.0) gm/dl Albumin/Globulin Ratio (0.9-2) Lipase (73-393) U/L Beta-Hydroxybutyric Acd (0.2-2.81) mg/dl HCG, Qual (Negative) Urine Color Urine Appearance (Clear) Urine pH (4.5-7.5) Ur Specific [place] (1.000-1.030) Urine Protein (Negative) Urine Glucose (UA) (Negative) Urine Ketones (Negative) Urine Blood (Negative) Urine Nitrite (Negative) Urine Bilirubin (Negative) Urine Urobilinogen (Negative) Ur Leukocyte Esterase (Negative) COVID-19 PCR NEGATIVE (Negative) Influenza Type A (PCR) Neg for Influ A (Neg) Influenza Type B (PCR) Neg for Influ B (Neg) SARS-CoV-2 RNA (RT-PCR) 03/15/20 03/15/20 03/15/20 Range/Units 15:00 15:14 15:14 WBC 13.66 H (4.8-10.8) K/uL RBC 4.97 (4.2-5.4) M/uL Hgb 17.0 H (12.0-16.0) g/dL POC Hgb 19.0 H (12.0-16.0) g/dl Hct 51.7 H (37-47) % POC Hct 56 H (37-47) % MCV 104.0 H (80-100) fL MCH 34.2 H (25-34) pg MCHC 32.9 (32-36) g/dL RDW Std Deviation 48.8 H (36.4-46.3) fL RDW Coeff of Korey 12.8 (11.5-14.5) % Plt Count 270 (130-400) K/uL MPV 12.2 H (7.4-10.4) fL Immature Gran % (Auto) 0.7 % Neut % (Auto) 67.5 % Lymph % (Auto) 23.1 % [place] % (Auto) 7.5 % Eos % (Auto) 0.8 % Baso % (Auto) 0.4 % Immature Gran # (Auto) 0.09 H (0.00-0.02) K/uL Neut # (Auto) 9.22 H (1.4-6.5) K/uL Lymph # (Auto) 3.16 (1.2-3.4) K/uL [place] # (Auto) 1.03 H (0.11-0.59) K/uL Eos # (Auto) 0.11 (0-0.5) K/uL Baso # (Auto) 0.05 (0-0.2) K/uL ESR 1 (0-21) mm/hr VBG pH (7.36-7.41) VBG pCO2 (38-50) mmHg VBG pO2 mmHg VBG HCO3 mmol/L VBG O2 Saturation % VBG Base Excess mEq/L Barometric Pressure mm/Hg POC Sodium 130 L (135-144) mmol/L Sodium (136-145) mmol/L POC Potassium 6.4 H* (3.3-5.0) mmol/L Potassium (3.5-5.1) mmol/L POC Chloride 102 (101-112) mmol/L Chloride (98-107) mmol/L Carbon Dioxide (21-32) mmol/L POC Total CO2 13 L (24-31) mEq/l Anion Gap (3-11) POC Anion Gap 23.0 (16-25) mmol/L POC BUN 16 (7-18) mg/dl BUN (7-18) mg/dl Creatinine (0.6-1.2) mg/dl POC Creatinine 0.5 L (0.6-1.3) mg/dl Est Cr Clr Drug Dosing ml/min Est GFR ( Amer) Est GFR (Non-Af Amer) BUN/Creatinine Ratio (10-20) Glucose (70-99) mg/dl POC Glucose (70-99) mg/dl POC Glucose (other) 615 H* (70-99) mg/dl Calcium (8.5-10.1) mg/dl POC Ioniz Calcium David 1.04 L (1.12-1.32) mmol/l Phosphorus (2.5-4.9) mg/dl Magnesium (1.8-2.4) mg/dl Ferritin (8-388) ng/ml Total Bilirubin (0.2-1) mg/dl AST (15-37) U/L ALT (12-78) U/L Alkaline Phosphatase (45-117) U/L C-Reactive Protein (0-0.29) mg/dl Total Protein (6.4-8.2) gm/dl Albumin (3.4-5.0) gm/dl Globulin (2.5-4.0) gm/dl Albumin/Globulin Ratio (0.9-2) Lipase (73-393) U/L Beta-Hydroxybutyric Acd (0.2-2.81) mg/dl HCG, Qual (Negative) Urine Color Urine Appearance (Clear) Urine pH (4.5-7.5) Ur Specific [place] (1.000-1.030) Urine Protein (Negative) Urine Glucose (UA) (Negative) Urine Ketones (Negative) Urine Blood (Negative) Urine Nitrite (Negative) Urine Bilirubin (Negative) Urine Urobilinogen (Negative) Ur Leukocyte Esterase (Negative) COVID-19 PCR (Negative) Influenza Type A (PCR) (Neg) Influenza Type B (PCR) (Neg) SARS-CoV-2 RNA (RT-PCR) 03/15/20 03/15/20 03/15/20 Range/Units 15:14 15:14 16:07 WBC (4.8-10.8) K/uL RBC (4.2-5.4) M/uL Hgb (12.0-16.0) g/dL POC Hgb (12.0-16.0) g/dl Hct (37-47) % POC Hct (37-47) % MCV (80-100) fL MCH (25-34) pg MCHC (32-36) g/dL RDW Std Deviation (36.4-46.3) fL RDW Coeff of Korey (11.5-14.5) % Plt Count (130-400) K/uL MPV (7.4-10.4) fL Immature Gran % (Auto) % Neut % (Auto) % Lymph % (Auto) % [place] % (Auto) % Eos % (Auto) % Baso % (Auto) % Immature Gran # (Auto) (0.00-0.02) K/uL Neut # (Auto) (1.4-6.5) K/uL Lymph # (Auto) (1.2-3.4) K/uL [place] # (Auto) (0.11-0.59) K/uL Eos # (Auto) (0-0.5) K/uL Baso # (Auto) (0-0.2) K/uL ESR (0-21) mm/hr VBG pH (7.36-7.41) VBG pCO2 (38-50) mmHg VBG pO2 mmHg VBG HCO3 mmol/L VBG O2 Saturation % VBG Base Excess mEq/L Barometric Pressure mm/Hg POC Sodium (135-144) mmol/L Sodium 130 L (136-145) mmol/L POC Potassium (3.3-5.0) mmol/L Potassium 4.7 (3.5-5.1) mmol/L POC Chloride (101-112) mmol/L Chloride 99 (98-107) mmol/L Carbon Dioxide 13 L (21-32) mmol/L POC Total CO2 (24-31) mEq/l Anion Gap 18.0 H (3-11) POC Anion Gap (16-25) mmol/L POC BUN (7-18) mg/dl BUN 12 (7-18) mg/dl Creatinine 0.98 (0.6-1.2) mg/dl POC Creatinine (0.6-1.3) mg/dl Est Cr Clr Drug Dosing 63.3 ml/min Est GFR ( Amer) 81.3 Est GFR (Non-Af Amer) 70.2 BUN/Creatinine Ratio 12.6 (10-20) Glucose (70-99) mg/dl POC Glucose 594 H* (70-99) mg/dl POC Glucose (other) (70-99) mg/dl Calcium 9.6 (8.5-10.1) mg/dl POC Ioniz Calcium David (1.12-1.32) mmol/l Phosphorus 3.3 (2.5-4.9) mg/dl Magnesium 1.9 (1.8-2.4) mg/dl Ferritin 155.2 (8-388) ng/ml Total Bilirubin 0.8 (0.2-1) mg/dl AST 19 (15-37) U/L ALT 28 (12-78) U/L Alkaline Phosphatase 151 H (45-117) U/L C-Reactive Protein (0-0.29) mg/dl Total Protein 7.8 (6.4-8.2) gm/dl Albumin 3.8 (3.4-5.0) gm/dl Globulin 4.0 (2.5-4.0) gm/dl Albumin/Globulin Ratio 1.0 (0.9-2) Lipase 40 L (73-393) U/L Beta-Hydroxybutyric Acd (0.2-2.81) mg/dl HCG, Qual Negative (Negative) Urine Color Urine Appearance (Clear) Urine pH (4.5-7.5) Ur Specific [place] (1.000-1.030) Urine Protein (Negative) Urine Glucose (UA) (Negative) Urine Ketones (Negative) Urine Blood (Negative) Urine Nitrite (Negative) Urine Bilirubin (Negative) Urine Urobilinogen (Negative) Ur Leukocyte Esterase (Negative) COVID-19 PCR (Negative) Influenza Type A (PCR) (Neg) Influenza Type B (PCR) (Neg) SARS-CoV-2 RNA (RT-PCR) 03/15/20 03/15/20 Range/Units 16:30 16:30 WBC (4.8-10.8) K/uL RBC (4.2-5.4) M/uL Hgb (12.0-16.0) g/dL POC Hgb (12.0-16.0) g/dl Hct (37-47) % POC Hct (37-47) % MCV (80-100) fL MCH (25-34) pg MCHC (32-36) g/dL RDW Std Deviation (36.4-46.3) fL RDW Coeff of Korey (11.5-14.5) % Plt Count (130-400) K/uL MPV (7.4-10.4) fL Immature Gran % (Auto) % Neut % (Auto) % Lymph % (Auto) % [place] % (Auto) % Eos % (Auto) % Baso % (Auto) % Immature Gran # (Auto) (0.00-0.02) K/uL Neut # (Auto) (1.4-6.5) K/uL Lymph # (Auto) (1.2-3.4) K/uL [place] # (Auto) (0.11-0.59) K/uL Eos # (Auto) (0-0.5) K/uL Baso # (Auto) (0-0.2) K/uL ESR (0-21) mm/hr VBG pH (7.36-7.41) VBG pCO2 (38-50) mmHg VBG pO2 mmHg VBG HCO3 mmol/L VBG O2 Saturation % VBG Base Excess mEq/L Barometric Pressure mm/Hg POC Sodium (135-144) mmol/L Sodium (136-145) mmol/L POC Potassium (3.3-5.0) mmol/L Potassium (3.5-5.1) mmol/L POC Chloride (101-112) mmol/L Chloride (98-107) mmol/L Carbon Dioxide (21-32) mmol/L POC Total CO2 (24-31) mEq/l Anion Gap (3-11) POC Anion Gap (16-25) mmol/L POC BUN (7-18) mg/dl BUN (7-18) mg/dl Creatinine (0.6-1.2) mg/dl POC Creatinine (0.6-1.3) mg/dl Est Cr Clr Drug Dosing ml/min Est GFR ( Amer) Est GFR (Non-Af Amer) BUN/Creatinine Ratio (10-20) Glucose 604 H* (70-99) mg/dl POC Glucose 526 H* (70-99) mg/dl POC Glucose (other) (70-99) mg/dl Calcium (8.5-10.1) mg/dl POC Ioniz Calcium [place] (1.12-1.32) mmol/l Phosphorus (2.5-4.9) mg/dl Magnesium (1.8-2.4) mg/dl Ferritin (8-388) ng/ml Total Bilirubin (0.2-1) mg/dl AST (15-37) U/L ALT (12-78) U/L Alkaline Phosphatase (45-117) U/L C-Reactive Protein 0.59 H (0-0.29) mg/dl Total Protein (6.4-8.2) gm/dl Albumin (3.4-5.0) gm/dl Globulin (2.5-4.0) gm/dl Albumin/Globulin Ratio (0.9-2) Lipase (73-393) U/L Beta-Hydroxybutyric Acd 95.59 H (0.2-2.81) mg/dl HCG, Qual (Negative) Urine Color Urine Appearance (Clear) Urine pH (4.5-7.5) Ur Specific [place] (1.000-1.030) Urine Protein (Negative) Urine Glucose (UA) (Negative) Urine Ketones (Negative) Urine Blood (Negative) Urine Nitrite (Negative) Urine Bilirubin (Negative) Urine Urobilinogen (Negative) Ur Leukocyte Esterase (Negative) COVID-19 PCR (Negative) Influenza Type A (PCR) (Neg) Influenza Type B (PCR) (Neg) SARS-CoV-2 RNA (RT-PCR) Blood Pressure Blood Pressure Findings: Elevated blood pressure Blood Pressure Disposition: elevated BP felt to be situational MDM Narrative This is a 44-year-old female who presents emergency department complaining of DKA. The patient's blood sugar was found to be 600 and her CO2 was found to be decreased. Based on these findings patient was given a normal saline bolus. Her potassium was found to be grossly elevated therefore she was also given calcium and placed on insulin drip. She was given Tylenol as well as Dilaudid and Zofran for her pain. Repeat examination revealed improvement the patient symptoms. I did discuss the case with the hospitalist service who did agree to admit the patient. Patient is in agreement with the treatment plan Impression & Plan Diabetic keto-acidosis, URI, acute Discharge Plan Visit Data Chief Complaint: Illness Stated Complaint: DKA, VOMITING, CAN'T BREATHE ED Provider: Malcolm Suarez Discharge Problem: Diabetic keto-acidosis, URI, acute Discharge Instructions Interventions: ED Discharge Assessment Last Done: 03/15/20 17:32 Discharge Problem: Diabetic keto-acidosis Qualifiers: Diabetes mellitus type: type 1 Diabetes mellitus complication detail: without coma Qualified Code(s): E10.10 - Type 1 diabetes mellitus with ketoacidosis without coma
[2020-03-15] MEDS: ALBUTEROL HFA 8 GM INHALER INH ONE ×2 (15:24→16:13)
[2020-03-15 15:25] LABS: Influenza A virus by PCR Neg for Influ A (Neg); Influenza B virus by PCR Neg for Influ B (Neg)
[2020-03-15] MEDS ORDERED: ACETAMINOPHEN 1,000 MG/100 ML VIAL IV STA (15:27)
[2020-03-15] MEDS ORDERED: NICOTINE 21 MG/24 HR TDSY TD STA (15:27)
[2020-03-15] MEDS ORDERED: ONDANSETRON INJ 2 MG/ML 2 ML VIAL IV STA (15:27)
[2020-03-15] MEDS ORDERED: NICOTINE POLACRILEX 2 MG GUM MT PRN (15:27)
[2020-03-15 15:34] LABS: Basophils # (auto) 0.05 K/uL (0-0.2); Basophils % (auto) 0.4 %; Eosinophils # (auto) 0.11 K/uL (0-0.5); Eosinophils % (auto) 0.8 %; Hematocrit (blood only) 51.7 % (37-47); Immature Granulocytes # (auto) 0.09 K/uL (0.00-0.02); Immature Granulocytes % (auto) 0.7 %; Lymphocytes # (auto) 3.16 K/uL (1.2-3.4); Lymphocytes % (auto) 23.1 %; Mean Corpuscular Hemoglobin 34.2 pg (25-34); Mean Corpuscular Hgb Conc 32.9 g/dL (32-36); Mean Platelet Volume 12.2 fL (7.4-10.4); Monocytes # (auto) 1.03 K/uL (0.11-0.59); Monocytes % (auto) 7.5 %; Neutrophils # (auto) 9.22 K/uL (1.4-6.5); Neutrophils % (auto) 67.5 %; Platelet Count 270 K/uL (130-400); RDW Coefficient of Variation 12.8 % (11.5-14.5); RDW Standard Deviation 48.8 fL (36.4-46.3); Red Blood Count 4.97 M/uL (4.2-5.4); White Blood Count 13.66 K/uL (4.8-10.8)
[2020-03-15] MEDS: HYDROmorphone INJ 0.5 MG/0.5 ML SYR IV PRN ×4 (15:37→23:06)
[2020-03-15 15:51] LABS: Albumin Level 3.8 gm/dl (3.4-5.0); BUN Creatinine Ratio 12.6 (10-20); Calcium 9.6 mg/dl (8.5-10.1); Creatinine Clr Calc Pharmacy 63.3 ml/min; Est GFR (African American) 81.3; Est GFR (Non-African American) 70.2; Magnesium 1.9 mg/dl (1.8-2.4); Potassium 4.7 mmol/L (3.5-5.1)
[2020-03-15 15:54] LABS: Bilirubin,Total 0.8 mg/dl (0.2-1); Ferritin 155.2 ng/ml (8-388); Phosphorus 3.3 mg/dl (2.5-4.9); Total Protein 7.8 gm/dl (6.4-8.2)
[2020-03-15 15:59] LABS: Pregnancy Test, Serum Negative (Negative)
[2020-03-15] MEDS ORDERED: INSULIN ASPART 100 UNITS/ML 3 ML PEN SC SCH (16:30)
--- NOTE | 2020-03-15 16:31 | XRay Report ---
XR chest 1V portable HISTORY: 44 years-old Female Pt c/o SOB acute shortness of breath COMPARISON: Chest radiograph 08/08/2019 TECHNIQUE: Portable AP view of the chest FINDINGS: Cardiomediastinal and hilar silhouettes are within normal limits. No pneumothorax, pleural effusion, airspace consolidation or overt pulmonary edema. Bones of the chest appear grossly intact. IMPRESSION: No acute process. ACT 112: Negative or not required by law. The above report was generated using voice recognition software. It may contain grammatical, syntax o r spelling errors. Electronically signed by: Mayo Baker M.D. 03/15/2020 4:30 PM
[2020-03-15] MEDS ORDERED: POTASSIUM CHLORIDE 20 MEQ in SODIUM CHLORIDE 0.9% 1000ML 1,000 ML IV SCH (16:45)
[2020-03-15 17:01] LABS: C Reactive Protein 0.59 mg/dl (0-0.29)
--- NOTE | 2020-03-15 17:15 | History & Physical Report ---
Date of Service March 15, 2020 Assessment & Plan (1) Diabetic keto-acidosis: This is a 44 year old female with DKA. Patient will be started on insulin drip and aggressively hydrated. Monitor electrolytes and replace as needed. Patient will remain NPO except for sips of water and ice chips. (2) URI, acute: Patient with symptoms consistent with covid except afebrile. works at [employer] and could have brought it home. Discussed with Dr. Raymond, will get rapid in house covid test. Influenza A and B negative If positive would alter DKA treatment to subcutaneous insulin. (3) Abdominal pain: Complaining of periumbilical pain radiating to her back a right upper quadrant pain. She has had nausea, vomiting and diarrhea. Consider ct abd vs RUQ u/s (4) Smokes < 1 pack of cigarettes per day: Patient states she still smokes a pack a day. Last cigarette 10 am. Will put her on 21 mg / day patch. (5) GERD with esophagitis: Continue protonix BID (6) Diabetic peripheral neuropathy associated with type 1 diabetes mellitus: Continue neurontin History of Present Illness Chief Complaint: dka, sob Primary Care Provider: Kai haley MD This is a 44 year old female with history of poorly cotrolled type 1 diabetes, diabetic gastroparesis, GERD, diabetic polyneuropathy, migraines, nicotine dependence, seizure, chronic pain and depression with anxiety who presents to the ED with complaint of DKA and shortness of breath. Patient states for the last week she has not felt well with cough, headache, nausea, vomiting, myalgias, abdominal pain, chest pain and over the last 2 days shortness of breath. She noticed when her breathing was getting rapid and knew she was going into DKA. She gave herself extra insulin but continued to get worse. Her last hgb A1c was 11.9 on 11/02/19. She lives with her and two kids. Her is a security vehicle patrol officer at [employer]. He has been around covid positive staff and clients. He is asymptomatic. Allergies Allergy/AdvReac Type Severity Reaction Status Date / Time AZO Standard Allergy Intermediate HIVES Verified 11/11/17 13:40 insulin glargine Allergy Intermediate Rash Unverified 03/15/20 16:50 [From Lantus U-100 Insulin] naproxen Allergy Intermediate HIVES & SOB Verified 03/15/20 16:50 phenazopyridine Allergy Intermediate HIVES Verified 03/15/20 16:50 insulin degludec Allergy Mild Rash Verified 03/15/20 16:50 [From Tresiba FlexTouch U-100] sumatriptan Allergy Nausea, Verified 03/15/20 16:50 vomitting, jaw pain, worsening BARNARD nicotine AdvReac Intermediate PATCH = Verified 03/15/20 16:50 SKIN IRRIATION/ITCHINESS-LOCALIZED DERMATITIS varenicline AdvReac Intermediate SEVERE Verified 03/15/20 16:50 DEPRESSION escitalopram [From Lexapro] AdvReac Mild depression Verified 03/15/20 16:50 bupropion [From Wellbutrin] AdvReac Unknown decreased Verified 03/15/20 16:50 libido doxepin AdvReac Unknown Unknown Verified 03/15/20 16:50 paroxetine [From Paxil] AdvReac Unknown decreased Verified 03/15/20 16:50 libido sulfamethoxazole AdvReac Unknown Unknown Verified 03/15/20 16:50 [From Bactrim] trimethoprim [From Bactrim] AdvReac Unknown Unknown Verified 03/15/20 16:50 Home Medications Home Medications Medication Instructions Recorded Confirmed Type Trulance 3 mg PO QAM PRN #0 11/06/17 03/15/20 History albuterol sulfate [ProAir 1 inh INHALATION QID PRN 01/18/19 03/15/20 History RespiClick] pantoprazole [Protonix] 40 mg PO BID 01/18/19 03/15/20 History diclofenac sodium 1 % topical gel 2 gm TOP QID #100 gm 06/21/19 03/15/20 Rx Novolog Flexpen U-100 Insulin 100 See Rx Instructions SUBCUT DAILY 08/26/19 03/15/20 Rx unit/mL (3 mL) subcutaneous #30 ml NS MDD 60 units ibuprofen 600 mg PO Q6H PRN 11/21/19 03/15/20 History crisaborole 2 % topical ointment 1 appln TOP BID 01/24/20 03/15/20 History amitriptyline 50 mg tablet 50 mg PO HS #30 tab 01/26/20 03/15/20 Rx estradiol [Estrace] 1 gm PV [id number] 03/15/20 03/15/20 History fluconazole [Diflucan] 200 mg PO DAILY 03/15/20 03/15/20 History gabapentin [Neurontin] 900 mg PO TID 03/15/20 03/15/20 History ondansetron HCl [Zofran] 4 mg PO Q6H PRN 03/15/20 03/15/20 History rizatriptan [Maxalt] 10 mg PO .COMPLEX PRN 03/15/20 03/15/20 History tizanidine [Zanaflex] 8 mg PO TID 03/15/20 03/15/20 History tramadol [Ultram] 50 mg PO HS 03/15/20 03/15/20 History Past Med/Surg History Medical History (Updated 03/15/20 @ 17:12 by Sandro Bruce DO) Abdominal pain Abdominal pain Anxiety Asthma over a year since last use of inhaler Degenerative disc disease Depression Diabetes mellitus type 1 uncontrolled. sliding scale & carb counting Diabetic keto-acidosis Gastroparesis GERD (gastroesophageal reflux disease) Ketoacidosis frequently but last hospitalized Dec 2018 BSG OVER 900 Migraine without aura, not intractable, without status migrainosus Ovarian cyst HX OF Pancreatitis ~2016 Peripheral neuropathy bilateral legs and feet Pneumonia Dec 2018 Post traumatic stress disorder Rectal bleeding Seizure Last seizure ~2012. "pass out" type but not convulsions. no problems since. Steatorrhea Surgical History History of colonoscopy History of esophagogastroduodenoscopy (EGD) History of hemorrhoidectomy History of tonsillectomy History of tooth extraction S/P laparoscopic assisted vaginal hysterectomy (LAVH) Surgical history of tubal ligation clips Family History Mother Family history of diabetes mellitus Diabetes Unknown Diabetes Breast cancer Father Alcohol abuse Uncle Alcohol abuse Grandmother Ovarian cancer Denies family history of Colon cancer Prostate cancer Myocardial infarction Colorectal cancer Social History Preferred Language: Indonesian Communication Ability: Effective Visual Impairment: No Limitations Hearing Ability: Normal E Commerce Architect Required: No Beliefs That Will Affect Care: None marital status: Current Living Situation: Spouse current occupational status: disabled Feels Safe at Home: Yes Smoking Status: Current every day smoker Tobacco Type: cigarettes ; Age Started Using Tobacco: 16 ; packs per day: 1 ; Cigarettes Per Day: 20 CIG DAILY ; Second Hand Exposure: No ; Hx Alcohol Use: No Hx Substance Use: Yes (hx medical marijuana use-has not used since february 2019) substance use type: marijuana Childhood Exposure to Second-Hand Smoke: Yes (grandmother) Dental Care, Regularly: Yes Physical Activity Frequency: 3-4 Times per Week Seatbelt Use: always Sunscreen Use: Yes Review of Systems Review of Systems: All systems reviewed & are unremarkable except as noted in HPI & below Physical Exam Constitutional: + ill appearing and cooperative Eyes: PERRL, conjunctivae normal, anicteric sclerae ENMT: Ears: no hearing impairment and no external ear abnormality Nose: no external nose abnormality Mouth: + dry oral mucous membranes Neck: trachea midline, no thyromegaly Respiratory: normal respiratory effort and + tachypneic Cardiovascular: Rate/Rhythm: regular rhythm and + tachycardic Gastrointestinal (Abdomen): Inspection/Auscultation: normal bowel sounds Percussion/Palpation: + abdomen tender (periumbilical and radiating to back, RUQ) Musculoskeletal: no cyanosis or clubbing, extremities motor strength 5/5 Skin: no rashes, warm and dry + turgor decreased Neurologic: patellar DTR's 2+ bilat, sensation intact Psychiatric: A+Ox3, euthymic affect Results & Data Results & Data ([facility]) Vital Signs (Past 12 Hours) Vital Signs Temp Pulse Pulse Resp BP BP Pulse Ox 03/15/20 15:42 138 H 22 150/94 H 98 03/15/20 14:30 125 H 20 155/104 H 100 03/15/20 13:35 36.3 C L 131 H 22 163/101 H 99 Laboratory Results 03/15/20 03/15/20 03/15/20 Range/Units 16:30 16:30 16:07 WBC (4.8-10.8) K/uL RBC (4.2-5.4) M/uL Hgb (12.0-16.0) g/dL POC Hgb (12.0-16.0) g/dl Hct (37-47) % POC Hct (37-47) % MCV (80-100) fL MCH (25-34) pg MCHC (32-36) g/dL RDW Std Deviation (36.4-46.3) fL RDW Coeff of Korey (11.5-14.5) % Plt Count (130-400) K/uL MPV (7.4-10.4) fL Immature Gran % (Auto) % Neut % (Auto) % Lymph % (Auto) % Patrick % (Auto) % Eos % (Auto) % Baso % (Auto) % Immature Gran # (Auto) (0.00-0.02) K/uL Neut # (Auto) (1.4-6.5) K/uL Lymph # (Auto) (1.2-3.4) K/uL Patrick # (Auto) (0.11-0.59) K/uL Eos # (Auto) (0-0.5) K/uL Baso # (Auto) (0-0.2) K/uL ESR (0-21) mm/hr VBG pH (7.36-7.41) VBG pCO2 (38-50) mmHg VBG pO2 mmHg VBG HCO3 mmol/L VBG O2 Saturation % VBG Base Excess mEq/L Barometric Pressure mm/Hg POC Sodium (135-144) mmol/L Sodium (136-145) mmol/L POC Potassium (3.3-5.0) mmol/L Potassium (3.5-5.1) mmol/L POC Chloride (101-112) mmol/L Chloride (98-107) mmol/L Carbon Dioxide (21-32) mmol/L POC Total CO2 (24-31) mEq/l Anion Gap (3-11) POC Anion Gap (16-25) mmol/L POC BUN (7-18) mg/dl BUN (7-18) mg/dl Creatinine (0.6-1.2) mg/dl POC Creatinine (0.6-1.3) mg/dl Est Cr Clr Drug Dosing ml/min Est GFR ( Amer) Est GFR (Non-Af Amer) BUN/Creatinine Ratio (10-20) Glucose Pending (70-99) mg/dl POC Glucose 526 H* 594 H* (70-99) mg/dl POC Glucose (other) (70-99) mg/dl Estimat Average Glucose Hemoglobin A1c Calcium (8.5-10.1) mg/dl POC Ioniz Calcium David (1.12-1.32) mmol/l Phosphorus (2.5-4.9) mg/dl Magnesium (1.8-2.4) mg/dl Ferritin (8-388) ng/ml Total Bilirubin (0.2-1) mg/dl AST (15-37) U/L ALT (12-78) U/L Alkaline Phosphatase (45-117) U/L C-Reactive Protein 0.59 H (0-0.29) mg/dl Total Protein (6.4-8.2) gm/dl Albumin (3.4-5.0) gm/dl Globulin (2.5-4.0) gm/dl Albumin/Globulin Ratio (0.9-2) Lipase (73-393) U/L Beta-Hydroxybutyric Acd Pending (0.2-2.81) mg/dl HCG, Qual (Negative) Urine Color Urine Appearance (Clear) Urine pH (4.5-7.5) Ur Specific Kamrar (1.000-1.030) Urine Protein (Negative) Urine Glucose (UA) (Negative) Urine Ketones (Negative) Urine Blood (Negative) Urine Nitrite (Negative) Urine Bilirubin (Negative) Urine Urobilinogen (Negative) Ur Leukocyte Esterase (Negative) COVID-19 PCR Influenza Type A (PCR) (Neg) Influenza Type B (PCR) (Neg) SARS-CoV-2 RNA (RT-PCR) 03/15/20 03/15/20 03/15/20 Range/Units 15:14 15:14 15:14 WBC (4.8-10.8) K/uL RBC (4.2-5.4) M/uL Hgb (12.0-16.0) g/dL POC Hgb (12.0-16.0) g/dl Hct (37-47) % POC Hct (37-47) % MCV (80-100) fL MCH (25-34) pg MCHC (32-36) g/dL RDW Std Deviation (36.4-46.3) fL RDW Coeff of Korey (11.5-14.5) % Plt Count (130-400) K/uL MPV (7.4-10.4) fL Immature Gran % (Auto) % Neut % (Auto) % Lymph % (Auto) % Patrick % (Auto) % Eos % (Auto) % Baso % (Auto) % Immature Gran # (Auto) (0.00-0.02) K/uL Neut # (Auto) (1.4-6.5) K/uL Lymph # (Auto) (1.2-3.4) K/uL Patrick # (Auto) (0.11-0.59) K/uL Eos # (Auto) (0-0.5) K/uL Baso # (Auto) (0-0.2) K/uL ESR (0-21) mm/hr VBG pH (7.36-7.41) VBG pCO2 (38-50) mmHg VBG pO2 mmHg VBG HCO3 mmol/L VBG O2 Saturation % VBG Base Excess mEq/L Barometric Pressure mm/Hg POC Sodium (135-144) mmol/L Sodium 130 L (136-145) mmol/L POC Potassium (3.3-5.0) mmol/L Potassium 4.7 (3.5-5.1) mmol/L POC Chloride (101-112) mmol/L Chloride 99 (98-107) mmol/L Carbon Dioxide 13 L (21-32) mmol/L POC Total CO2 (24-31) mEq/l Anion Gap 18.0 H (3-11) POC Anion Gap (16-25) mmol/L POC BUN (7-18) mg/dl BUN 12 (7-18) mg/dl Creatinine 0.98 (0.6-1.2) mg/dl POC Creatinine (0.6-1.3) mg/dl Est Cr Clr Drug Dosing 63.3 ml/min Est GFR ( Amer) 81.3 Est GFR (Non-Af Amer) 70.2 BUN/Creatinine Ratio 12.6 (10-20) Glucose (70-99) mg/dl POC Glucose (70-99) mg/dl POC Glucose (other) (70-99) mg/dl Estimat Average Glucose Pending Hemoglobin A1c Pending Calcium 9.6 (8.5-10.1) mg/dl POC Ioniz Calcium David (1.12-1.32) mmol/l Phosphorus 3.3 (2.5-4.9) mg/dl Magnesium 1.9 (1.8-2.4) mg/dl Ferritin 155.2 (8-388) ng/ml Total Bilirubin 0.8 (0.2-1) mg/dl AST 19 (15-37) U/L ALT 28 (12-78) U/L Alkaline Phosphatase 151 H (45-117) U/L C-Reactive Protein (0-0.29) mg/dl Total Protein 7.8 (6.4-8.2) gm/dl Albumin 3.8 (3.4-5.0) gm/dl Globulin 4.0 (2.5-4.0) gm/dl Albumin/Globulin Ratio 1.0 (0.9-2) Lipase 40 L (73-393) U/L Beta-Hydroxybutyric Acd (0.2-2.81) mg/dl HCG, Qual Negative (Negative) Urine Color Urine Appearance (Clear) Urine pH (4.5-7.5) Ur Specific Kamrar (1.000-1.030) Urine Protein (Negative) Urine Glucose (UA) (Negative) Urine Ketones (Negative) Urine Blood (Negative) Urine Nitrite (Negative) Urine Bilirubin (Negative) Urine Urobilinogen (Negative) Ur Leukocyte Esterase (Negative) COVID-19 PCR Influenza Type A (PCR) (Neg) Influenza Type B (PCR) (Neg) SARS-CoV-2 RNA (RT-PCR) 03/15/20 03/15/20 03/15/20 Range/Units 15:14 15:14 15:00 WBC 13.66 H (4.8-10.8) K/uL RBC 4.97 (4.2-5.4) M/uL Hgb 17.0 H (12.0-16.0) g/dL POC Hgb 19.0 H (12.0-16.0) g/dl Hct 51.7 H (37-47) % POC Hct 56 H (37-47) % MCV 104.0 H (80-100) fL MCH 34.2 H (25-34) pg MCHC 32.9 (32-36) g/dL RDW Std Deviation 48.8 H (36.4-46.3) fL RDW Coeff of Korey 12.8 (11.5-14.5) % Plt Count 270 (130-400) K/uL MPV 12.2 H (7.4-10.4) fL Immature Gran % (Auto) 0.7 % Neut % (Auto) 67.5 % Lymph % (Auto) 23.1 % Patrick % (Auto) 7.5 % Eos % (Auto) 0.8 % Baso % (Auto) 0.4 % Immature Gran # (Auto) 0.09 H (0.00-0.02) K/uL Neut # (Auto) 9.22 H (1.4-6.5) K/uL Lymph # (Auto) 3.16 (1.2-3.4) K/uL Patrick # (Auto) 1.03 H (0.11-0.59) K/uL Eos # (Auto) 0.11 (0-0.5) K/uL Baso # (Auto) 0.05 (0-0.2) K/uL ESR 1 (0-21) mm/hr VBG pH (7.36-7.41) VBG pCO2 (38-50) mmHg VBG pO2 mmHg VBG HCO3 mmol/L VBG O2 Saturation % VBG Base Excess mEq/L Barometric Pressure mm/Hg POC Sodium 130 L (135-144) mmol/L Sodium (136-145) mmol/L POC Potassium 6.4 H* (3.3-5.0) mmol/L Potassium (3.5-5.1) mmol/L POC Chloride 102 (101-112) mmol/L Chloride (98-107) mmol/L Carbon Dioxide (21-32) mmol/L POC Total CO2 13 L (24-31) mEq/l Anion Gap (3-11) POC Anion Gap 23.0 (16-25) mmol/L POC BUN 16 (7-18) mg/dl BUN (7-18) mg/dl Creatinine (0.6-1.2) mg/dl POC Creatinine 0.5 L (0.6-1.3) mg/dl Est Cr Clr Drug Dosing ml/min Est GFR ( Amer) Est GFR (Non-Af Amer) BUN/Creatinine Ratio (10-20) Glucose (70-99) mg/dl POC Glucose (70-99) mg/dl POC Glucose (other) 615 H* (70-99) mg/dl Estimat Average Glucose Hemoglobin A1c Calcium (8.5-10.1) mg/dl POC Ioniz Calcium David 1.04 L (1.12-1.32) mmol/l Phosphorus (2.5-4.9) mg/dl Magnesium (1.8-2.4) mg/dl Ferritin (8-388) ng/ml Total Bilirubin (0.2-1) mg/dl AST (15-37) U/L ALT (12-78) U/L Alkaline Phosphatase (45-117) U/L C-Reactive Protein (0-0.29) mg/dl Total Protein (6.4-8.2) gm/dl Albumin (3.4-5.0) gm/dl Globulin (2.5-4.0) gm/dl Albumin/Globulin Ratio (0.9-2) Lipase (73-393) U/L Beta-Hydroxybutyric Acd (0.2-2.81) mg/dl HCG, Qual (Negative) Urine Color Urine Appearance (Clear) Urine pH (4.5-7.5) Ur Specific Kamrar (1.000-1.030) Urine Protein (Negative) Urine Glucose (UA) (Negative) Urine Ketones (Negative) Urine Blood (Negative) Urine Nitrite (Negative) Urine Bilirubin (Negative) Urine Urobilinogen (Negative) Ur Leukocyte Esterase (Negative) COVID-19 PCR Influenza Type A (PCR) (Neg) Influenza Type B (PCR) (Neg) SARS-CoV-2 RNA (RT-PCR) 03/15/20 03/15/20 03/15/20 Range/Units 14:47 14:15 14:15 WBC (4.8-10.8) K/uL RBC (4.2-5.4) M/uL Hgb (12.0-16.0) g/dL POC Hgb (12.0-16.0) g/dl Hct (37-47) % POC Hct (37-47) % MCV (80-100) fL MCH (25-34) pg MCHC (32-36) g/dL RDW Std Deviation (36.4-46.3) fL RDW Coeff of Korey (11.5-14.5) % Plt Count (130-400) K/uL MPV (7.4-10.4) fL Immature Gran % (Auto) % Neut % (Auto) % Lymph % (Auto) % Patrick % (Auto) % Eos % (Auto) % Baso % (Auto) % Immature Gran # (Auto) (0.00-0.02) K/uL Neut # (Auto) (1.4-6.5) K/uL Lymph # (Auto) (1.2-3.4) K/uL Patrick # (Auto) (0.11-0.59) K/uL Eos # (Auto) (0-0.5) K/uL Baso # (Auto) (0-0.2) K/uL ESR (0-21) mm/hr VBG pH 7.28 L (7.36-7.41) VBG pCO2 28 L (38-50) mmHg VBG pO2 47 mmHg VBG HCO3 13 mmol/L VBG O2 Saturation 77.3 % VBG Base Excess -12.0 mEq/L Barometric Pressure 728.9 mm/Hg POC Sodium (135-144) mmol/L Sodium (136-145) mmol/L POC Potassium (3.3-5.0) mmol/L Potassium (3.5-5.1) mmol/L POC Chloride (101-112) mmol/L Chloride (98-107) mmol/L Carbon Dioxide (21-32) mmol/L POC Total CO2 (24-31) mEq/l Anion Gap (3-11) POC Anion Gap (16-25) mmol/L POC BUN (7-18) mg/dl BUN (7-18) mg/dl Creatinine (0.6-1.2) mg/dl POC Creatinine (0.6-1.3) mg/dl Est Cr Clr Drug Dosing ml/min Est GFR ( Amer) Est GFR (Non-Af Amer) BUN/Creatinine Ratio (10-20) Glucose (70-99) mg/dl POC Glucose (70-99) mg/dl POC Glucose (other) (70-99) mg/dl Estimat Average Glucose Hemoglobin A1c Calcium (8.5-10.1) mg/dl POC Ioniz Calcium David (1.12-1.32) mmol/l Phosphorus (2.5-4.9) mg/dl Magnesium (1.8-2.4) mg/dl Ferritin (8-388) ng/ml Total Bilirubin (0.2-1) mg/dl AST (15-37) U/L ALT (12-78) U/L Alkaline Phosphatase (45-117) U/L C-Reactive Protein (0-0.29) mg/dl Total Protein (6.4-8.2) gm/dl Albumin (3.4-5.0) gm/dl Globulin (2.5-4.0) gm/dl Albumin/Globulin Ratio (0.9-2) Lipase (73-393) U/L Beta-Hydroxybutyric Acd (0.2-2.81) mg/dl HCG, Qual (Negative) Urine Color Urine Appearance (Clear) Urine pH (4.5-7.5) Ur Specific Kamrar (1.000-1.030) Urine Protein (Negative) Urine Glucose (UA) (Negative) Urine Ketones (Negative) Urine Blood (Negative) Urine Nitrite (Negative) Urine Bilirubin (Negative) Urine Urobilinogen (Negative) Ur Leukocyte Esterase (Negative) COVID-19 PCR Pending Influenza Type A (PCR) Neg for Influ A (Neg) Influenza Type B (PCR) Neg for Influ B (Neg) SARS-CoV-2 RNA (RT-PCR) 03/15/20 03/15/20 03/15/20 Range/Units 14:15 14:15 13:48 WBC (4.8-10.8) K/uL RBC (4.2-5.4) M/uL Hgb (12.0-16.0) g/dL POC Hgb (12.0-16.0) g/dl Hct (37-47) % POC Hct (37-47) % MCV (80-100) fL MCH (25-34) pg MCHC (32-36) g/dL RDW Std Deviation (36.4-46.3) fL RDW Coeff of Korey (11.5-14.5) % Plt Count (130-400) K/uL MPV (7.4-10.4) fL Immature Gran % (Auto) % Neut % (Auto) % Lymph % (Auto) % Patrick % (Auto) % Eos % (Auto) % Baso % (Auto) % Immature Gran # (Auto) (0.00-0.02) K/uL Neut # (Auto) (1.4-6.5) K/uL Lymph # (Auto) (1.2-3.4) K/uL Patrick # (Auto) (0.11-0.59) K/uL Eos # (Auto) (0-0.5) K/uL Baso # (Auto) (0-0.2) K/uL ESR (0-21) mm/hr VBG pH (7.36-7.41) VBG pCO2 (38-50) mmHg VBG pO2 mmHg VBG HCO3 mmol/L VBG O2 Saturation % VBG Base Excess mEq/L Barometric Pressure mm/Hg POC Sodium (135-144) mmol/L Sodium (136-145) mmol/L POC Potassium (3.3-5.0) mmol/L Potassium (3.5-5.1) mmol/L POC Chloride (101-112) mmol/L Chloride (98-107) mmol/L Carbon Dioxide (21-32) mmol/L POC Total CO2 (24-31) mEq/l Anion Gap (3-11) POC Anion Gap (16-25) mmol/L POC BUN (7-18) mg/dl BUN (7-18) mg/dl Creatinine (0.6-1.2) mg/dl POC Creatinine (0.6-1.3) mg/dl Est Cr Clr Drug Dosing ml/min Est GFR ( Amer) Est GFR (Non-Af Amer) BUN/Creatinine Ratio (10-20) Glucose (70-99) mg/dl POC Glucose 558 H* (70-99) mg/dl POC Glucose (other) (70-99) mg/dl Estimat Average Glucose Hemoglobin A1c Calcium (8.5-10.1) mg/dl POC Ioniz Calcium David (1.12-1.32) mmol/l Phosphorus (2.5-4.9) mg/dl Magnesium (1.8-2.4) mg/dl Ferritin (8-388) ng/ml Total Bilirubin (0.2-1) mg/dl AST (15-37) U/L ALT (12-78) U/L Alkaline Phosphatase (45-117) U/L C-Reactive Protein (0-0.29) mg/dl Total Protein (6.4-8.2) gm/dl Albumin (3.4-5.0) gm/dl Globulin (2.5-4.0) gm/dl Albumin/Globulin Ratio (0.9-2) Lipase (73-393) U/L Beta-Hydroxybutyric Acd (0.2-2.81) mg/dl HCG, Qual (Negative) Urine Color Yellow Urine Appearance Clear (Clear) Urine pH 5.0 (4.5-7.5) Ur Specific Kamrar 1.033 H (1.000-1.030) Urine Protein Negative (Negative) Urine Glucose (UA) 3+ H (Negative) Urine Ketones 4+ H (Negative) Urine Blood Negative (Negative) Urine Nitrite Negative (Negative) Urine Bilirubin Negative (Negative) Urine Urobilinogen Negative (Negative) Ur Leukocyte Esterase Negative (Negative) COVID-19 PCR Influenza Type A (PCR) (Neg) Influenza Type B (PCR) (Neg) SARS-CoV-2 RNA (RT-PCR) Cancelled Diagnostic Findings cxr - Cardiomediastinal and hilar silhouettes are within normal limits. No pneumothorax, pleural effusion, airspace consolidation or overt pulmonary edema. Bones of the chest appear grossly intact. IMPRESSION: No acute process Code Status & VTE Plan Code Status full code VTE Prophylaxis Plan VTE Prophylaxis will be ordered: Yes Supervising Physician Co-Signing Physician Notes Attending Attestation & Admission Note: Pt seen/examined, chart reviewed, admission care plan d/w Dr Sandro Bruce. I agree w/ the gr components of his documentation. 44yo female with uncontrolled T1DM complicated by neuropathy/gastroparesis - dx 2010 - along with asthma, recent presumed candidal esophagitis (completed 14-day course of diflucan), and ongoing tobacco dependence -- presenting with 1 week of flu-like symptoms (myalgias, arthralgias, sore throat, headache, runny nose, cough, dyspnea, abd pain, vomiting, diarrhea). No fever. Over the last 2 days her dyspnea has worsened coinciding with escalating blood sugars. Only time out of her home was going to [place]. However, is a security vehicle patrol officer at [employer] and he apparently has been near inmates that tested positive for COVID-19. Neither him nor their 2 children have had infectious symptoms. Patient is only on novolog. Uses about 70-90 units/day. Does not take basal insulin due to previous skin rashes with lantus and tresiba. Prior to my arrival patient received 2 boluses of NS, calcium IV, and bolus of regular insulin 0.1 u/kg. During the visit she c/o dyspnea as well as thirst but has significant nausea. PMH, PSH, allergies, meds, sochx, famhx, ros - reviewed vitals - no fever, tachy, o2 sats wnl gen - anxious, thin, ill-appearing, dehydrated, tachypneic conjunctiva mildly injected nose with clear rhinnorhea mouth - MM very dry; no thrush neck - no lymphadenopathy heart - tachy, s1 s2 lungs - cta b/l, tachypneic abd - soft, mildly tender epigastric region (slight RUQ), BS+, no HSM ext - warm, pulses 2+ b/l skin - no rashes CBC w/ leukocytosis BMP with elevated anion gap glucose 604 crp mildly elevated flu negative COVID pending HCG negative cxr - no infiltrates A/P: 1. uncontrolled T1DM with mild-moderate DKA 2. URI/flu-like symptoms -- concern for COVID-19 -- test pending; place in airborne isolation/neg pressure 3. dyspnea - cxr w/o infiltrates - likely respiratory alkalosis 2nd to DKA 4. h/o asthma - no exacerbation at this time 5. abdominal pain - likely due to DKA, but pain is radiating to the right flank and back; if COVID test is negative strongly consider CT abd/pelvis 6. gastroparesis 7. recent presumed candidal esophagitis - s/p 14-day course of diflucan; no oral lesions seen on oral mucosa; likely resolved Give additional 500cc fluid bolus now; then NS w/ KCL at 200cc/hr. Serial BMPs, pH, etc q4h. If COVID testing is negative proceed forward with insulin drip in customary fashion. If COVID testing is positive - to minimize staff risk, decrease PPE usage, etc - consider treating DKA with SC insulin. I have discussed the above with pharmacy. They have been consulted for assistance with DKA management. Check a1c. DM education while here. Patient needs basal insulin chronically. Strongly consider re-trial of levemir or basaglar. Or, refer to endo as outpatient for consideration of pump. Axel Singh MD PG Care Time/CCT Total # of Minutes Spent Total Time Spent with Patient: Total time spent is greater than 50% in coordination of care (as documented) at patient's floor/unit and/or counseling patient: 60 min Coding Level of Care Code 33441 Initial Inpt Care Lvl 3 Diagnoses Diabetic keto-acidosis E11.10 URI, acute J06.9 Abdominal pain R10.9 Smokes < 1 pack of cigarettes per day F17.210 GERD with esophagitis K21.0 Diabetic peripheral neuropathy associated with type 1 diabetes mellitus E10.42
[2020-03-15 17:16] LABS: Beta-Hydroxybutyrate 95.59 mg/dl (0.2-2.81)
[2020-03-15] MEDS ORDERED: SODIUM CHLORIDE 0.9% 500 ML IV ONE (18:00)
[2020-03-15] MEDS ORDERED: TRAMADOL HCL 50 MG TABLET PO PRN (18:41)
[2020-03-15] MEDS ORDERED: ALBUTEROL HFA 8 GM INHALER INH PRN (18:41)
[2020-03-15] MEDS ORDERED: DC ALL PREVIOUSLY ORDERED DIABETES MEDS ONE (18:41)
[2020-03-15] MEDS ORDERED: ONDANSETRON INJ 2 MG/ML 2 ML VIAL IV PRN (18:41)
[2020-03-15] MEDS ORDERED: ACETAMINOPHEN 325 MG TAB PO PRN (18:41)
[2020-03-15] MEDS ORDERED: PHARMACY GLYCEMIC MGMT CONSULT PRN (18:57)
[2020-03-15] MEDS ORDERED: NSS + 20MEQ KCL 20 MEQ/1,000 ML BAG IV SCH (19:00)
[2020-03-15] MEDS: INSULIN ASPART 100 UNITS/ML 3 ML PEN SC SCH (19:33)
[2020-03-15] MEDS ORDERED: PENDING D5 1/2NS+20mEq KCL IVF ONE (19:47)
[2020-03-15] MEDS ORDERED: AMITRIPTYLINE HCL 50 MG TAB PO SCH (20:00)
[2020-03-15] MEDS: D5W AND 1/2NSS + 20MEQ KCL 20 MEQ/1,000 ML BAG IV SCH (20:08)
[2020-03-15] MEDS: HEPARIN SOD 5,000 UNIT/0.5 ML VIAL SQ SCH (20:09)
[2020-03-15] MEDS: DICLOFENAC SOD 1% GEL 100 GM TUBE EXT SCH (20:10)
[2020-03-15 20:15] LABS: BUN Creatinine Ratio 12.6 (10-20); Calcium 8.2 mg/dl (8.5-10.1); Creatinine Clr Calc Pharmacy 79.5 ml/min; Est GFR (African American) 107.2; Est GFR (Non-African American) 92.5; Potassium 4.5 mmol/L (3.5-5.1)
[2020-03-15 20:17] LABS: Magnesium 1.6 mg/dl (1.8-2.4)
[2020-03-15] MEDS ORDERED: IOVERSOL 100ml IV PRN (21:31)
[2020-03-15] MEDS: GABAPENTIN 600 MG TAB PO SCH (21:44)
[2020-03-15] MEDS: PANTOprazole 40 MG TAB PO SCH (21:44)
[2020-03-15] MEDS: TIZANIDINE HCL 4 MG TABLET PO SCH (21:44)
--- NOTE | 2020-03-15 22:43 | CT Scan Report ---
ABDOMEN AND PELVIS CT WITH IV CONTRAST CT DOSE: 388.58 mGycm HISTORY: Acute periumbilical abdominal pain Persistent Abdominal Pain x1 week TECHNIQUE: Multiaxial CT images of the abdomen and pelvis were performed following the IV administrat ion of 94 cc of Optiray 320, A dose lowering technique was utilized adhering to the principles of AL GENIE. COMPARISON STUDY: CT abdomen and pelvis 01/03/2019 FINDINGS: Mild right hemidiaphragmatic elevation. There are a few scattered semisolid nodules of the lung bases measuring up to 4 mm which are nonspecific however are low suspicion. No pneumatosis or pneumoperito neum. The imaged inferior cardiac chambers appear unremarkable. The spleen, pancreas and adrenal glan ds appear unremarkable. Mildly contracted gallbladder. No biliary ductal dilation. Ill-defined hypode nsity left hepatic lobe adjacent to the falciform ligament suggests focal fatty infiltration. Indeter minate 6 mm hypodensity of the hepatic dome. Liver is enlarged measuring up to 18.5 cm along the mid clavicular line. Patency of the hepatic and portal veins. Kidneys enhance symmetrically. 5 mm fatty attenuating lesion of the interpolar right kidney is sugges tive of a renal angiomyolipoma. Mild urinary bladder distention. Uterus appears surgically absent. 4. 2 cm right ovarian cyst. 2.7 cm cystic structure of the left adnexum suggests a dominant follicle. Mi ld mixed plaque of the abdominal aorta without aneurysm. No adenopathy. Nonspecific circumferential wall thickening of the distal esophagus. No bowel obstruction or bowel wa ll thickening. No ascites or mesenteric inflammation. Mild to moderate fecal retention. Additionally, there are a few stool-filled loops of small bowel within the pelvis. Normal appendix. Tiny fat fille d periumbilical hernia, diastases 10 mm. Subcutaneous stranding of the anterior abdominal wall, right greater than left is noted with mild associated skin thickening. Mild generalized body wall edema. B ones appear intact. IMPRESSION: 1. No bowel obstruction or bowel wall thickening. 2. Normal appendix. 3. Mild nonspecific distal esophageal wall thickening suspicious for esophagitis. 4. Mild to moderate fecal retention. 5. 4.2 cm right ovarian cyst. 6. Tiny fat filled periumbilical hernia. 7. Subcutaneous stranding of the intra-abdominal wall, right greater than left with mild associated s kin thickening may be secondary to medicinal injection site versus cellulitis. ACT 112: Negative or not required by law. The above report was generated using voice recognition software. It may contain grammatical, syntax o r spelling errors. Electronically signed by: Mayo Baker M.D. 03/15/2020 10:42 PM
[2020-03-16] MEDS: DEXTROSE 50% 50 ML SYRINGE IV PRN ×2 (01:03→01:22)
[2020-03-16] MEDS: D5W AND 1/2NSS + 20MEQ KCL 20 MEQ/1,000 ML BAG IV SCH ×2 (01:04→06:10)
[2020-03-16] MEDS: HYDROmorphone INJ 0.5 MG/0.5 ML SYR IV PRN ×4 (02:54→14:51)
[2020-03-16 03:05] LABS: Basophils # (auto) 0.04 K/uL (0-0.2); Basophils % (auto) 0.4 %; Eosinophils # (auto) 0.21 K/uL (0-0.5); Hematocrit (blood only) 39.7 % (37-47); Hemoglobin 13.4 g/dL (12.0-16.0); Immature Granulocytes # (auto) 0.04 K/uL (0.00-0.02); Immature Granulocytes % (auto) 0.4 %; Lymphocytes # (auto) 4.18 K/uL (1.2-3.4); Mean Corpuscular Hemoglobin 34.4 pg (25-34); Mean Corpuscular Hgb Conc 33.8 g/dL (32-36); Mean Corpuscular Volume 102.1 fL (80-100); Mean Platelet Volume 11.1 fL (7.4-10.4); Monocytes # (auto) 0.83 K/uL (0.11-0.59); Monocytes % (auto) 7.9 %; Neutrophils # (auto) 5.15 K/uL (1.4-6.5); Neutrophils % (auto) 49.3 %; Platelet Count 202 K/uL (130-400); RDW Coefficient of Variation 12.8 % (11.5-14.5); RDW Standard Deviation 47.5 fL (36.4-46.3); Red Blood Count 3.89 M/uL (4.2-5.4); White Blood Count 10.45 K/uL (4.8-10.8)
[2020-03-16 03:26] LABS: BUN Creatinine Ratio 8.1 (10-20); Calcium 7.2 mg/dl (8.5-10.1); Creatinine Clr Calc Pharmacy 108.8 ml/min; Est GFR (African American) 130.7; Est GFR (Non-African American) 112.7; Magnesium 1.6 mg/dl (1.8-2.4); Phosphorus 2.4 mg/dl (2.5-4.9)
[2020-03-16 07:29] LABS: BUN Creatinine Ratio 6.8 (10-20); Calcium 7.4 mg/dl (8.5-10.1); Creatinine Clr Calc Pharmacy 106.9 ml/min; Est GFR (African American) 129.9; Est GFR (Non-African American) 112.1; Magnesium 1.6 mg/dl (1.8-2.4)
[2020-03-16] MEDS: INSULIN ASPART 100 UNITS/ML 3 ML PEN SC SCH ×3 (07:32→16:39)
[2020-03-16] MEDS: HEPARIN SOD 5,000 UNIT/0.5 ML VIAL SQ SCH (07:33)
[2020-03-16] MEDS: GABAPENTIN 600 MG TAB PO SCH ×2 (07:33→12:00)
[2020-03-16 07:34] LABS: Phosphorus 1.7 mg/dl (2.5-4.9)
[2020-03-16] MEDS: DICLOFENAC SOD 1% GEL 100 GM TUBE EXT SCH ×4 (07:34→16:39)
[2020-03-16] MEDS: TIZANIDINE HCL 4 MG TABLET PO SCH ×2 (07:35→12:00)
[2020-03-16] MEDS ORDERED: INSULIN DETEMIR FLEXPEN/FLEX TOUCH 100 UNITS/ML 3ML SC ONE (08:45)
[2020-03-16] MEDS: PANTOprazole 40 MG TAB PO SCH (08:52)
[2020-03-16] MEDS ORDERED: MAGNESIUM SULFATE / D5W 1 GM/100 ML BAG IV ONE (09:15)
[2020-03-16] MEDS: POT PHOSPHATE MONOBASIC W/ SOD TAB PO SCH ×2 (09:22→12:02)
--- NOTE | 2020-03-16 10:18 | Pharmacy Report ---
Pharmacy Glycemic Short Note 2 - Date of Service March 16, 2020 - Glycemic Short BSG Results (Last 24 hours): 03/15/20 03/15/20 03/15/20 13:48 15:00 15:14 Glucose POC Glucose 558 H* POC Glucose (other) 615 H* 03/15/20 03/15/20 03/15/20 16:07 16:30 16:30 Glucose 604 H* POC Glucose 594 H* 526 H* POC Glucose (other) 03/15/20 03/15/20 03/15/20 17:08 18:15 19:16 Glucose 277 H POC Glucose 515 H* 360 H* POC Glucose (other) 03/15/20 03/15/20 03/15/20 19:16 19:24 20:55 Glucose Cancelled POC Glucose 199 H 148 H POC Glucose (other) 03/15/20 03/15/20 03/16/20 21:53 23:06 00:01 Glucose POC Glucose 165 H 158 H 131 H POC Glucose (other) 03/16/20 03/16/20 03/16/20 00:59 01:19 01:37 Glucose POC Glucose 108 H 147 H 236 H POC Glucose (other) 03/16/20 03/16/20 03/16/20 02:53 02:53 03:48 Glucose 241 H POC Glucose 237 H 222 H POC Glucose (other) 03/16/20 03/16/20 03/16/20 04:48 06:43 06:44 Glucose 231 H POC Glucose 218 H 228 H POC Glucose (other) 03/16/20 03/16/20 08:41 09:37 Glucose POC Glucose 264 H 196 H POC Glucose (other) OUTPATIENT ANTIDIABETIC REGIMEN: * Novolog SQ Q 2-3 hours, utilizes carb counting 1 unit per 10gm CHO, does give additional insulin for correction but does not use a correction factor but bases dose on BSG and carb content of meal. She reports typically giving herself ~8 injections per day. * No basal insulin * A1c = 11.3% 12/2019 ASSESSMENT: * Poorly controlled type 1 diabetic admitted with moderate DKA, URTI symptoms * Initial labs: BSG 615, AG 18, Bicarb 13, vpH 7.28, Na 130 (mati Na 138) * IV hydration and IV insulin infusion initiated * Insulin infusing at 1.1 units/hr this AM. AG metabolic acidosis has resolved. Patient is ordered a diet and BSG < 200. Will transition to basal/bolus SQ regimen. Initial regimen will be based upon pt weight and "moderate" stress (~0.5-0.6unit/kg/day) * Of note, patient reports allergies to basal insulins. Specifically she repor ts allergy to Lantus and Tresiba, both of which were reported to cause itching and swelling at injection sites. Patient had received Lantus during 12/2018 admission without issue and was to be discharged on Lantus however pt has since discontinued. Pt is agreeable to trying a different basal insulin at this time. I advised that basal insulin will offer her better control of BSGs, less rapid acting injections, and more stable BSG pattern. She agrees to try Levemir this admission. NPH would be another option if insurance coverage becomes an issue. * Patient notes she is not interested in using an insulin pump as it is too tedious and she would use basal/bolus SQ regimen. PLAN FOR INPATIENT GLYCEMIC CONTROL: * Basal insulin * Levemir 20 units SQ x 1 this AM * Levemir per scaled dose this PM: 0 units if BSG less than 180, 5 units if BSG above 180 * Discontinue IV insulin infusion ~3 hrs after 1st Levemir dose * Bolus insulin * NovoLog per scale ACHS and at 00,04 initially * Goal Range: Low 110 mg/dL - High 140 mg/dL * Correction Factor: 30 mg/dL/unit * Nutritional / Prandial insulin per carb ratio of 1 unit per 10 grams CHO consumed PLAN FOR DISCHARGE: * Levemir 18 units daily (if Levemir not covered would recommend NPH 12 units w/ breakfast + 6 units with dinner) * Novolog with meals using carb ratio 1 unit per 10 grams carbs * Novolog correction: 1 unit of insulin per 40mg/dL above 140 * BSG 141-180 give 1 additional unit * BSG 181-220 give 2 additional units * BSG 221-250 give 3 additional units * BSG 251-280 give 4 additional units * BSG > 280 give 5 additional units
[2020-03-16 11:06] LABS: BUN Creatinine Ratio 6.3 (10-20); Calcium 7.8 mg/dl (8.5-10.1); Creatinine Clr Calc Pharmacy 108.8 ml/min; Est GFR (African American) 130.7; Est GFR (Non-African American) 112.7; Magnesium 2.1 mg/dl (1.8-2.4); Potassium 3.8 mmol/L (3.5-5.1)
[2020-03-16 11:18] LABS: Phosphorus 1.1 mg/dl (2.5-4.9)
[2020-03-16] MEDS ORDERED: [UNRECOGNIZED DRUG - REMARK] ONE ×2 (12:00→13:00)
[2020-03-16 15:09] LABS: BUN Creatinine Ratio 7.1 (10-20); Calcium 7.8 mg/dl (8.5-10.1); Creatinine Clr Calc Pharmacy 140.9 ml/min; Est GFR (African American) 142.3; Est GFR (Non-African American) 122.8; Magnesium 2.3 mg/dl (1.8-2.4); Potassium 3.6 mmol/L (3.5-5.1)
[2020-03-16 15:11] LABS: Phosphorus 2.5 mg/dl (2.5-4.9)
--- NOTE | 2020-03-16 17:59 | Discharge Summary ---
Date of Service March 16, 2020 Admission HPI Per Admitting Provider This is a 44 year old female with history of poorly cotrolled type 1 diabetes, diabetic gastroparesis, GERD, diabetic polyneuropathy, migraines, nicotine dependence, seizure, chronic pain and depression with anxiety who presents to the ED with complaint of DKA and shortness of breath. Patient states for the last week she has not felt well with cough, headache, nausea, vomiting, myalgias, abdominal pain, chest pain and over the last 2 days shortness of breath. She noticed when her breathing was getting rapid and knew she was going into DKA. She gave herself extra insulin but continued to get worse. Her last hgb A1c was 11.9 on 11/02/19. She lives with her and two kids. Her is a founder and chief technical officer at [employer]. He has been around [employer] staff and clients. He is asymptomatic. Principal Diagnosis Diabetic ketoacidosis, type 1 diabetes Discharge Exam The patient appeared well Vital signs as documented. Lungs are clear to auscultation and percussion. Cardiac exam, Rhythm is regular.. No murmurs, rubs or gallops. Abdominal exam reveals normal bowel sounds, soft non tender, no masses Extremities are nonedematous and both pedal pulses are normal. Neurologic exam is alert and oriented, no focal loss of strength or sensation Skin is without bruises or rashes Psychologically is without concerns for anxiety or depression Discharge Data Allergies Allergy/AdvReac Type Severity Reaction Status Date / Time AZO Standard Allergy Intermediate HIVES Verified 11/11/17 13:40 insulin glargine Allergy Intermediate Rash Unverified 03/15/20 16:50 [From Lantus U-100 Insulin] naproxen Allergy Intermediate HIVES & SOB Verified 03/15/20 16:50 phenazopyridine Allergy Intermediate HIVES Verified 03/15/20 16:50 insulin degludec Allergy Mild Rash Verified 03/15/20 16:50 [From Tresiba FlexTouch U-100] sumatriptan Allergy Nausea, Verified 03/15/20 16:50 vomitting, jaw pain, worsening BARNARD nicotine AdvReac Intermediate PATCH = Verified 03/15/20 16:50 SKIN IRRIATION/ITCHINESS-LOCALIZED DERMATITIS varenicline AdvReac Intermediate SEVERE Verified 03/15/20 16:50 DEPRESSION escitalopram [From Lexapro] AdvReac Mild depression Verified 03/15/20 16:50 bupropion [From Wellbutrin] AdvReac Unknown decreased Verified 03/15/20 16:50 libido doxepin AdvReac Unknown Unknown Verified 03/15/20 16:50 paroxetine [From Paxil] AdvReac Unknown decreased Verified 03/15/20 16:50 libido sulfamethoxazole AdvReac Unknown Unknown Verified 03/15/20 16:50 [From Bactrim] trimethoprim [From Bactrim] AdvReac Unknown Unknown Verified 03/15/20 16:50 Consultations 03/15/20 15:22 ED Decision to Admit Stat Ordered Studies 03/15/20 19:28 CT abd pelvis IV con only Routine Hospital Course (1) Diabetic keto-acidosis: This is a 44 year old female with DKA. Patient was transition to long-acting insulin. Reportedly she has some allergies to Lantus type products. She was changed to Levemir once a day dosing. She was initially given 20 units but her blood sugars came down to the 80 range. We reduced its unit dosing to 16 units daily. I phone a prescription and which he seemed to be acceptable to starting. She will continue her short acting insulin sliding scale as previously. I did speak with her primary care doctor via electronic indication informing her of her discharge and need for close follow-up (2) URI, acute: Patient with symptoms consistent with covid except afebrile. works at [employer] and reportedly there is code at that facility. Her COVID testing is negative. Influenza A and B negative (3) Abdominal pain: Resolved with resolution of her DKA (4) Smokes < 1 pack of cigarettes per day: Patient states she still smokes a pack a day. Last cigarette 10 am. Will put her on 21 mg / day patch. Did offer smoking cessation counseling while the patient was here not interested in going home with any nicotine replacement therapy (5) GERD with esophagitis: Continue protonix BID (6) Diabetic peripheral neuropathy associated with type 1 diabetes mellitus: Continue neurontin Total Time Total Time Spent Total Time Spent (In Minutes): It required greater than 30 minutes to prepare this patient for discharge Discharge Plan Discharge Items Patient Disposition: Home - Self-Care Reason For Visit: DKA Discharge Diagnosis: diabetic keto acidosis Activity: Resume your previous activity Non-emergency contact: Primary Care Provider Call non-emergency contact if: you have any medication questions Follow-up/Referrals: [facility] Endocrinology [Provider Group] (Please, follow up with the [facility] Endocrinology Office. *A nurse from this office is supposed to call you with appointment information. If you have any questions, call the office at [phone].) Kai Amador MD [Primary Care Provider] - Diet: Carb Count or DM1 Addtl Attending Provider Instructions: It will be very helpful to you to take one subcutaneous injection of Levemir insulin daily in addition to your short acting insuln, if you have some low readings call your provider( who helps you manage your diabetes) and discuss changes to your regiment. Encourage you to take a multiple vitamin with minerals or a vitamins to help replenish your bodies minerals Pending Studies at Discharge: No Stand-Alone Forms: My [facility] 24[employer], Smoking Cessation Medications and DC Order Prescriptions: New Levemir FlexTouch U-100 Insuln 100 unit/mL (3 mL) Insulin Pen 16 units SC QAM Qty: 6 RF: 6 Continued Trulance 3 mg Tablet 3 mg PO QAM PRN (Reason: Constipation) Qty: 0 RF: 0 diclofenac sodium [Voltaren] 1 % gel 2 gm TOP QID Qty: 100 RF: 3 Hold Instructions: NOT TAKE amitriptyline 50 mg tablet 50 mg PO HS Qty: 30 RF: 5 Eucrisa 2 % ointment 1 appln TOP BID RF: 0 pantoprazole [Protonix] 40 mg Tablet,Delayed Release (Dr/Ec) 40 mg PO BID RF: 0 ProAir RespiClick 90 mcg/actuation Aerosol Powdr Breath Activated 1 inh INHALATION QID PRN (Reason: SHORT OF BREATH) RF: 0 gabapentin [Neurontin] 600 mg tablet 900 mg PO TID RF: 0 tizanidine [Zanaflex] 4 mg tablet 8 mg PO TID RF: 0 ondansetron HCl [Zofran] 4 mg tablet 4 mg PO Q6H PRN (Reason: Nausea) RF: 0 rizatriptan [Maxalt] 10 mg tablet 10 mg PO .COMPLEX PRN (Reason: Migraine Headache) RF: 0 tramadol [Ultram] 50 mg tablet 50 mg PO HS RF: 0 estradiol [Estrace] 0.01 % (0.1 mg/gram) cream 1 gm PV [id number] RF: 0 insulin aspart U-100 [Novolog Flexpen U-100 Insulin] 100 unit/mL (3 mL) insulin pen See Rx Instructions SUBCUT DAILY MDD 60 units Qty: 30 RF: 5 ibuprofen 200 mg Tablet 600 mg PO Q6H PRN (Reason: Pain) RF: 0 Discontinued fluconazole [Diflucan] 200 mg tablet 200 mg PO DAILY RF: 0 Discharge Orders: Discharge Order (Routine); Ordered 03/16/20 Ordered By: Harsh Arredondo Admission Data Admit Date/Time: 03/15/20 16:44 Attending Provider: Harsh Arredondo Admit Provider: Axel Singh Primary Care Provider: Kai Amador V. Other Providers: Tomas Hernandez Other Interventions: Discharge Summary Assessment (RN) Last Done: 03/16/20 14:43 DC Date/Time DO NOT enter until pt leaves facility: 03/16/20 17:10 Coding Level of Care Code D/C Day Management >30 mins Diagnoses Diabetic keto-acidosis E10.10 Diabetes mellitus complication detail: without coma Diabetes mellitus type: type 1 URI, acute J06.9 Abdominal pain R10.9 Smokes < 1 pack of cigarettes per day F17.210 GERD with esophagitis K21.0 Diabetic peripheral neuropathy associated with type 1 diabetes mellitus E10.42
[2020-03-16] MEDS ORDERED: INSULIN DETEMIR FLEXPEN/FLEX TOUCH 100 UNITS/ML 3ML SC SCH (21:00)
[2020-03-17] MEDS ORDERED: INSULIN ASPART 100 UNITS/ML 3 ML PEN SC SCH
[2020-03-17] MEDS ORDERED: INSULIN DETEMIR FLEXPEN/FLEX TOUCH 100 UNITS/ML 3ML SC SCH (09:00)
== END 2020-03-16 17:10 | disposition home or self-care (01) | DRG 638 ==
LOC: ED 13:32 → SUATTDRO 16:44 → 1E 16:44

== ENCOUNTER 2020-11-29 16:48 | Inpatient (IN) ==
[2020-11-29] MEDS ORDERED: SODIUM CHLORIDE 0.9% 1000ML 1,000 ML IV SCH ×2 (17:00→22:00)
[2020-11-29] MEDS ORDERED: SODIUM CHLORIDE 0.9% 1000ML 1,000 ML IV ONE ×2 (17:05→20:00)
--- NOTE | 2020-11-29 17:23 | Emergency Department Note ---
Impression & Plan DKA (diabetic ketoacidoses), Acute hyperkalemia ED Provider Note NAME: CRIS HUNG AGE: 45 SEX: F : 1975 ARRIVES VIA: Walk-In INFORMANT: Patient, ED PROVIDER(S): Ken Pimentel DO CHIEF COMPLAINT: Hyperglycemia HPI: The patient is a 45-year-old female who is an insulin-dependent diabetic who presented to the emergency department because of DKA. The patient states that she noticed that her insulin pen was not working as well as usual. She started a new pen approximately 5 days ago. She is noticed polyuria as well as polydipsia. She is also noticed elevation in her blood sugars. She states that she has had generalized weakness. She also notices that she is having generalized pain. She does have chronic pain and states that she has been trying to take her usual pain medication without relief. She denies having any lower extremity swelling. She does complain of chest pain which began 3 days ago. She states the pain is constant. She denies having any headaches or falls. She does complain of generalized weakness especially upon standing. She also notices polyuria. ROS: See above HPI for pertinent positives & negatives. A total of 10 systems reviewed and were otherwise negative. PAST MEDICAL HISTORY: See Below PAST SURGICAL HISTORY: See Below FAMILY HISTORY: See Below SOCIAL HISTORY: See Below HOME MEDICATIONS: See Below ALLERGIES: See Below VITALS: See Below PHYSICAL EXAMINATION: GENERAL: Patient is awake alert in no acute distress patient is resting comfo rtably and showing no signs of anxiety EYES: The conjunctivae are clear. The pupils are round and reactive. EARS, NOSE, MOUTH AND THROAT: The nose is without any evidence of any deformity. Mucous membranes are dry. NECK: The neck is nontender and supple. RESPIRATORY: Normal respiratory effort is noted there is no evidence of wheezing rhonchi or rales CARDIOVASCULAR: Tachycardic and regular heart sounds were noted to auscultation. No definite murmur was noted. GASTROINTESTINAL: The abdomen is soft. Abdomen is nontender. MUSCULOSKELETAL/EXTREMITIES: There is no evidence of gross deformity full range of motion is noted in the hips and shoulders. SKIN: There is no obvious evidence of any rash. There are no petechiae, pallor or cyanosis noted. NEUROLOGIC: Patient is awake alert and oriented x3 strength is symmetric patellar reflexes are 2+ bilaterally MEDICAL DECISION MAKING: The patient is a 45-year-old female who presented to the emergency department for an evaluation of DKA. The patient was noted to have very elevated blood sugar. She was acidotic and had a large beta hydroxybutyrate level. She was treated with multiple liters of normal saline solution. She was also treated with IV insulin in the emergency department. She requested medicine for pain and was treated with morphine. She was also given Zofran and Phenergan. She was reevaluated multiple times. She continued to have some for chronic pain. Her vital signs slowly improved but she still had significant tachycardia. I discussed the patient's condition with the on-call [facility] hospitalist group. They have agreed to evaluate the patient in the emergency department for further management and disposition. Triage Nursing notes reviewed. Prior medical records reviewed Vital Signs: reviewed and remarkable for tachycardia and tachypnea. Differential diagnosis: Infection, dehydration, metabolic abnormality, hypo/hyperglycemia, electrolyte disturbance, anemia, hypoxia, cardiac sources, intracerebral event, toxicologic, neurologic, as well as other pathologies. ER treatment provided: See below Diagnostics interpreted by me: ECG: EKG was obtained in the emergency department. My interpretation is sinus tachycardia 120 bpm. There is no ectopy. There was no acute ST segment abnormalities noted. Peak T waves were noted in the anterior leads. This was compared to a tracing from March 152019. The T wave abnormalities are new compared to the earlier tracing. Otherwise no specific changes were noted. Cardiac Monitoring: An order was placed for continuous cardiac monitoring. The monitor shows a rate of 120 bpm with sinus tachycardia rhythm. Laboratory studies: As stated above and show below. Imaging studies: See below Consultation(s): 2030: The case was discussed with the [facility] hospitalist group. They will evaluate the patient in the emergency department for further management and disposition. ED COURSE: Procedures: none PDMP:reviewed and the patient's chronic pain medications were reviewed. Critical Care: I have personally spent greater than 55 minutes of critical care time in the direct management of this patient. This includes bedside care, interpretation of diagnostic studies, and testing, discussion with consultants, patient, and fa shadi members, and other required patient management activities. This 55 minutes is in excess of all separately billable procedures. Past Med/Surg History Medical History (Updated 11/29/20 @ 20:36 by Ken Pimentel DO) Abdominal pain Abdominal pain Anxiety Asthma over a year since last use of inhaler Degenerative disc disease Depression Diabetes mellitus type 1 uncontrolled. sliding scale & carb counting Diabetic keto-acidosis Gastroparesis GERD (gastroesophageal reflux disease) Ketoacidosis frequently but last hospitalized Dec 2018 BSG OVER 900 Migraine without aura, not intractable, without status migrainosus Ovarian cyst HX OF Pancreatitis ~2016 Peripheral neuropathy bilateral legs and feet Pneumonia Dec 2018 Post traumatic stress disorder Rectal bleeding Seizure Last seizure ~2012. "pass out" type but not convulsions. no problems since. Steatorrhea Surgical History History of colonoscopy History of esophagogastroduodenoscopy (EGD) History of hemorrhoidectomy History of tonsillectomy History of tooth extraction S/P laparoscopic assisted vaginal hysterectomy (LAVH) Surgical history of tubal ligation clips Family History Mother Family history of diabetes mellitus Diabetes Unknown Diabetes Breast cancer Father Alcohol abuse Uncle Alcohol abuse Grandmother Ovarian cancer Denies family history of Colon cancer Prostate cancer Myocardial infarction Colorectal cancer Social History Smoking Status: Current every day smoker Tobacco Type: Cigarettes Age Started Using Tobacco: 16; packs per day: 1; Years Smoked: 22; Cigarettes Per Day: 20 CIG DAILY; Second Hand Exposure: No; Hx Alcohol Use: No Hx Substance Use: Yes (hx medical marijuana use-has not used since february 2019) Substance Use Type Other:: STOPPED MEDICAL MARIJUANA IN AUGUST Preferred Language: Indian Communication Ability: Effective Visual Impairment: No Limitations Hearing Ability: Normal Loom Stop Checker Required: No Beliefs That Will Affect Care: None marital status: Current Living Situation: Spouse current occupational status: disabled Feels Safe at Home: Yes Childhood Exposure to Second-Hand Smoke: Yes (grandmother) Dental Care, Regularly: Yes Physical Activity Frequency: 3-4 Times per Week Seatbelt Use: always Sunscreen Use: Yes Assistive Devices: Contacts and Glasses Allergies Allergies Allergy/AdvReac Type Severity Reaction Status Date / Time AZO Standard Allergy Intermediate HIVES Verified 11/11/17 13:40 insulin glargine Allergy Intermediate Rash Unverified 10/01/20 14:14 [From Lantus U-100 Insulin] naproxen Allergy Intermediate HIVES & SOB Verified 10/01/20 14:14 phenazopyridine Allergy Intermediate HIVES Verified 10/01/20 14:14 insulin degludec Allergy Mild Rash Verified 10/01/20 14:14 [From Tresiba FlexTouch U-100] sumatriptan Allergy Nausea, Verified 10/01/20 14:14 vomitting, jaw pain, worsening BARNARD nicotine AdvReac Intermediate PATCH = Verified 10/01/20 14:14 SKIN IRRIATION/ITCHINESS-LOCALIZED DERMATITIS varenicline AdvReac Intermediate SEVERE Verified 10/01/20 14:14 DEPRESSION escitalopram [From Lexapro] AdvReac Mild depression Verified 10/01/20 14:14 bupropion [From Wellbutrin] AdvReac Unknown decreased Verified 10/01/20 14:14 libido doxepin AdvReac Unknown Unknown Verified 10/01/20 14:14 paroxetine [From Paxil] AdvReac Unknown decreased Verified 10/01/20 14:14 libido sulfamethoxazole AdvReac Unknown Unknown Verified 10/01/20 14:14 [From Bactrim] trimethoprim [From Bactrim] AdvReac Unknown Unknown Verified 10/01/20 14:14 Home Meds Home Medications Medication Instructions Recorded Confirmed Trulance 3 mg PO QAM PRN #0 11/06/17 10/01/20 ProAir RespiClick 1 inh INHALATION QID PRN 01/18/19 10/01/20 ibuprofen 600 mg PO Q6H PRN 11/21/19 10/01/20 insulin degludec 100 unit/mL (3 20 unit SQ DAILY ml 08/21/20 10/01/20 mL) subcutaneous pen Previous Rx's Medication Instructions Recorded vortioxetine 10 mg tablet 10 mg PO DAILY #30 tab 05/02/20 pantoprazole 40 mg tablet,delayed 40 mg PO DAILY #90 tab 05/16/20 release zolpidem 12.5 mg tablet,extended 12.5 mg PO HS #1 tab 05/16/20 release,multiphase rimegepant 75 mg disintegrating 75 mg PO DAILY PRN 30 Days #8 tab 08/15/20 tablet ondansetron HCl 8 mg tablet 8 mg PO DAILY #30 tab 08/23/20 gabapentin 600 mg tablet 900 mg PO TID #405 tab 08/27/20 Novolog Flexpen U-100 Insulin 100 See Rx Instructions SUBCUT DAILY 09/12/20 unit/mL (3 mL) subcutaneous #30 ml NS MDD 60 units nortriptyline 50 mg capsule 50 mg PO HS #90 cap 10/01/20 tizanidine 4 mg tablet 8 mg PO TID #180 tab 10/31/20 tramadol 50 mg tablet 50 mg PO BID PRN #60 tab 11/20/20 Results & Data (ED) Vital Signs Vital Signs - 24 hr 11/29/20 16:49 11/29/20 17:45 11/29/20 17:49 Temperature 36.4 C L Temperature Source Skin Pulse Rate 124 H Pulse Rate [Apical] 111 H Pulse Rate from SpO2 Sensor Respiratory Rate 16 18 Respiratory Effort / Characteristics Non-Labored Respiratory Depth Normal Blood Pressure 138/81 Blood Pressure [Left Arm] 130/64 Blood Pressure Mean 100 Blood Pressure Mean [Left Arm] 86 Pulse Oximetry 99 100 97 Oxygen Delivery Method Room Air Room Air Room Air Sepsis Recent Fever Within 48 Hours No Sepsis New/Unexplained Change in Mental Status N/A Sepsis Action Taken by Nursing No Action Required 11/29/20 19:00 Temperature Temperature Source Pulse Rate 121 H Pulse Rate [Apical] Pulse Rate from SpO2 Sensor 122 H Respiratory Rate 30 H Respiratory Effort / Characteristics Respiratory Depth Blood Pressure 115/72 Blood Pressure [Left Arm] Blood Pressure Mean 106 Blood Pressure Mean [Left Arm] Pulse Oximetry 99 Oxygen Delivery Method Room Air Sepsis Recent Fever Within 48 Hours Sepsis New/Unexplained Change in Mental Status Sepsis Action Taken by Snf Medications Current Medication List: was personally reviewed by me Laboratory Data Attestation: I reviewed the patient's lab results. Result diagrams: 11/29/20 17:46 11/29/20 19:10 Lab Results 11/29/20 11/29/20 11/29/20 Range/Units 17:46 17:46 17:46 WBC 12.97 H (4.8-10.8) K/uL RBC 4.87 (4.2-5.4) M/uL Hgb 16.6 H (12.0-16.0) g/dL Hct 49.8 H (37-47) % MCV 102.3 H (80-100) fL MCH 34.1 H (25-34) pg MCHC 33.3 (32-36) g/dL RDW Std Deviation 47.6 H (36.4-46.3) fL RDW Coeff of Korey 12.8 (11.5-14.5) % Plt Count 415 H (130-400) K/uL MPV 11.7 H (7.4-10.4) fL Immature Gran % (Auto) 0.5 % Neut % (Auto) 59.9 % Lymph % (Auto) 28.7 % Surry % (Auto) 8.8 % Eos % (Auto) 1.7 % Baso % (Auto) 0.4 % Neut # (Auto) 7.77 H (1.4-6.5) K/uL Lymph # (Auto) 3.72 H (1.2-3.4) K/uL Surry # (Auto) 1.14 H (0.11-0.59) K/uL Eos # (Auto) 0.22 (0-0.5) K/uL Baso # (Auto) 0.05 (0-0.2) K/uL Immature Gran # (Auto) 0.07 H (0.00-0.02) K/uL PT Cancelled INR Cancelled APTT Cancelled PTT Ratio Cancelled VBG pH (7.36-7.41) VBG pCO2 (38-50) mmHg VBG pO2 mmHg VBG HCO3 mmol/L VBG O2 Saturation % VBG Base Excess mEq/L Barometric Pressure mm/Hg Sodium Cancelled Potassium Cancelled Chloride Cancelled Carbon Dioxide Cancelled Anion Gap Cancelled BUN Cancelled Creatinine Cancelled Est Cr Clr Drug Dosing Cancelled Est GFR ( Amer) Cancelled Est GFR (Non-Af Amer) Cancelled BUN/Creatinine Ratio Cancelled Glucose Cancelled POC Glucose (70-99) mg/dl Calcium Cancelled Magnesium Cancelled Total Bilirubin Cancelled AST Cancelled ALT Cancelled Alkaline Phosphatase Cancelled Troponin I Cancelled Total Protein Cancelled Albumin Cancelled Globulin Cancelled Albumin/Globulin Ratio Cancelled Beta-Hydroxybutyric Acd Cancelled TSH Cancelled HCG, Qual (Negative) SARS-CoV-2 Ag (Rapid) (Negative) 11/29/20 11/29/20 11/29/20 Range/Units 17:46 17:46 18:19 WBC (4.8-10.8) K/uL RBC (4.2-5.4) M/uL Hgb (12.0-16.0) g/dL Hct (37-47) % MCV (80-100) fL MCH (25-34) pg MCHC (32-36) g/dL RDW Std Deviation (36.4-46.3) fL RDW Coeff of Korey (11.5-14.5) % Plt Count (130-400) K/uL MPV (7.4-10.4) fL Immature Gran % (Auto) % Neut % (Auto) % Lymph % (Auto) % Surry % (Auto) % Eos % (Auto) % Baso % (Auto) % Neut # (Auto) (1.4-6.5) K/uL Lymph # (Auto) (1.2-3.4) K/uL Surry # (Auto) (0.11-0.59) K/uL Eos # (Auto) (0-0.5) K/uL Baso # (Auto) (0-0.2) K/uL Immature Gran # (Auto) (0.00-0.02) K/uL PT INR APTT PTT Ratio VBG pH 7.24 L (7.36-7.41) VBG pCO2 31 L (38-50) mmHg VBG pO2 35 mmHg VBG HCO3 13 mmol/L VBG O2 Saturation < 60.0 % VBG Base Excess -13.2 mEq/L Barometric Pressure 738.5 mm/Hg Sodium Potassium Chloride Carbon Dioxide Anion Gap BUN Creatinine Est Cr Clr Drug Dosing Est GFR ( Amer) Est GFR (Non-Af Amer) BUN/Creatinine Ratio Glucose POC Glucose > 600 H* (70-99) mg/dl Calcium Magnesium Total Bilirubin AST ALT Alkaline Phosphatase Troponin I Total Protein Albumin Globulin Albumin/Globulin Ratio Beta-Hydroxybutyric Acd TSH HCG, Qual Negative (Negative) SARS-CoV-2 Ag (Rapid) (Negative) 11/29/20 11/29/20 11/29/20 Range/Units 19:10 19:10 20:15 WBC (4.8-10.8) K/uL RBC (4.2-5.4) M/uL Hgb (12.0-16.0) g/dL Hct (37-47) % MCV (80-100) fL MCH (25-34) pg MCHC (32-36) g/dL RDW Std Deviation (36.4-46.3) fL RDW Coeff of Korey (11.5-14.5) % Plt Count (130-400) K/uL MPV (7.4-10.4) fL Immature Gran % (Auto) % Neut % (Auto) % Lymph % (Auto) % Surry % (Auto) % Eos % (Auto) % Baso % (Auto) % Neut # (Auto) (1.4-6.5) K/uL Lymph # (Auto) (1.2-3.4) K/uL Surry # (Auto) (0.11-0.59) K/uL Eos # (Auto) (0-0.5) K/uL Baso # (Auto) (0-0.2) K/uL Immature Gran # (Auto) (0.00-0.02) K/uL PT Cancelled INR Cancelled APTT Cancelled PTT Ratio Cancelled VBG pH (7.36-7.41) VBG pCO2 (38-50) mmHg VBG pO2 mmHg VBG HCO3 mmol/L VBG O2 Saturation % VBG Base Excess mEq/L Barometric Pressure mm/Hg Sodium 130 L Potassium 6.0 H Chloride 100 Carbon Dioxide 10 L Anion Gap 20.0 H BUN 18 Creatinine 1.15 Est Cr Clr Drug Dosing 53.4 Est GFR ( Amer) 66.5 Est GFR (Non-Af Amer) 57.4 BUN/Creatinine Ratio 15.9 Glucose 622 H* POC Glucose (70-99) mg/dl Calcium 9.3 Magnesium 2.1 Total Bilirubin 0.6 AST 15 ALT 20 Alkaline Phosphatase 130 H Troponin I Total Protein 7.9 Albumin 4.1 Globulin 3.8 Albumin/Globulin Ratio 1.1 Beta-Hydroxybutyric Acd 93.87 H TSH HCG, Qual (Negative) SARS-CoV-2 Ag (Rapid) Negative (Negative) Administered Medications Sodium Chloride (Nss 1000ml) 1,000 mls @ 999 mls/hr IV .Q1H1M ONE Stop: 11/29/20 21:00 Last Admin: 11/29/20 20:18 Dose: 999 mls/hr Documented by: [id number] Discontinued Medications Sodium Chloride (Nss 1000ml) 1,000 mls @ 999 mls/hr IV .Q1H1M DREA Stop: 11/29/20 18:00 Last Infusion: 01/07/21 20:00 Dose: 0 mls/hr Documented by: [id number] Admin: 11/29/20 17:50 Dose: 999 mls/hr Documented by: [id number] Sodium Chloride (Nss 1000ml) 1,000 mls @ 999 mls/hr IV .Q1H1M ONE Stop: 11/29/20 18:05 Last Infusion: 11/29/20 19:26 Dose: 0 mls/hr Documented by: [id number] Admin: 11/29/20 17:50 Dose: 999 mls/hr Documented by: [id number] Promethazine HCl (Phenergan) 12.5 mg in 50.5 mls @ 202 mls/hr IV NOW STA Stop: 11/29/20 20:26 Last Admin: 11/29/20 20:17 Dose: 202 mls/hr Documented by: [id number] Morphine Sulfate (Morphine Sulfate 4 Mg/Ml 1 Ml Carp\\Vial) 4 mg IV NOW STA Stop: 11/29/20 18:24 Last Admin: 11/29/20 18:32 Dose: 4 mg Documented by: [id number] Ondansetron HCl (Ondansetron Inj 2 Mg/Ml 2 Ml Vial) 4 mg IV NOW STA Stop: 11/29/20 18:12 Last Admin: 11/29/20 18:16 Dose: 4 mg Documented by: [id number] Imaging Data Radiologist's Impression: Patient: CRIS HUNG Admit Date: 11/29/20 MR#: [id number] Address1: [address] [place] [address] Acct ID:[id number] Address2: Date: 1975 [facility] Zip: [place] [address] Age: 45 Location: ED Sex: F Room/Bed: Att Phy: Diagnosis: DEHYDRATION Tejal Phy: RV. Horner MD Service Date: 11/29/20 [facility] Phy: Interpreting Phy: Jared Jane MD Admit Phy: Ordering Phy: Ken Pimentel DO cc: ~ SINGLE VIEW CHEST CLINICAL HISTORY: Generalized weakness. FINDINGS: An AP, portable, upright chest radiograph is compared to study dated 03/15/2020. The cardiomediastinal silhouette is unremarkable. The lungs and pleural spaces are clear. No pneumothorax is seen. The bony thorax is grossly intact. IMPRESSION: No active disease in the chest. ACT 112: Negative or not required by law. Electronically signed by: Jared Jane M.D. 11/29/2020 5:30 PM Dictated: 11/29/201729 Transcribed: 11/29/201729 Blood Pressure Blood Pressure Findings: Normal blood pressure Discharge Plan Visit Data Chief Complaint: Dehydration Stated Complaint: DEHYDRATION ED Provider: Ken Pimentel Discharge Problem: DKA (diabetic ketoacidoses), Acute hyperkalemia Patient Disposition: Being Evaluated by Hospitalist Condition: Good Forms Stand Alone Forms: [facility] [place] [facility] Prescriptions Prescriptions: No Action Trulance 3 mg Tablet 3 mg PO QAM PRN (Reason: Constipation) Qty: 0 RF: 0 Trintellix 10 mg tablet 10 mg PO DAILY Qty: 30 RF: 2 Nurtec ODT 75 mg tablet,disintegrating 75 mg PO DAILY PRN (Reason: migraine headache) 30 Days Qty: 8 RF: 0 Hold Instructions: does not take - not helpfull ondansetron HCl [Zofran] 8 mg tablet 8 mg PO DAILY Qty: 30 RF: 5 gabapentin [Neurontin] 600 mg tablet 900 mg PO TID Qty: 405 RF: 1 insulin aspart U-100 [Novolog Flexpen U-100 Insulin] 100 unit/mL (3 mL) insulin pen See Rx Instructions SUBCUT DAILY MDD 60 units Qty: 30 RF: 5 tizanidine [Zanaflex] 4 mg tablet 8 mg PO TID Qty: 180 RF: 1 tramadol [Ultram] 50 mg tablet 50 mg PO BID PRN (Reason: pain) Qty: 60 RF: 0 pantoprazole [Protonix] 40 mg tablet,delayed release (DR/EC) 40 mg PO DAILY Qty: 90 RF: 3 zolpidem [Ambien CR] 12.5 mg tablet,ext release multiphase 12.5 mg PO HS Qty: 1 RF: 0 nortriptyline 50 mg capsule 50 mg PO HS Qty: 90 RF: 3 Tresiba FlexTouch U-100 100 unit/mL (3 mL) insulin pen 20 unit SQ DAILY RF: 0 ProAir RespiClick 90 mcg/actuation Aerosol Powdr Breath Activated 1 inh INHALATION QID PRN (Reason: SHORT OF BREATH) RF: 0 ibuprofen 200 mg Tablet 600 mg PO Q6H PRN (Reason: Pain) RF: 0 Referrals Referrals: Kai Amador MD [Primary Care Provider] - Discharge Problem: DKA (diabetic ketoacidoses) Qualifiers: Diabetes mellitus type: type 1 Diabetes mellitus complication detail: without coma Qualified Code(s): E10.10 - Type 1 diabetes mellitus with ketoacidosis without coma
--- NOTE | 2020-11-29 17:32 | XRay Report ---
SINGLE VIEW CHEST CLINICAL HISTORY: Generalized weakness. FINDINGS: An AP, portable, upright chest radiograph is compared to study dated 03/15/2020. The cardiom ediastinal silhouette is unremarkable. The lungs and pleural spaces are clear. No pneumothorax is see n. The bony thorax is grossly intact. IMPRESSION: No active disease in the chest. ACT 112: Negative or not required by law. Electronically signed by: Jared Jane M.D. 11/29/2020 5:30 PM
[2020-11-29 17:57] LABS: Basophils # (auto) 0.05 K/uL (0-0.2); Basophils % (auto) 0.4 %; Eosinophils # (auto) 0.22 K/uL (0-0.5); Eosinophils % (auto) 1.7 %; Hematocrit (blood only) 49.8 % (37-47); Hemoglobin 16.6 g/dL (12.0-16.0); Immature Granulocytes # (auto) 0.07 K/uL (0.00-0.02); Immature Granulocytes % (auto) 0.5 %; Lymphocytes # (auto) 3.72 K/uL (1.2-3.4); Lymphocytes % (auto) 28.7 %; Mean Corpuscular Hemoglobin 34.1 pg (25-34); Mean Corpuscular Hgb Conc 33.3 g/dL (32-36); Mean Corpuscular Volume 102.3 fL (80-100); Mean Platelet Volume 11.7 fL (7.4-10.4); Monocytes # (auto) 1.14 K/uL (0.11-0.59); Monocytes % (auto) 8.8 %; Neutrophils # (auto) 7.77 K/uL (1.4-6.5); Neutrophils % (auto) 59.9 %; Platelet Count 415 K/uL (130-400); RDW Coefficient of Variation 12.8 % (11.5-14.5); RDW Standard Deviation 47.6 fL (36.4-46.3); Red Blood Count 4.87 M/uL (4.2-5.4); White Blood Count 12.97 K/uL (4.8-10.8)
[2020-11-29 18:02] LABS: Base Excess VBG -13.2 mEq/L; HCO3 VBG 13 mmol/L; PCO2 VBG 31 mmHg (38-50); PO2 VBG 35 mmHg; pH VBG 7.24 (7.36-7.41)
[2020-11-29 18:03] LABS: Oxygen Saturation VBG < 60.0 %
[2020-11-29] MEDS ORDERED: ONDANSETRON INJ 2 MG/ML 2 ML VIAL IV STA (18:11)
[2020-11-29 18:20] LABS: Pregnancy Test, Serum Negative (Negative)
[2020-11-29] MEDS ORDERED: MoRPHine SULFATE 4 MG/ML 1 ML CARP\\VIAL IV STA (18:23)
[2020-11-29 19:52] LABS: Albumin Globulin Ratio 1.1 (0.9-2); Albumin Level 4.1 gm/dl (3.4-5.0); BUN Creatinine Ratio 15.9 (10-20); Bilirubin,Total 0.6 mg/dl (0.2-1); Calcium 9.3 mg/dl (8.5-10.1); Creatinine Clr Calc Pharmacy 53.4 ml/min; Est GFR (African American) 66.5; Est GFR (Non-African American) 57.4; Globulin 3.8 gm/dl (2.5-4.0); Magnesium 2.1 mg/dl (1.8-2.4); Total Protein 7.9 gm/dl (6.4-8.2)
[2020-11-29] MEDS ORDERED: GLUCAGON FOR INJ 1 MG VIAL SQ PRN (20:01)
[2020-11-29] MEDS ORDERED: GLUCOSE 40% GEL 15 GM TUBE PO PRN (20:01)
[2020-11-29] MEDS ORDERED: DEXTROSE 50% 50 ML SYRINGE IV PRN (20:01)
[2020-11-29] MEDS ORDERED: ED DKA INSULIN DRIP ONE (20:01)
[2020-11-29] MEDS ORDERED: CARBOHYDRATES FOR HYPOGLYCEMIA PO PRN (20:01)
[2020-11-29] MEDS ORDERED: DKA GOAL RANGE 150-250 mg/dl ONE (20:01)
[2020-11-29] MEDS ORDERED: GLUCOSE 10 TABS/TUBE PO PRN (20:01)
[2020-11-29] MEDS ORDERED: PROMETHAZINE 12.5 MG/50.5 ML BAG IV STA (20:12)
[2020-11-29 20:14] LABS: Beta-Hydroxybutyrate 93.87 mg/dl (0.2-2.81)
[2020-11-29] MEDS ORDERED: INSULIN REGULAR 250 UNITS in SODIUM CHLORIDE 0.9% 247.5 ML IV SCH (20:15)
[2020-11-29] MEDS ORDERED: NovoLIN-R BOLUS FROM BAG IV ONE (20:30)
[2020-11-29 20:49] LABS: Partial Thromboplastin Time 26.8 Seconds (21.0-31.0); Prothrombin Time 10.5 Seconds (9.0-12.0)
--- NOTE | 2020-11-29 20:55 | History & Physical Report ---
Date of Service November 29, 2020 Assessment & Plan (1) DKA (diabetic ketoacidoses): Admission and Anticipated Discharge Date Admission Date: Patient does not have any obvious infectious signs or symptoms that would suggest a trigger for her diabetic ketoacidosis. Certainly this condition could be from medication noncompliance or from a malfunctioned insulin pen. Nonetheless the patient will require admission and we will proceed as follows: We will initiate an insulin drip and continue hydration with IV fluids. We will follow frequent labs and add potassium as well as glucose to her intravenous fluids when appropriate. Once her anion gap closes we will plan on transitioning her back to subcutaneous insulin. Antiemetics will be provided for her nausea. Utilize Lovenox for DVT prevention The patient will be a level 1 full code History of Present Illness Chief Complaint: My sugars are running high Primary Care Provider: Kai Amador MD This is a 45-year-old patient with a longstanding history of diabetes. Patient states that she was diagnosed with diabetes in 2010 at the age of 25. He said this was initially discovered on preoperative labs when she was undergoing a hysterectomy and she was initially tried with oral diabetic agents which were unsuccessful and she has since been transitioned to insulin. Records were reviewed and patient follows with [facility]. She has had frequent bouts of diabetic ketoacidosis. Her last visit with her primary care physician was in August 2020 at which time her diabetes was addressed. Her diabetes is noted to be poorly controlled with her sugars running between 205 100. As a result of her diabetes she suffers from neuropathy as well as gastroparesis. Hemoglobin A1c is consistently reported over 10. Concerning her diabetes I did ask her if she sees a rn surgical pcu regularly which she does not. However, she does not report any issues with foot wounds. Patient presented to [facility] today as she was in DKA. Patient claims that she is compliant with her insulin and feels that she is now in DKA due to a defective insulin pen. She notes that this may have been the case for the last 5 days. Questioned her about underlying infections that may have triggered her DKA and she denies any dysuria, cough, shortness of breath, fevers, shakes, chills, or abdominal pain. At the present time the patient complains of nausea vomiting and she notes that the nausea and vomiting ensued after she developed DKA. She notes that this was not present prior. In addition she complains of just generalized body aches. She denies any chest pain. In the emergency department the patient did undergo a chest x-ray that was negative for pneumonia or CHF. Labs included a CBC with a white blood cell count was 12.9 hemoglobin and hematocrit were 16.6 and 49.8. Platelet count was noted to be 4-15,000. A VBG revealed a pH of 7.24. Chemistry profile showed sodium was 130 potassium 6.0. UN and creatinine were both within the normal range. Her anion gap was elevated at 20. Glucose level was 622. In addition patient had a Covid test that was negative. Since arrival to the emergency department she has received 3 L of injury intravenous fluid for hydration purposes and insulin drip has been ordered which is about to be initiated. At the time of my exam the patient was in no overt distress but did appear to be uncomfortable. Allergies Allergy/AdvReac Type Severity Reaction Status Date / Time AZO Standard Allergy Intermediate HIVES Verified 11/11/17 13:40 insulin glargine Allergy Intermediate Rash Unverified 11/29/20 22:26 [From Lantus U-100 Insulin] naproxen Allergy Intermediate HIVES & SOB Verified 11/29/20 22:26 phenazopyridine Allergy Intermediate HIVES Verified 11/29/20 22:26 insulin degludec Allergy Mild Rash Verified 11/29/20 22:26 [From Tresiba FlexTouch U-100] sumatriptan Allergy Nausea, Verified 11/29/20 22:26 vomitting, jaw pain, worsening BARNARD nicotine AdvReac Intermediate PATCH = Verified 11/29/20 22:26 SKIN IRRIATION/ITCHINESS-LOCALIZED DERMATITIS varenicline AdvReac Intermediate SEVERE Verified 11/29/20 22:26 DEPRESSION escitalopram [From Lexapro] AdvReac Mild depression Verified 11/29/20 22:26 bupropion [From Wellbutrin] AdvReac Unknown decreased Verified 11/29/20 22:26 libido doxepin AdvReac Unknown Unknown Verified 10/01/20 14:14 paroxetine [From Paxil] AdvReac Unknown decreased Verified 10/01/20 14:14 libido sulfamethoxazole AdvReac Unknown Unknown Verified 10/01/20 14:14 [From Bactrim] trimethoprim [From Bactrim] AdvReac Unknown Unknown Verified 10/01/20 14:14 Home Medications Medication Instructions Recorded Confirmed Type Trulance 3 mg PO QAM PRN #0 11/06/17 11/29/20 History ProAir RespiClick 1 inh INHALATION QID PRN 01/18/19 11/29/20 History ibuprofen 600 mg PO Q6H PRN 11/21/19 11/29/20 History pantoprazole 40 mg tablet,delayed 40 mg PO DAILY #90 tab 05/16/20 11/29/20 Rx release zolpidem 12.5 mg tablet,extended 12.5 mg PO HS #1 tab 05/16/20 11/29/20 Rx release,multiphase rimegepant 75 mg disintegrating 75 mg PO DAILY PRN 30 Days #8 tab 08/15/20 11/29/20 Rx tablet insulin degludec 100 unit/mL (3 20 unit SQ DAILY ml 08/21/20 11/29/20 History mL) subcutaneous pen Novolog Flexpen U-100 Insulin 100 See Rx Instructions SUBCUT DAILY 09/12/20 11/29/20 Rx unit/mL (3 mL) subcutaneous #30 ml NS MDD 60 units nortriptyline 50 mg capsule 50 mg PO HS #90 cap 10/01/20 11/29/20 Rx tizanidine 4 mg tablet 8 mg PO TID #180 tab 10/31/20 11/29/20 Rx tramadol 50 mg tablet 50 mg PO BID PRN #60 tab 11/20/20 11/29/20 Rx gabapentin [Neurontin] 600 mg PO TID 11/29/20 11/29/20 History ondansetron HCl 8 mg PO UD 11/29/20 11/29/20 History Past Med/Surg History Medical History Abdominal pain Abdominal pain Anxiety Asthma over a year since last use of inhaler Degenerative disc disease Depression Diabetes mellitus type 1 uncontrolled. sliding scale & carb counting Diabetic keto-acidosis Gastroparesis GERD (gastroesophageal reflux disease) Ketoacidosis frequently but last hospitalized Dec 2018 BSG OVER 900 Migraine without aura, not intractable, without status migrainosus Ovarian cyst HX OF Pancreatitis ~2016 Peripheral neuropathy bilateral legs and feet Pneumonia Dec 2018 Post traumatic stress disorder Rectal bleeding Seizure Last seizure ~2012. "pass out" type but not convulsions. no problems since. Steatorrhea Surgical History History of colonoscopy History of esophagogastroduodenoscopy (EGD) History of hemorrhoidectomy History of tonsillectomy History of tooth extraction S/P laparoscopic assisted vaginal hysterectomy (LAVH) Surgical history of tubal ligation clips Family History Mother Family history of diabetes mellitus Diabetes Unknown Diabetes Breast cancer Father Alcohol abuse Uncle Alcohol abuse Grandmother Ovarian cancer Denies family history of Colon cancer Prostate cancer Myocardial infarction Colorectal cancer Social History Smoking Status: Current every day smoker Tobacco Type: Cigarettes Age Started Using Tobacco: 16; packs per day: 1; Years Smoked: 22; Cigarettes Per Day: 1 PPD; Second Hand Exposure: No; Hx Alcohol Use: No Hx Substance Use: No Preferred Language: Irish Communication Ability: Effective Visual Impairment: No Limitations Hearing Ability: Normal Billet Inspector Required: No Beliefs That Will Affect Care: None marital status: Current Living Situation: Spouse current occupational status: disabled Other Information That Helps Us Care for You: No Feels Safe at Home: Yes Safety Concerns: Feels Safe At This Time Childhood Exposure to Second-Hand Smoke: Yes (grandmother) Dental Care, Regularly: Yes Physical Activity Frequency: 3-4 Times per Week Seatbelt Use: always Sunscreen Use: Yes Assistive Devices: None Review of Systems Constitutional: + body aches; no fever Eyes: no diplopia Ear, Nose, Mouth, Throat: no ear pain Respiratory: no cough and no dyspnea Cardiovascular: no chest pain Gastrointestinal: + abdominal pain, + nausea and + vomiting Genitourinary: no dysuria Musculoskeletal: + body aches Integumentary: no rash Neurologic: no localized weakness Physical Exam Constitutional: + thin; no acute distress Eyes: no corneal abnormality ENMT: Ears: no hearing impairment Mucous membranes are noted to be dry. Neck: trachea midline Respiratory: + tachypneic; no respiratory distress and no labored breathing Cardiovascular: Rate/Rhythm: regular rate and regular rhythm Gastrointestinal (Abdomen): Percussion/Palpation: + abdomen tender (Generalized tenderness) and abdomen soft Musculoskeletal: Feet were examined and no foot wounds were noted. Skin: no rashes, warm and dry Neurologic: moves all extremities No focal neurologic deficits Psychiatric: Orientation: alert and oriented x 3 Affect: + anxious affect Results & Data Results & Data ([place]) Vital Signs (Past 12 Hours) Vital Signs Temp Pulse Pulse Resp BP BP Pulse Ox 11/29/20 19:00 121 H 30 H 115/72 99 11/29/20 17:49 97 11/29/20 17:45 111 H 18 130/64 100 11/29/20 16:49 36.4 C L 124 H 16 138/81 99 Supervising Physician Co-Signing Physician Notes Attending addendum: I have physically seen this patient, have supervised the AMY's activities, and agree with the H&P unless as otherwise noted. Assessment and Plan: DKA- Patient reports that blood sugars became elevated when she changed over to a new pen for her short acting insulin and feels the pen was not working well. Previous episodes of DKA have been associated with Infection Such As UTIs. Continue insulin drip at 5.5 as begun in the ED. We will more aggressively rehydrate with IV fluids, increasing rate to 250 mils per hour. We will be checking Accu-Cheks q. 30 minutes 1 hour while in the ED. Repeat basic metabolic panel in 4 hours resulted in improved anion gap from 19 down to 10. At this time, insulin drip was stopped, patient was given Lantus insulin 20 units subcu, and placed on every 4 hour scale. Peripheral neuropathy- Resume gabapentin and patient is able to take oral Regarding GERD- hold pantoprazole for now, and placed on famotidine 20 mg IV every 12 hours Remaining orders and notations as noted PG Care Time/CCT Total # of Minutes Spent Total Time Spent with Patient: Total time spent is greater than 50% in coordination of care (as documented) at patient's floor/unit and/or counseling patient: Coding Level of Care Code 20056 Initial Inpt Care Lvl 3 Diagnoses DKA (diabetic ketoacidoses) E10.10 Diabetes mellitus complication detail: without coma Diabetes mellitus type: type 1 (1) DKA (diabetic ketoacidoses) Diabetes mellitus complication detail: without coma Diabetes mellitus type: type 1 Qualified Code(s): E10.10 - Type 1 diabetes mellitus with ketoacidosis without coma
[2020-11-29] MEDS ORDERED: INSULIN ASPART 100 UNITS/ML 3 ML PEN SC SCH (21:00)
[2020-11-30] MEDS ORDERED: DEXTROSE 50% 50 ML SYRINGE IV PRN (00:05)
[2020-11-30] MEDS ORDERED: INSULIN GLARGINE SOLOSTAR 100 UNITS/ML 3 ML PEN SC STA (00:05)
[2020-11-30] MEDS ORDERED: GLUCAGON FOR INJ 1 MG VIAL SQ PRN (00:05)
[2020-11-30] MEDS ORDERED: GLUCOSE 40% GEL 15 GM TUBE PO PRN (00:05)
[2020-11-30] MEDS ORDERED: GLUCOSE 10 TABS/TUBE PO PRN (00:05)
[2020-11-30] MEDS ORDERED: CARBOHYDRATES FOR HYPOGLYCEMIA PO PRN (00:05)
[2020-11-30 00:25] LABS: iSTAT Creatinine 0.6 mg/dl (0.6-1.3); iSTAT Hemoglobin 15.3 g/dl (12.0-16.0); iSTAT Ionized Calcium 1.2 mmol/l (1.12-1.32); iSTAT Potassium 4.4 mmol/L (3.3-5.0)
[2020-11-30 00:51] LABS: BUN Creatinine Ratio 16.1 (10-20); Calcium 7.7 mg/dl (8.5-10.1); Creatinine Clr Calc Pharmacy 68.3 ml/min; Est GFR (African American) 89.5; Est GFR (Non-African American) 77.2; Magnesium 1.8 mg/dl (1.8-2.4)
[2020-11-30 00:52] LABS: Phosphorus 1.7 mg/dl (2.5-4.9); Potassium 4.4 mmol/L (3.5-5.1)
[2020-11-30] MEDS ORDERED: NORMOSOL-R 1,000 ML IV SCH (00:54)
[2020-11-30] MEDS ORDERED: PENDING 1/2NSS+20mEq KCL IVF SCH (00:54)
[2020-11-30] MEDS ORDERED: ACETAMINOPHEN 1,000 MG/100 ML VIAL IV PRN (00:54)
[2020-11-30] MEDS ORDERED: DC ALL PREVIOUSLY ORDERED DIABETES MEDS ONE (00:54)
[2020-11-30] MEDS: INSULIN ASPART 100 UNITS/ML 3 ML PEN SC SCH ×8 (01:00→21:18)
[2020-11-30] MEDS ORDERED: SODIUM CHLOR 0.45% + 20MEQ KCL 20 MEQ/1,000 ML BAG IV SCH (01:15)
[2020-11-30] MEDS ORDERED: MoRPHine SULFATE 2 MG/ML CARP IV PRN (01:18)
[2020-11-30 01:37] LABS: Calcium 7.3 mg/dl (8.5-10.1); Creatinine Clr Calc Pharmacy 76.8 ml/min; Est GFR (African American) 103.2; Magnesium 1.9 mg/dl (1.8-2.4); Potassium 4.2 mmol/L (3.5-5.1)
[2020-11-30 01:38] LABS: Phosphorus 1.9 mg/dl (2.5-4.9)
[2020-11-30] MEDS: ONDANSETRON INJ 2 MG/ML 2 ML VIAL IV SCH ×5 (01:42→23:16)
[2020-11-30] MEDS ORDERED: PHARMACY GLYCEMIC MGMT CONSULT PRN (01:58)
[2020-11-30] MEDS: PROMETHAZINE HCL 6.25 MG in SODIUM CHLORIDE 0.9% 50 ML IV PRN ×3 (03:00→16:00)
[2020-11-30] MEDS: MoRPHine SULFATE 4 MG/ML 1 ML CARP\\VIAL IV PRN ×5 (03:09→20:18)
[2020-11-30] MEDS: PENDING D5 1/2NS+20mEq KCL IVF SCH ×5 (03:22→07:01)
[2020-11-30 07:25] LABS: BUN Creatinine Ratio 14.5 (10-20); Calcium 7.6 mg/dl (8.5-10.1); Est GFR (African American) 124.9; Est GFR (Non-African American) 107.8; Magnesium 1.8 mg/dl (1.8-2.4); Phosphorus 1.8 mg/dl (2.5-4.9); Potassium 4.3 mmol/L (3.5-5.1)
[2020-11-30] MEDS ORDERED: D5W AND 1/2NSS + 20MEQ KCL 20 MEQ/1,000 ML BAG IV SCH (08:00)
[2020-11-30 08:15] LABS: Estimated Average Glucose 295 mg/dl; Hemoglobin A1C 11.9 % (4.5-5.6)
[2020-11-30 10:38] LABS: BUN Creatinine Ratio 10.6 (10-20); Calcium 7.6 mg/dl (8.5-10.1); Est GFR (African American) 124.9; Est GFR (Non-African American) 107.8; Magnesium 1.8 mg/dl (1.8-2.4); Phosphorus 1.7 mg/dl (2.5-4.9); Potassium 4.2 mmol/L (3.5-5.1)
--- NOTE | 2020-11-30 11:55 | Electrocardiogram Report ---
Test Reason : Blood Pressure : / mmHG Vent. Rate : 120 BPM Atrial Rate : 120 BPM P-R Int : 138 ms QRS Dur : 080 ms QT Int : 324 ms P-R-T Axes : 079 -18 069 degrees QTc Int : 457 ms Sinus tachycardia Right atrial enlargement Poor R wave progression, consider anterior DC vs. lead placement vs. LVH Abnormal ECG When compared with ECG of 15-MAR-2020 18:21, No significant change was found Confirmed by Ken Connelly ([id number]) on 11/30/2020 11:55:15 AM Referred By: REFERRED SELF Confirmed By:Ken Connelly
--- NOTE | 2020-11-30 14:58 | Pharmacy Report ---
Glycemic Control Consultation - Date of Service November 30, 2020 - Scope Scope: Glycemic Pharmacist consulted for glycemic control and to write orders per [facility] inpatient glycemic control protocol. - Objective Weight: 55.9 kg Accuchecks BSG (last 24hrs): 11/29/20 11/29/20 11/29/20 17:46 18:19 19:10 Glucose Cancelled 622 H* POC Glucose > 600 H* POC Glucose (other) 11/29/20 11/29/20 11/29/20 21:00 21:45 22:42 Glucose POC Glucose 552 H* 494 H* 410 H* POC Glucose (other) 11/29/20 11/30/20 11/30/20 23:49 00:05 00:12 Glucose 241 H POC Glucose 261 H POC Glucose (other) 239 H 11/30/20 11/30/20 11/30/20 00:59 01:09 03:33 Glucose 185 H POC Glucose 185 H 214 H POC Glucose (other) 11/30/20 11/30/20 11/30/20 06:43 08:25 09:58 Glucose 139 H 161 H POC Glucose 176 H POC Glucose (other) 11/30/20 11/30/20 11/30/20 10:08 11:50 14:00 Glucose POC Glucose 165 H 160 H 134 H POC Glucose (other) Laboratory Data (last 24hrs): 11/29/20 11/29/20 11/30/20 17:46 19:10 00:05 Potassium Cancelled 6.0 H 4.4 D Carbon Dioxide Cancelled 10 L 14 L Anion Gap Cancelled 20.0 H 12.0 H Creatinine Cancelled 1.15 0.90 Est Cr Clr Drug Dosing Cancelled 53.4 68.3 Beta-Hydroxybutyric Acd Cancelled 93.87 H 11/30/20 11/30/20 11/30/20 01:09 06:43 09:58 Potassium 4.2 4.3 4.2 Carbon Dioxide 15 L 14 L 13 L Anion Gap 9.0 10.0 13.0 H Creatinine 0.80 0.64 0.64 Est Cr Clr Drug Dosing 76.8 98.0 98.0 Beta-Hydroxybutyric Acd HbA1c: Hemoglobin A1c 11.9 % (4.5-5.6) H 11/29/20 20:23 - Recent Pertinent Medications Outpatient Anti-diabetic Regimen: * Insulin degludec 20 units Daily * Novolog CR of 10 * A1c = 11.9 % 11/29/20 The patient is currently receiving: * Basal insulin: Lantus 20 units SQ x 1 * Correctional Insulin: Novolog Correction per scale ACHS Goal Range: Low 110 mg/dL - High 150 mg/dL Correction Factor: 20 mg/dL/unit * Prandial insulin: Per carb ratio of 1 unit per 10 grams CHO consumed * Oral Agents: Risk Factors for Insulin Resistance: * IVF:D51/2NS @ 125 mL/hr - stopped around noon * Diet: NPO --> T1DM - Assessment & Plan Assessment & Plan: ASSESSMENT: * Ms Sandoval is a 45 y/o F admitted with DKA. Patient's diabetes is not well controlled with HbA1C of 11.9%. * Initially patient was placed on insulin infusion but this was stopped around midnight. * Patient given Lantus 20 units around 0100 and blood sugars have trended downwards to high 100s. * Patient started on Novolog q2 hours as a bridge for treatment of DKA plus D51/2NS + 20 KCL @ 125 mL/hr. PRP at 1000 showed widening gap and worsening metabolic acidosis. * PRP ordered for 1400 showed resolving acidosis so resume ACHS accuchecks plus start Levemir 20 units nightly (give at 2300 tonight to prevent the most overlap). * Overnight checks to ensure patient's BSGs remain stable. PLAN FOR INPATIENT GLYCEMIC CONTROL: * Basal insulin * Levemir 20 units SQ HS * Bolus insulin * NovoLog per scale ACHS or Q6hrs while NPO * Goal Range: Low 110 mg/dL - High 140 mg/dL * Correction Factor: 30 mg/dL/unit * Nutritional / Prandial insulin per carb ratio of 1 unit per 10 grams CHO consumed * Please note that the plan above was derived based on current level of insulin resistance and hospital stress. These recommendations are appropriate for inpatient admission only. Plan of care upon discharge will need to be reassessed to avoid potential outpatient hypo/hyperglycemia. Thank you.
[2020-11-30 15:00] LABS: BUN Creatinine Ratio 9.3 (10-20); Calcium 8.1 mg/dl (8.5-10.1); Creatinine Clr Calc Pharmacy 96.5 ml/min; Est GFR (African American) 124.3; Est GFR (Non-African American) 107.2; Magnesium 1.9 mg/dl (1.8-2.4); Potassium 3.8 mmol/L (3.5-5.1)
[2020-11-30 15:43] LABS: Phosphorus 1.5 mg/dl (2.5-4.9)
[2020-11-30] MEDS ORDERED: POTASSIUM PHOS 3 MMOL/1 ML INFUSION IV STA (16:23)
[2020-11-30] MEDS ORDERED: POTASSIUM PHOSPHATE 24 MMOL in SODIUM CHLORIDE 0.9% 500 ML IV ONE (16:45)
[2020-11-30] MEDS ORDERED: POT PHOSPHATE MONOBASIC W/ SOD TAB PO SCH (17:00)
[2020-11-30] MEDS ORDERED: POTASSIUM CHLORIDE IV SCH (19:15)
[2020-11-30] MEDS ORDERED: INSULIN REGULAR 250 UNITS in SODIUM CHLORIDE 0.9% 247.5 ML IV SCH (19:15)
[2020-11-30] MEDS ORDERED: D5W AND NSS IV SCH (19:15)
[2020-11-30 19:20] LABS: Appearance Urine Cloudy (Clear); Bacteria Urine Automated 1+ (Negative); Bilirubin Urine Negative (Negative); Blood Urine Negative (Negative); Color Urine Yellow; Epithelial Cell Urine Auto >30 /lpf (0-5); Glucose Urine UA 2+ (Negative); Ketones Urine 4+ (Negative); Leukocyte Esterase Urine Negative (Negative); Nitrite Urine Negative (Negative); Protein Urine Trace (Negative); Specific Gravity Urine 1.018 (1.000-1.030); Urobilinogen Urine Negative (Negative); pH Urine 5.5 (4.5-7.5)
[2020-11-30 19:36] LABS: RBC Urine Automated 0-4 /hpf (0-4)
[2020-11-30 20:12] LABS: BUN Creatinine Ratio 7.5 (10-20); Calcium 7.7 mg/dl (8.5-10.1); Creatinine Clr Calc Pharmacy 104.5 ml/min; Est GFR (African American) 127.6; Est GFR (Non-African American) 110.1; Phosphorus 3.1 mg/dl (2.5-4.9); Potassium 4.5 mmol/L (3.5-5.1)
[2020-11-30] MEDS: POTASSIUM CHLORIDE 30 MEQ in D5W AND 1/2NSS 1,000 ML IV SCH (20:17)
--- NOTE | 2020-11-30 22:38 | Hospitalist Progress Note ---
Date of Service November 30, 2020 Assessment & Plan (1) DKA (diabetic ketoacidoses): Patient does not have any obvious infectious signs or symptoms that would suggest a trigger for her diabetic ketoacidosis. Certainly this condition could be from medication noncompliance or from a malfunctioned insulin pen. Nonetheless the patient will require admission and we will proceed as follows: Insulin drip was stopped earlier today. However due to patient being nauseoius, will resume IVF and restart insulin drip. Bicarb also remains low. will be monitoring BMP. Admission and Anticipated Discharge Date Admission Date: November 29, 2020 Subjective Patient reports feeling nausea. Not tolerating her diet. Review of Systems Review of Systems: All systems reviewed & are unremarkable except as noted in HPI & below Physical Exam Physical Exam: Constitutional: + thin; no acute distress Eyes: no corneal abnormality ENMT: Ears: no hearing impairment Mucous membranes are noted to be dry. Neck: trachea midline Respiratory: CTA B/L no respiratory distress and no labored breathing Cardiovascular: Rate/Rhythm: regular rate and regular rhythm Gastrointestinal (Abdomen): Percussion/Palpation:SOFT, NONTENDER Skin: no rashes, warm and dry Neurologic: moves all extremities No focal neurologic deficits Psychiatric: Orientation: alert and oriented x 3 Affect: + anxious affect Results & Data Results & Data ([facility]) Vital Signs (Past 12 Hours) Vital Signs Temp Pulse Pulse Resp BP Pulse Ox 11/30/20 19:00 36.8 C 114 H 12 160/91 H 98 11/30/20 15:55 36.7 C 97 H 18 153/84 H 100 11/30/20 15:52 96 H 11/30/20 11:47 36.8 C 99 H 18 126/80 98 PG Care Time/CCT Total # of Minutes Spent Total Time Spent with Patient: Total time spent is greater than 50% in coordination of care (as documented) at patient's floor/unit and/or counseling patient: Coding Level of Care Code 19684 Subseq Hosp Care Lvl 3 Diagnoses DKA (diabetic ketoacidoses) E10.10 Diabetes mellitus complication detail: without coma Diabetes mellitus type: type 1 Time Spent (min) 35 (1) DKA (diabetic ketoacidoses) Diabetes mellitus complication detail: without coma Diabetes mellitus type: type 1 Qualified Code(s): E10.10 - Type 1 diabetes mellitus with ketoacidosis without coma
[2020-11-30] MEDS ORDERED: INSULIN DETEMIR FLEXPEN/FLEX TOUCH 100 UNITS/ML 3ML SC SCH (23:00)
[2020-11-30 23:18] LABS: BUN Creatinine Ratio 5.9 (10-20); Calcium 7.7 mg/dl (8.5-10.1); Creatinine Clr Calc Pharmacy 88.3 ml/min; Est GFR (African American) 119.2; Est GFR (Non-African American) 102.9; Magnesium 1.7 mg/dl (1.8-2.4); Potassium 3.9 mmol/L (3.5-5.1)
[2020-11-30 23:27] LABS: Phosphorus 1.8 mg/dl (2.5-4.9)
[2020-12-01] MEDS ORDERED: INSULIN ASPART 100 UNITS/ML 3 ML PEN SC SCH
[2020-12-01] MEDS: MoRPHine SULFATE 4 MG/ML 1 ML CARP\\VIAL IV PRN ×5 (00:18→17:11)
[2020-12-01] MEDS: ONDANSETRON INJ 2 MG/ML 2 ML VIAL IV SCH ×3 (05:13→17:11)
[2020-12-01] MEDS ORDERED: INSULIN ASPART 100 UNITS/ML 3 ML PEN SC ONE (06:15)
[2020-12-01] MEDS: POTASSIUM CHLORIDE 30 MEQ in D5W AND 1/2NSS 1,000 ML IV SCH (07:00)
[2020-12-01] MEDS ORDERED: INSULIN DETEMIR FLEXPEN/FLEX TOUCH 100 UNITS/ML 3ML SC ONE (07:30)
[2020-12-01 08:20] LABS: Hemoglobin 13.2 g/dL (12.0-16.0); Mean Corpuscular Hemoglobin 33.5 pg (25-34); Mean Corpuscular Hgb Conc 33.8 g/dL (32-36); Mean Platelet Volume 10.8 fL (7.4-10.4); Platelet Count 335 K/uL (130-400); RDW Coefficient of Variation 12.5 % (11.5-14.5); RDW Standard Deviation 45.4 fL (36.4-46.3); Red Blood Count 3.94 M/uL (4.2-5.4); White Blood Count 11.29 K/uL (4.8-10.8)
[2020-12-01 08:24] LABS: BUN Creatinine Ratio 6.2 (10-20); Calcium 8.4 mg/dl (8.5-10.1); Creatinine Clr Calc Pharmacy 120.6 ml/min; Est GFR (African American) 133.7; Est GFR (Non-African American) 115.4; Magnesium 1.9 mg/dl (1.8-2.4); Phosphorus 2.1 mg/dl (2.5-4.9); Potassium 4.1 mmol/L (3.5-5.1)
[2020-12-01] MEDS: INSULIN ASPART 100 UNITS/ML 3 ML PEN SC SCH ×4 (08:36→17:07)
[2020-12-01 08:55] LABS: Basophils # (auto) 0.02 K/uL (0-0.2); Basophils % (auto) 0.2 %; Eosinophils # (auto) 0.13 K/uL (0-0.5); Eosinophils % (auto) 1.2 %; Immature Granulocytes # (auto) 0.02 K/uL (0.00-0.02); Immature Granulocytes % (auto) 0.2 %; Lymphocytes # (auto) 2.35 K/uL (1.2-3.4); Lymphocytes % (auto) 20.8 %; Monocytes # (auto) 0.62 K/uL (0.11-0.59); Monocytes % (auto) 5.5 %; Neutrophils # (auto) 8.15 K/uL (1.4-6.5); Neutrophils % (auto) 72.1 %
[2020-12-01] MEDS: PROMETHAZINE HCL 6.25 MG in SODIUM CHLORIDE 0.9% 50 ML IV PRN (09:17)
--- NOTE | 2020-12-01 11:21 | Pharmacy Report ---
Pharmacy Glycemic Short Note 2 - Date of Service December 01, 2020 - Glycemic Short BSG Results (Last 24 hours): 11/30/20 11/30/20 11/30/20 11:50 14:00 14:31 Glucose 124 H POC Glucose 160 H 134 H 11/30/20 11/30/20 11/30/20 16:27 19:33 19:52 Glucose 235 H POC Glucose 192 H 236 H 11/30/20 11/30/20 11/30/20 21:09 21:59 22:54 Glucose 187 H POC Glucose 252 H 223 H 11/30/20 12/01/20 12/01/20 23:09 00:17 01:06 Glucose POC Glucose 171 H 152 H 152 H 12/01/20 12/01/20 12/01/20 02:03 02:58 04:14 Glucose POC Glucose 118 H 95 119 H 12/01/20 12/01/20 12/01/20 05:58 07:38 07:44 Glucose 217 H POC Glucose 203 H 236 H 12/01/20 12/01/20 12/01/20 08:25 09:27 10:32 Glucose POC Glucose 218 H 252 H 215 H OUTPATIENT ANTIDIABETIC REGIMEN: * Degludec 20 units SQ daily * Novolog: carb ratio of 1:10 * A1c = 11.9% 11/29/20 ASSESSMENT: 12/01/20: * Lacey received her home dose of basal insulin yesterday plus 12 units of Novolog * IV insulin infusion was restarted last evening per provider request. The infusion was held for ~ 4 hour overnight based on one BSG value below goal range. BSG then started to trend upward. Of note, it had been over 24 hours since last dose of basal insulin, therefore I suspect patient was becoming basal deficient at that time. * Continue to overlap IV insulin infusion with Lantus this morning. Plan to d/c infusion at lunchtime. * Minimal oral intake 11/30/20: * Ms Sandoval is a 45 y/o F admitted with DKA. Patient's diabetes is not well controlled with HbA1C of 11.9%. * Initially patient was placed on insulin infusion but this was stopped around midnight. * Patient given Lantus 20 units around 0100 and blood sugars have trended downwards to high 100s. * Patient started on Novolog q2 hours as a bridge for treatment of DKA plus D51/2NS + 20 KCL @ 125 mL/hr. PRP at 1000 showed widening gap and worsening metabolic acidosis. * PRP ordered for 1400 showed resolving acidosis so resume ACHS accuchecks plus start Levemir 20 units nightly (give at 2300 tonight to prevent the most overlap). * Overnight checks to ensure patient's BSGs remain stable. PLAN FOR INPATIENT GLYCEMIC CONTROL: * Basal insulin * Levemir per scale SQ once daily: * 18 units for BSG < 110 * 20 units for BSG 110 - 160 * 22 units for BSG > 160 * Bolus insulin * NovoLog per scale ACHS or Q6hrs while NPO * Goal Range: Low 110 mg/dL - High 140 mg/dL * Correction Factor: 30 mg/dL/unit * Nutritional / Prandial insulin per carb ratio of 1 unit per 10 grams CHO consumed thank you
[2020-12-02] MEDS ORDERED: INSULIN DETEMIR FLEXPEN/FLEX TOUCH 100 UNITS/ML 3ML SC SCH (09:00)
--- NOTE | 2020-12-08 08:45 | Discharge Summary ---
Date of Service December 01, 2020 Admission HPI Per Admitting Provider This is a 45-year-old patient with a longstanding history of diabetes. Patient states that she was diagnosed with diabetes in 2010 at the age of 25. He said this was initially discovered on preoperative labs when she was undergoing a hysterectomy and she was initially tried with oral diabetic agents which were unsuccessful and she has since been transitioned to insulin. Records were reviewed and patient follows with [facility] physician group. She has had frequent bouts of diabetic ketoacidosis. Her last visit with her primary care physician was in August 2020 at which time her diabetes was addressed. Her diabetes is noted to be poorly controlled with her sugars running between 205 100. As a result of her diabetes she suffers from neuropathy as well as gastroparesis. Hemoglobin A1c is consistently reported over 10. Concerning her diabetes I did ask her if she sees a communications professional regularly which she does not. However, she does not report any issues with foot wounds. Patient presented to [facility] today as she was in DKA. Patient claims that she is compliant with her insulin and feels that she is now in DKA due to a defective insulin pen. She notes that this may have been the case for the last 5 days. Questioned her about underlying infections that may have triggered her DKA and she denies any dysuria, cough, shortness of breath, fevers, shakes, chills, or abdominal pain. At the present time the patient complains of nausea vomiting and she notes that the nausea and vomiting ensued after she developed DKA. She notes that this was not present prior. In addition she complains of just generalized body aches. She denies any chest pain. In the emergency department the patient did undergo a chest x-ray that was negative for pneumonia or CHF. Labs included a CBC with a white blood cell count was 12.9 hemoglobin and hematocrit were 16.6 and 49.8. Platelet count was noted to be 4-15,000. A VBG revealed a pH of 7.24. Chemistry profile showed sodium was 130 potassium 6.0. UN and creatinine were both within the normal range. Her anion gap was elevated at 20. Glucose level was 622. In addition patient had a Covid test that was negative. Since arrival to the emergency department she has received 3 L of injury intravenous fluid for hydration purposes and insulin drip has been ordered which is about to be initiated. At the time of my exam the patient was in no overt distress but did appear to be uncomfortable. Principal Diagnosis DKA Discharge Exam Constitutional: + thin; no acute distress Eyes: no corneal abnormality ENMT: Ears: no hearing impairment Mucous membranes are noted to be dry. Neck: trachea midline Respiratory: CTA B/L no respiratory distress and no labored breathing Cardiovascular: Rate/Rhythm: regular rate and regular rhythm Gastrointestinal (Abdomen): Percussion/Palpation:SOFT, NONTENDER Skin: no rashes, warm and dry Neurologic: moves all extremities No focal neurologic deficits Psychiatric: Orientation: alert and oriented x 3 Discharge Data Allergies Allergy/AdvReac Type Severity Reaction Status Date / Time AZO Standard Allergy Intermediate HIVES Verified 11/11/17 13:40 insulin glargine Allergy Intermediate Rash Unverified 11/29/20 22:26 [From Lantus U-100 Insulin] naproxen Allergy Intermediate HIVES & SOB Verified 11/29/20 22:26 phenazopyridine Allergy Intermediate HIVES Verified 11/29/20 22:26 insulin degludec Allergy Mild Rash Verified 11/29/20 22:26 [From Tresiba FlexTouch U-100] sumatriptan Allergy Nausea, Verified 11/29/20 22:26 vomitting, jaw pain, worsening BARNARD nicotine AdvReac Intermediate PATCH = Verified 11/29/20 22:26 SKIN IRRIATION/ITCHINESS-LOCALIZED DERMATITIS varenicline AdvReac Intermediate SEVERE Verified 11/29/20 22:26 DEPRESSION escitalopram [From Lexapro] AdvReac Mild depression Verified 11/29/20 22:26 bupropion [From Wellbutrin] AdvReac Unknown decreased Verified 11/29/20 22:26 libido doxepin AdvReac Unknown Unknown Verified 10/01/20 14:14 paroxetine [From Paxil] AdvReac Unknown decreased Verified 10/01/20 14:14 libido sulfamethoxazole AdvReac Unknown Unknown Verified 10/01/20 14:14 [From Bactrim] trimethoprim [From Bactrim] AdvReac Unknown Unknown Verified 10/01/20 14:14 Consultations 11/29/20 20:25 ED Decision to Admit Stat Diabetes Follow up Diabetes Follow-up Needed for HgbA1c >9% Hospital Course (1) DKA (diabetic ketoacidoses): Patient does not have any obvious infectious signs or symptoms that would suggest a trigger for her diabetic ketoacidosis. Certainly this condition could be from medication noncompliance or from a malfunctioned insulin pen. Patient required admission and was placed on insulin drip and IVF fluids. Anion gap closed. BMP improved, patient felt better and was agreeable to discharge, Total Time Total Time Spent Total Time Spent (In Minutes): 32 Total Time Includes: Examination of the Patient, Discharge Planning and Medication Reconciliation Discharge Plan Discharge Items Patient Disposition: Home - Self-Care Reason For Visit: DKA Discharge Diagnosis: DKA Condition on Discharge: Good Activity: Resume your previous activity Non-emergency contact: Primary Care Provider Call non-emergency contact if: you have any medication questions Follow-up/Referrals: Kai Amador MD [Primary Care Provider] - Diet: Carb Count or DM1 Addtl Attending Provider Instructions: will resume home dose of insulin. Addtl Wet Process Miller Head Assistant Provider Instructions: DIABETES To help improve your overall blood sugar values, continue to work with Azael Shankar and the diabetes educators to slowly adjust insulin dosing as needed. Continue to check your blood sugar before meals and before bed or when feeling funny. You may want to check on coverage of a continuous glucose monitor. Levemir * Levemir is a long-acting/24 hour insulin that helps eat up the sugar your body makes. * Try to take your Levemir at the same time every day. * Even when your blood sugar is within target and even when you are not eating, you still need your Levemir every day because your body is always making sugar. * Without Levemir your blood sugars will increase and can increase your risk of DKA. Novolog * Novolog is a rapid-acting insulin that helps eat up the sugar/carbs you get from food. * Try to take your Novolog before all meals. * Even if your blood sugar is within target, you still need to take your Novolog to cover the foods you eat. * Without Novolog the sugars from the foods you eat, will stay in the bloodstream instead of being moved into the cells to be used for energy, which can make you tired and can increase your risk for DKA. Sick Day Guidelines * Check ketones anytime your blood sugar is above 250 or every 4 hours when nauseous and vomiting. * If ketones are positive, you will need extra correction insulin (see sheet provided) to cover for increased insulin needs. * When sick, never stop taking your insulin, even if not eating well! * Stay well hydrated - try to take small sips of low-calorie liquids (tea, water, diet soda, broth) every 15 minutes. * Try to eat if you are able - smaller, more frequent meals or soft foods may be easier to tolerate. * Notify Endocrinology if you have moderate to large ketones or if blood sugars remain above 250 despite giving extra insulin. Pending Studies at Discharge: No Stand-Alone Forms: My [facility] CodeGuard, Smoking Cessation Medications and DC Order Prescriptions: Continued Trulance 3 mg Tablet 3 mg PO QAM PRN (Reason: Constipation) Qty: 0 RF: 0 Nurtec ODT 75 mg tablet,disintegrating 75 mg PO DAILY PRN (Reason: migraine headache) 30 Days Qty: 8 RF: 0 Hold Instructions: does not take - not helpfull insulin aspart U-100 [Novolog Flexpen U-100 Insulin] 100 unit/mL (3 mL) insulin pen See Rx Instructions SUBCUT DAILY MDD 60 units Qty: 30 RF: 5 tizanidine [Zanaflex] 4 mg tablet 8 mg PO TID Qty: 180 RF: 1 tramadol [Ultram] 50 mg tablet 50 mg PO BID PRN (Reason: pain) Qty: 60 RF: 0 pantoprazole [Protonix] 40 mg tablet,delayed release (DR/EC) 40 mg PO DAILY Qty: 90 RF: 3 zolpidem [Ambien CR] 12.5 mg tablet,ext release multiphase 12.5 mg PO HS Qty: 1 RF: 0 nortriptyline 50 mg capsule 50 mg PO HS Qty: 90 RF: 3 Tresiba FlexTouch U-100 100 unit/mL (3 mL) insulin pen 20 unit SQ DAILY RF: 0 ProAir RespiClick 90 mcg/actuation Aerosol Powdr Breath Activated 1 inh INHALATION QID PRN (Reason: SHORT OF BREATH) RF: 0 gabapentin [Neurontin] 600 mg tablet 600 mg PO TID RF: 0 ondansetron HCl 8 mg tablet 8 mg PO UD RF: 0 ibuprofen 200 mg Tablet 600 mg PO Q6H PRN (Reason: Pain) RF: 0 No Action nitrofurantoin monohyd/m-cryst [Macrobid] 100 mg capsule 100 mg PO BID 7 Days Qty: 14 RF: 0 fluconazole [Diflucan] 150 mg tablet 150 mg PO Q3D 4 Days Qty: 4 RF: 0 Discharge Orders: Discharge Order (Routine); Ordered 12/01/20 Ordered By: Giovany Vail Admission Data Admit Date/Time: 11/29/20 21:03 Attending Provider: Giovany Vail Admit Provider: Jean-Paul Woodward Primary Care Provider: Kai Amador V. Other Providers: Kingsley Almendarez Other Interventions: Discharge Summary Assessment (RN) Last Done: 12/01/20 16:49 Coding Level of Care Code D/C Day Management >30 mins Diagnoses DKA (diabetic ketoacidoses) E10.10 Diabetes mellitus complication detail: without coma Diabetes mellitus type: type 1
== END 2020-12-01 20:00 | disposition home or self-care (01) | DRG 639 ==
LOC: ED 16:48 → 2N 21:03 → SUATTDRO 21:03 → 2N 11-30 00:22

== ENCOUNTER 2022-03-14 11:04 | Inpatient (IN) ==
[2022-03-14] MEDS ORDERED: ONDANSETRON INJ 2 MG/ML 2 ML VIAL IV STA (11:14)
[2022-03-14] MEDS ORDERED: SODIUM CHLORIDE 0.9% 1000ML 1,000 ML IV STA (11:14)
--- NOTE | 2022-03-14 11:18 | Emergency Department Note ---
Impression & Plan DKA (diabetic ketoacidosis) ADMIT ED Provider Note HPI: The patient is a 46-year-old female with history of insulin-dependent diabetes, presents the emergency department with chief complaint of nausea, generalized weakness/myalgias, dizziness, states she has had some vomiting over the past 3 days as well. Patient states the symptoms all began 3 days ago. She states that she feels as if she is in DKA as she has had similar symptoms in the past when she was in DKA. Patient states that she checked her sugars and they have been "running in the 500s". On arrival here to the ED the patient is mildly tachycardic but otherwise in no acute distress. Denies any chest pain or shortness of breath. She is overall nontoxic-appearing on my initial assessment. She tells me she has been compliant with her sliding scale insulin regimen, tells me she is not on any long-acting insulin. ROS: -GI: Nausea, vomiting -General: Generalized weakness -MSK: Myalgias -Neuro: Dizziness *10 point review systems was conducted and is otherwise negative unless stated above *Outpatient medications and allergy history reviewed PE: General: Alert, NAD HEENT: Normocephalic, atraumatic Eyes: Extraocular eye movement is intact, no scleral erythema Pulmonary: Clear to auscultation bilaterally, no wheezing Cardio: Regular rate and rhythm GI: Abdomen is soft, there is tenderness to palpation over the mid abdomen to palpation without guarding or rigidity : No suprapubic tenderness MSK: No evidence of trauma or malformation of the extremities, no edema Skin: No evidence of rash Neuro: Alert, no focal deficits Psychiatric: Cooperative patient monitor: - An order was placed for continuous cardiac monitoring - Patient was noted to be in sinus rhythm with rate of 110 EKG: Rate: 105 Rhythm: Sinus tachycardia Intervals: Within normal limits ST changes: No ST elevation Time: 1120 Medical Decision Making: Patient presented to the emergency department with chief complaint of weakness, myalgias, nausea, vomiting, states the symptoms have been ongoing for several days. She states she has been compliant with her insulin however she feels as if she is in DKA, she has had the symptoms previously when she was in DKA. Patient is hemodynamically stable on arrival, shortly after arrival IV was established, lab work obtained, patient was placed on monitor tech. Patient was ordered IV fluids for symptoms, she was also given a dose of Dilaudid for abdominal pain, CT imaging of the abdomen pelvis was ordered. Lab work shows evidence of diabetic ketoacidosis, blood sugar is elevated at 395, serum bicarbonate level is reduced to 15. Venous blood gas shows evidence of metabolic acidosis. Patient does have an anion gap of 18. Insulin drip was started as potassium is within normal limits. CT imaging of the abdomen pelvis does not show any evidence of an acute surgical process, there is mention of some changes consistent with likely cystitis however the patient's urine does not appear to be infected. We will hold off on antibiotics at this time but blood cultures were drawn as the patient does have a leukocytosis. On my reassessment the patient is comfortable appearing, she will be admitted to the hospitalist service following my discussion with Dr. Hidalgo. Patient was admitted in stable condition on insulin drip for further care. Critical care time: 45 minutes -Stabilization of patient in DKA requiring initiation of insulin drip and IV fluid resuscitation, time spent at the bedside, interpretation of diagnostic studies, discussion with other physicians and arrangement of admission Diagnosis: 1. Diabetic ketoacidosis 2. Nausea and vomiting, acute 3. Abdominal pain, acute 4. Myalgias 5. Leukocytosis Disposition: Admission Geoffrey Zabala DO Emergency Medicine Past Med/Surg History Medical History Abdominal pain with nausea and vomiting -- reason for EGD Anxiety Asthma over a year since last use of inhaler Degenerative disc disease Depression Diabetes mellitus, type 2 uncontrolled diabetes, at night patient reports sugar can be between 400 and 500. Gastroparesis GERD (gastroesophageal reflux disease) Ketoacidosis frequently but last hospitalized Dec 2018 BSG OVER 900 Migraine without aura, not intractable, without status migrainosus Ovarian cyst HX OF Pain syndrome, chronic Pancreatitis ~2016 Peripheral neuropathy bilateral legs and feet Pneumonia Dec 2018 Post traumatic stress disorder Seizure Last seizure ~2012. "pass out" type but not convulsions. no problems since. Thrush 2019 Surgical History History of colonoscopy History of esophagogastroduodenoscopy (EGD) History of hemorrhoidectomy History of tonsillectomy History of tooth extraction S/P laparoscopic assisted vaginal hysterectomy (LAVH) Surgical history of tubal ligation clips Family History Mother Family history of diabetes mellitus Diabetes Unknown Diabetes Breast cancer Father Alcohol abuse Uncle Alcohol abuse Grandmother Ovarian cancer Denies family history of Colon cancer Prostate cancer Myocardial infarction Colorectal cancer Social History Smoking Status: Current every day smoker Tobacco Type: Cigarettes Age Started Using Tobacco: 16; packs per day: 1; Years Smoked: 22; Cigarettes Per Day: 1 PPD; Second Hand Exposure: No; Hx Alcohol Use: No Hx Substance Use: Yes (per record -- pt denies) Substance Use Type Other:: STOPPED MEDICAL MARIJUANA IN AUGUST Preferred Language: Frisian Communication Ability: Effective Visual Impairment: No Limitations Hearing Ability: Normal Utilization Supervisor Required: No Beliefs That Will Affect Care: None marital status: Current Living Situation: Spouse and Family current occupational status: disabled Feels Safe at Home: Yes Childhood Exposure to Second-Hand Smoke: Yes (grandmother) Dental Care, Regularly: Yes Physical Activity Frequency: 3-4 Times per Week Seatbelt Use: always Sunscreen Use: Yes Assistive Devices: Contacts and Glasses Allergies Allergies Allergy/AdvReac Type Severity Reaction Status Date / Time AZO Standard Allergy Intermediate HIVES Verified 11/11/17 13:40 insulin glargine Allergy Intermediate Rash Verified 03/14/22 14:24 [From Lantus U-100 Insulin] naproxen Allergy Intermediate HIVES & SOB Verified 03/14/22 14:24 phenazopyridine Allergy Intermediate HIVES Verified 03/14/22 14:24 sumatriptan Allergy Intermediate Nausea, Verified 03/14/22 14:24 vomitting, jaw pain, worsening BARNARD insulin degludec Allergy Mild Rash Verified 03/14/22 14:24 [From Tresiba FlexTouch U-100] Opioids - Morphine Analogues AdvReac Severe Nausea Verified 03/14/22 14:24 nicotine AdvReac Intermediate PATCH = Verified 03/14/22 14:24 SKIN IRRIATION/ITCHINESS-LOCALIZED DERMATITIS varenicline AdvReac Intermediate SEVERE Verified 03/14/22 14:24 DEPRESSION escitalopram [From Lexapro] AdvReac Mild depression Verified 03/14/22 14:24 bupropion [From Wellbutrin] AdvReac Unknown decreased Verified 03/14/22 14:24 libido doxepin AdvReac Unknown Unknown Verified 03/14/22 14:24 paroxetine [From Paxil] AdvReac Unknown decreased Verified 03/14/22 14:24 libido sulfamethoxazole AdvReac Unknown Unknown Verified 03/14/22 14:24 [From Bactrim] trimethoprim [From Bactrim] AdvReac Unknown Unknown Verified 03/14/22 14:24 Home Meds Home Medications Medication Instructions Recorded Confirmed buspirone 10 mg tablet 10 mg PO BID 06/07/21 03/14/22 nortriptyline 75 mg capsule 75 mg PO HS 09/30/21 03/14/22 quetiapine 50 mg tablet (Seroquel) 100 mg PO HS 09/30/21 03/14/22 bupropion HCl 200 mg tablet,12 hr 200 mg PO QAM 03/14/22 03/14/22 sustained-release (Wellbutrin SR) cyanocobalamin (vitamin B-12) 2,500 mcg PO QAM 03/14/22 03/14/22 2,500 mcg tablet Previous Rx's Medication Instructions Recorded insulin aspart U-100 100 unit/mL 1 sliding scale dose SUBCUT 11/06/21 subcutaneous solution (Novolog USEASDIRECTD #20 ml U-100 Insulin aspart) tizanidine 4 mg tablet (Zanaflex) 8 mg PO TID #180 tab 12/27/21 cholecalciferol (vitamin D3) 50 50 mcg PO BID #60 cap 02/11/22 mcg (2,000 unit) capsule gabapentin 800 mg tablet 800 mg PO TID #90 tab 02/17/22 ondansetron HCl 8 mg tablet 8 mg PO UD #90 tab 02/24/22 tramadol 50 mg tablet (Ultram) 50 mg PO BID PRN #60 tab 02/25/22 carbamazepine 200 mg tablet 200 mg PO BID #60 tab 03/10/22 (Tegretol) Results & Data (ED) Vital Signs Vital Signs - 24 hr 03/14/22 11:07 03/14/22 11:35 03/14/22 13:04 Temperature 36.2 C L Temperature Source Temporal Artery Scan Pulse Rate 112 H 100 H Pulse Rate [Apical] 100 H 106 H Pulse Rhythm Regular Pulse Strength Normal Respiratory Rate 20 16 16 Respiratory Effort / Characteristics Non-Labored Spontaneous Respiratory Depth Normal Respiratory Pattern Regular Blood Pressure 114/74 Blood Pressure [Right Arm] 122/79 135/70 Blood Pressure Mean 87 Blood Pressure Mean [Right Arm] 93 91 Blood Pressure Position Sitting Pulse Oximetry 97 100 99 Oxygen Delivery Method Room Air Room Air Sepsis Recent Fever Within 48 Hours No Sepsis New/Unexplained Change in Mental Status No Sepsis Action Taken by Nursing No Action Required Laboratory Data Result diagrams: 03/14/22 11:31 03/14/22 11:31 Lab Results 03/14/22 03/14/22 03/14/22 Range/Units 11:30 11:31 11:31 WBC (4.8-10.8) K/uL RBC (4.2-5.4) M/uL Hgb (12.0-16.0) g/dL Hct (37-47) % MCV (80-100) fL MCH (25-34) pg MCHC (32-36) g/dL RDW Std Deviation (36.4-46.3) fL RDW Coeff of Korey (11.5-14.5) % Plt Count (130-400) K/uL MPV (7.4-10.4) fL Immature Gran % (Auto) % Neut % (Auto) % Lymph % (Auto) % [place] % (Auto) % Eos % (Auto) % Baso % (Auto) % Neut # (Auto) (1.4-6.5) K/uL Lymph # (Auto) (1.2-3.4) K/uL [place] # (Auto) (0.11-0.59) K/uL Eos # (Auto) (0-0.5) K/uL Baso # (Auto) (0-0.2) K/uL Immature Gran # (Auto) (0.00-0.02) K/uL VBG pH 7.29 L (7.36-7.41) VBG pCO2 33 L (38-50) mmHg VBG pO2 45 mmHg VBG HCO3 16 mmol/L VBG O2 Saturation 78.1 % VBG Base Excess -9.8 mEq/L Barometric Pressure 742.9 mm/Hg Sodium (136-145) mmol/L Potassium (3.5-5.1) mmol/L Chloride (98-107) mmol/L Carbon Dioxide (21-32) mmol/L Anion Gap (3-11) BUN (6-23) mg/dl Creatinine (0.6-1.2) mg/dl Est Cr Clr Drug Dosing ml/min Est GFR ( Amer) ml/min Est GFR (Non-Af Amer) ml/min BUN/Creatinine Ratio (10-20) Glucose (70-99(Fasting)) mg/dl POC Glucose (70-99) mg/dl Lactate 0.9 (0.4-2.0) mmol/L Calcium (8.5-10.1) mg/dl Total Bilirubin (0.2-1.0) mg/dl AST (13-39) U/L ALT (7-52) U/L Alkaline Phosphatase (34-104) U/L Troponin I High Sens 59.4 H* (0-14) pg/ml Total Protein (6.0-8.3) gm/dl Albumin (3.4-5.0) gm/dl Globulin (2.5-4.0) gm/dl Albumin/Globulin Ratio (0.9-2) Lipase (11-82) U/L Urine Color Urine Appearance (Clear) Urine pH (4.5-7.5) Ur Specific [place] (1.000-1.030) Urine Protein (Negative) Urine Glucose (UA) (Negative) Urine Ketones (Negative) Urine Blood (Negative) Urine Nitrite (Negative) Urine Bilirubin (Negative) Urine Urobilinogen (Negative) Ur Leukocyte Esterase (Negative) Urine WBC (Auto) (0-5) /hpf Urine RBC (Auto) (0-4) /hpf U Hyaline Cast (Auto) (0-5) /lpf U Epithel Cells (Auto) (0-5) /lpf Urine Bacteria (Auto) (Negative) Urine Yeast (None Prsent) 03/14/22 03/14/22 03/14/22 Range/Units 11:31 11:31 13:11 WBC 14.32 H (4.8-10.8) K/uL RBC 4.12 L (4.2-5.4) M/uL Hgb 14.3 (12.0-16.0) g/dL Hct 42.9 (37-47) % MCV 104.1 H (80-100) fL MCH 34.7 H (25-34) pg MCHC 33.3 (32-36) g/dL RDW Std Deviation 49.3 H (36.4-46.3) fL RDW Coeff of Korey 13.0 (11.5-14.5) % Plt Count 437 H (130-400) K/uL MPV 10.8 H (7.4-10.4) fL Immature Gran % (Auto) 0.3 % Neut % (Auto) 66.1 % Lymph % (Auto) 25.1 % [place] % (Auto) 6.6 % Eos % (Auto) 1.7 % Baso % (Auto) 0.2 % Neut # (Auto) 9.46 H (1.4-6.5) K/uL Lymph # (Auto) 3.60 H (1.2-3.4) K/uL [place] # (Auto) 0.95 H (0.11-0.59) K/uL Eos # (Auto) 0.24 (0-0.5) K/uL Baso # (Auto) 0.03 (0-0.2) K/uL Immature Gran # (Auto) 0.04 H (0.00-0.02) K/uL VBG pH (7.36-7.41) VBG pCO2 (38-50) mmHg VBG pO2 mmHg VBG HCO3 mmol/L VBG O2 Saturation % VBG Base Excess mEq/L Barometric Pressure mm/Hg Sodium 130 L (136-145) mmol/L Potassium 5.1 (3.5-5.1) mmol/L Chloride 97 L (98-107) mmol/L Carbon Dioxide 15 L (21-32) mmol/L Anion Gap 18 H (3-11) BUN 15 (6-23) mg/dl Creatinine 0.94 (0.6-1.2) mg/dl Est Cr Clr Drug Dosing 63.5 ml/min Est GFR ( Amer) 84.3 ml/min Est GFR (Non-Af Amer) 72.8 ml/min BUN/Creatinine Ratio 16.0 (10-20) Glucose 395 H* (70-99(Fasting)) mg/dl POC Glucose 427 H* (70-99) mg/dl Lactate (0.4-2.0) mmol/L Calcium 9.0 (8.5-10.1) mg/dl Total Bilirubin 0.5 (0.2-1.0) mg/dl AST 17 (13-39) U/L ALT 31 (7-52) U/L Alkaline Phosphatase 134 H (34-104) U/L Troponin I High Sens (0-14) pg/ml Total Protein 6.6 (6.0-8.3) gm/dl Albumin 3.8 (3.4-5.0) gm/dl Globulin 2.8 (2.5-4.0) gm/dl Albumin/Globulin Ratio 1.4 (0.9-2) Lipase 8 L (11-82) U/L Urine Color Urine Appearance (Clear) Urine pH (4.5-7.5) Ur Specific [place] (1.000-1.030) Urine Protein (Negative) Urine Glucose (UA) (Negative) Urine Ketones (Negative) Urine Blood (Negative) Urine Nitrite (Negative) Urine Bilirubin (Negative) Urine Urobilinogen (Negative) Ur Leukocyte Esterase (Negative) Urine WBC (Auto) (0-5) /hpf Urine RBC (Auto) (0-4) /hpf U Hyaline Cast (Auto) (0-5) /lpf U Epithel Cells (Auto) (0-5) /lpf Urine Bacteria (Auto) (Negative) Urine Yeast (None Prsent) 03/14/22 03/14/22 03/14/22 Range/Units 13:50 14:17 15:14 WBC (4.8-10.8) K/uL RBC (4.2-5.4) M/uL Hgb (12.0-16.0) g/dL Hct (37-47) % MCV (80-100) fL MCH (25-34) pg MCHC (32-36) g/dL RDW Std Deviation (36.4-46.3) fL RDW Coeff of Korey (11.5-14.5) % Plt Count (130-400) K/uL MPV (7.4-10.4) fL Immature Gran % (Auto) % Neut % (Auto) % Lymph % (Auto) % [place] % (Auto) % Eos % (Auto) % Baso % (Auto) % Neut # (Auto) (1.4-6.5) K/uL Lymph # (Auto) (1.2-3.4) K/uL [place] # (Auto) (0.11-0.59) K/uL Eos # (Auto) (0-0.5) K/uL Baso # (Auto) (0-0.2) K/uL Immature Gran # (Auto) (0.00-0.02) K/uL VBG pH (7.36-7.41) VBG pCO2 (38-50) mmHg VBG pO2 mmHg VBG HCO3 mmol/L VBG O2 Saturation % VBG Base Excess mEq/L Barometric Pressure mm/Hg Sodium (136-145) mmol/L Potassium (3.5-5.1) mmol/L Chloride (98-107) mmol/L Carbon Dioxide (21-32) mmol/L Anion Gap (3-11) BUN (6-23) mg/dl Creatinine (0.6-1.2) mg/dl Est Cr Clr Drug Dosing ml/min Est GFR ( Amer) ml/min Est GFR (Non-Af Amer) ml/min BUN/Creatinine Ratio (10-20) Glucose (70-99(Fasting)) mg/dl POC Glucose 358 H* 192 H (70-99) mg/dl Lactate (0.4-2.0) mmol/L Calcium (8.5-10.1) mg/dl Total Bilirubin (0.2-1.0) mg/dl AST (13-39) U/L ALT (7-52) U/L Alkaline Phosphatase (34-104) U/L Troponin I High Sens (0-14) pg/ml Total Protein (6.0-8.3) gm/dl Albumin (3.4-5.0) gm/dl Globulin (2.5-4.0) gm/dl Albumin/Globulin Ratio (0.9-2) Lipase (11-82) U/L Urine Color Yellow Urine Appearance Cloudy A (Clear) Urine pH 5.0 (4.5-7.5) Ur Specific [place] 1.030 (1.000-1.030) Urine Protein Trace H (Negative) Urine Glucose (UA) 3+ H (Negative) Urine Ketones 4+ H (Negative) Urine Blood Negative (Negative) Urine Nitrite Negative (Negative) Urine Bilirubin Negative (Negative) Urine Urobilinogen Negative (Negative) Ur Leukocyte Esterase Negative (Negative) Urine WBC (Auto) 1-5 (0-5) /hpf Urine RBC (Auto) 0-4 (0-4) /hpf U Hyaline Cast (Auto) 1-5 (0-5) /lpf U Epithel Cells (Auto) >30 H (0-5) /lpf Urine Bacteria (Auto) 1+ H (Negative) Urine Yeast Present A (None Prsent) Administered Medications Insulin Human Regular 250 (units/ Sodium Chloride) 250 mls @ 5.4 mls/hr IV .Q24H [facility]; Protocol Stop: 04/13/22 12:14 Last Admin: 03/14/22 13:03 Dose: 5.4 units/hr, 5.4 mls/hr Documented by: [id number] Cosigned by: [id number] Discontinued Medications Hydromorphone HCl (Hydromorphone Inj 0.5 Mg/0.5 Ml Syr) 0.5 mg IV NOW STA Stop: 03/14/22 12:48 Last Admin: 03/14/22 13:03 Dose: 0.5 mg Documented by: [id number] Sodium Chloride (Nss 1000ml) 1,000 mls @ 999 mls/hr IV .Q1H1M STA Stop: 03/14/22 12:14 Last Infusion: 03/14/22 12:35 Dose: 0 mls/hr Documented by: [id number] Admin: 03/14/22 11:33 Dose: 999 mls/hr Documented by: [id number] Sodium Chloride (Nss 1000ml) 2,000 mls @ 999 mls/hr IV .Q2H1M ONE Stop: 03/14/22 14:03 Last Admin: 03/14/22 13:03 Dose: 999 mls/hr Documented by: [id number] Ceftriaxone Sodium (Rocephin) 1,000 mg in 50 mls @ 100 mls/hr IV NOW STA Stop: 03/14/22 14:25 Last Admin: 03/14/22 15:01 Dose: Not Given Documented by: [id number] Insulin Human Regular (Novolin-R Bolus From Bag) 5.4 units IV ONE ONE Stop: 03/14/22 12:31 Last Admin: 03/14/22 13:18 Dose: 5.4 units Documented by: [id number] Cosigned by: [id number] Miscellaneous (Stat Insulin Drip) 1 ea N/A NOW STA Stop: 03/14/22 12:13 Last Admin: 03/14/22 13:18 Dose: Not Given Documented by: [id number] Ondansetron HCl (Ondansetron Inj 2 Mg/Ml 2 Ml Vial) 4 mg IV NOW STA Stop: 03/14/22 11:15 Last Admin: 03/14/22 11:33 Dose: 4 mg Documented by: [id number] Imaging Data Radiologist's Impression: Abdomen/Pelvis CT 03/14/22 11:14 CT SCAN OF THE ABDOMEN AND PELVIS WITH IV CONTRAST CLINICAL HISTORY: Nausea and vomiting. Right lower quadrant abdominal pain. COMPARISON STUDY: Abdominal CT dated 10/15/2021. TECHNIQUE: Following the IV administration of 93 cc of Optiray 320, CT scan of the abdomen and pelvis is performed from the lung bases to the proximal femora. Images are reviewed in the axial, sagittal, and coronal planes. IV contrast was administered without complication. A dose lowering technique was utilized adhering to the principles of ALARA. CT DOSE: 323.41 mGycm FINDINGS: Lung bases: The heart is normal in size and without pericardial effusion. The lung bases are clear. Liver: The contrast-enhanced liver is enlarged, measuring 22.5 cm in length. The liver is otherwise normal in contour and attenuation. There is no intrahepatic biliary ductal dilatation. The hepatic veins and portal veins are patent. An indeterminant subcentimeter hypodensity in the right lower image #53 is unchanged. Gallbladder: Unremarkable. Spleen: Normal in size and attenuation. Pancreas: Moderately atrophic and grossly unremarkable. Adrenal glands: Unremarkable. Kidneys: The contrast enhanced kidneys are normal in size and without hydronephrosis. The kidneys enhance symmetrically. Abdominal vasculature: The abdominal aorta is normal in course and caliber noting moderate atherosclerotic calcification. Bowel: There is no bowel obstruction. The appendix is normal as visualized. Peritoneum: There is no intraperitoneal free air or abdominal ascites. There is a fat-containing umbilical hernia. Lymphadenopathy: None. Pelvic viscera: The bladder is distended and appears circumferentially thick walled. The uterus is surgically absent. No adnexal lesion is identified. Skeletal structures: No lytic or blastic lesions are seen. IMPRESSION: 1. The bladder is distended and the wall appears thickened. Correlate with clinical findings and urinalysis. 2. Hepatomegaly. 3. There is age advanced atherosclerotic calcification of the abdominal aorta. 4. Additional findings as above. ACT 112: Negative or not required by law. Electronically signed by: Jared Jane M.D. 03/14/2022 1:52 PM Discharge Plan Visit Data Chief Complaint: Nausea Stated Complaint: DKA, DEHYDRATED, NAUSEA ED Provider: Geoffrey Zabala Discharge Problem: DKA (diabetic ketoacidosis) Forms Stand Alone Forms: [facility], [facility] Prescriptions Prescriptions: No Action insulin aspart U-100 [Novolog U-100 Insulin aspart] 100 unit/mL solution 1 sliding scale dose subcut USEASDIRECTD Qty: 20 RF: 3 tizanidine [Zanaflex] 4 mg tablet 8 mg PO TID Qty: 180 RF: 1 cholecalciferol (vitamin D3) 50 mcg (2,000 unit) capsule 50 mcg PO BID Qty: 60 RF: 8 gabapentin 800 mg tablet 800 mg PO TID Qty: 90 RF: 8 ondansetron HCl 8 mg tablet 8 mg PO UD Qty: 90 RF: 3 tramadol [Ultram] 50 mg tablet 50 mg PO BID PRN (Reason: pain) Qty: 60 RF: 0 carbamazepine [Tegretol] 200 mg tablet 200 mg PO BID Qty: 60 RF: 5 buspirone 10 mg tablet 10 mg PO BID RF: 0 nortriptyline 75 mg Capsule 75 mg PO HS RF: 0 quetiapine [Seroquel] 50 mg Tablet 100 mg PO HS RF: 0 bupropion HCl [Wellbutrin SR] 200 mg tablet sustained-release 12 hr 200 mg PO QAM RF: 0 cyanocobalamin (vitamin B-12) 2,500 mcg tablet 2,500 mcg PO QAM RF: 0 Referrals Referrals: Kai Amador MD [Primary Care Provider] - Discharge Problem: DKA (diabetic ketoacidosis) Qualifiers: Diabetes mellitus type: type 1 Diabetes mellitus complication detail: without coma Qualified Code(s): E10.10 - Type 1 diabetes mellitus with ketoacidosis without coma
[2022-03-14 11:41] LABS: Hematocrit (blood only) 42.9 % (37-47); Hemoglobin 14.3 g/dL (12.0-16.0); Mean Corpuscular Hemoglobin 34.7 pg (25-34); Mean Corpuscular Hgb Conc 33.3 g/dL (32-36); Mean Corpuscular Volume 104.1 fL (80-100); Mean Platelet Volume 10.8 fL (7.4-10.4); Platelet Count 437 K/uL (130-400); RDW Standard Deviation 49.3 fL (36.4-46.3); Red Blood Count 4.12 M/uL (4.2-5.4); White Blood Count 14.32 K/uL (4.8-10.8)
[2022-03-14 11:57] LABS: Base Excess VBG -9.8 mEq/L; pH VBG 7.29 (7.36-7.41)
[2022-03-14 11:58] LABS: Oxygen Saturation VBG 78.1 %
[2022-03-14] MEDS ORDERED: SODIUM CHLORIDE 0.9% 1000ML 2,000 ML IV ONE (12:03)
[2022-03-14 12:08] LABS: Basophils # (auto) 0.03 K/uL (0-0.2); Basophils % (auto) 0.2 %; Eosinophils # (auto) 0.24 K/uL (0-0.5); Eosinophils % (auto) 1.7 %; Immature Granulocytes # (auto) 0.04 K/uL (0.00-0.02); Immature Granulocytes % (auto) 0.3 %; Lymphocytes % (auto) 25.1 %; Monocytes # (auto) 0.95 K/uL (0.11-0.59); Monocytes % (auto) 6.6 %; Neutrophils # (auto) 9.46 K/uL (1.4-6.5); Neutrophils % (auto) 66.1 %
[2022-03-14 12:09] LABS: Albumin Globulin Ratio 1.4 (0.9-2); Albumin Level 3.8 gm/dl (3.4-5.0); Bilirubin,Total 0.5 mg/dl (0.2-1.0); Creatinine Clr Calc Pharmacy 63.5 ml/min; Est GFR (African American) 84.3 ml/min; Est GFR (Non-African American) 72.8 ml/min; Globulin 2.8 gm/dl (2.5-4.0); Potassium 5.1 mmol/L (3.5-5.1); Total Protein 6.6 gm/dl (6.0-8.3)
[2022-03-14] MEDS ORDERED: STAT INSULIN DRIP STA (12:12)
[2022-03-14] MEDS ORDERED: GLUCAGON FOR INJ 1 MG VIAL SQ PRN (12:12)
[2022-03-14] MEDS ORDERED: CARBOHYDRATES FOR HYPOGLYCEMIA PO PRN (12:12)
[2022-03-14] MEDS ORDERED: GLUCOSE 10 TABS/TUBE PO PRN (12:12)
[2022-03-14] MEDS ORDERED: DEXTROSE 50% 50 ML SYRINGE IV PRN (12:12)
[2022-03-14] MEDS ORDERED: GLUCOSE 40% GEL 15 GM TUBE PO PRN (12:12)
--- NOTE | 2022-03-14 12:17 | Electrocardiogram Report ---
Test Reason : Blood Pressure : / mmHG Vent. Rate : 105 BPM Atrial Rate : 105 BPM P-R Int : 144 ms QRS Dur : 086 ms QT Int : 332 ms P-R-T Axes : 083 -84 077 degrees QTc Int : 438 ms Sinus tachycardia Biatrial enlargement Left axis deviation Abnormal ECG When compared with ECG of 29-NOV-2020 17:47, No significant change was found Confirmed by Sabino Liu ([id number]) on 03/14/2022 12:16:58 PM Referred By: Confirmed By:Ever Liu
[2022-03-14] MEDS ORDERED: NovoLIN-R BOLUS FROM BAG IV ONE (12:30)
[2022-03-14] MEDS ORDERED: HYDROmorphone INJ 0.5 MG/0.5 ML SYR IV STA (12:47)
[2022-03-14] MEDS: INSULIN REGULAR 250 UNITS in SODIUM CHLORIDE 0.9% 247.5 ML IV SCH (13:03)
--- NOTE | 2022-03-14 13:55 | CT Scan Report ---
CT SCAN OF THE ABDOMEN AND PELVIS WITH IV CONTRAST CLINICAL HISTORY: Nausea and vomiting. Right lower quadrant abdominal pain. COMPARISON STUDY: Abdominal CT dated 10/15/2021. TECHNIQUE: Following the IV administration of 93 cc of Optiray 320, CT scan of the abdomen and pelvi s is performed from the lung bases to the proximal femora. Images are reviewed in the axial, sagittal , and coronal planes. IV contrast was administered without complication. A dose lowering technique wa s utilized adhering to the principles of ALARA. CT DOSE: 323.41 mGycm FINDINGS: Lung bases: The heart is normal in size and without pericardial effusion. The lung bases are clear. Liver: The contrast-enhanced liver is enlarged, measuring 22.5 cm in length. The liver is otherwise n ormal in contour and attenuation. There is no intrahepatic biliary ductal dilatation. The hepatic vei ns and portal veins are patent. An indeterminant subcentimeter hypodensity in the right lower image # 53 is unchanged. Gallbladder: Unremarkable. Spleen: Normal in size and attenuation. Pancreas: Moderately atrophic and grossly unremarkable. Adrenal glands: Unremarkable. Kidneys: The contrast enhanced kidneys are normal in size and without hydronephrosis. The kidneys enh ance symmetrically. Abdominal vasculature: The abdominal aorta is normal in course and caliber noting moderate atheroscle rotic calcification. Bowel: There is no bowel obstruction. The appendix is normal as visualized. Peritoneum: There is no intraperitoneal free air or abdominal ascites. There is a fat-containing umbi lical hernia. Lymphadenopathy: None. Pelvic viscera: The bladder is distended and appears circumferentially thick walled. The uterus is sarabia rgically absent. No adnexal lesion is identified. Skeletal structures: No lytic or blastic lesions are seen. IMPRESSION: 1. The bladder is distended and the wall appears thickened. Correlate with clinical findings and urin alysis. 2. Hepatomegaly. 3. There is age advanced atherosclerotic calcification of the abdominal aorta. 4. Additional findings as above. ACT 112: Negative or not required by law. Electronically signed by: Jared Jane M.D. 03/14/2022 1:52 PM
[2022-03-14] MEDS ORDERED: cefTRIAXone SODIUM 1,000 MG/50 ML BAG IV STA (13:56)
[2022-03-14 14:07] LABS: Appearance Urine Cloudy (Clear); Bacteria Urine Automated 1+ (Negative); Bilirubin Urine Negative (Negative); Blood Urine Negative (Negative); Color Urine Yellow; Epithelial Cell Urine Auto >30 /lpf (0-5); Glucose Urine UA 3+ (Negative); Ketones Urine 4+ (Negative); Leukocyte Esterase Urine Negative (Negative); Nitrite Urine Negative (Negative); Protein Urine Trace (Negative); Urobilinogen Urine Negative (Negative)
[2022-03-14 14:23] LABS: RBC Urine Automated 0-4 /hpf (0-4)
--- NOTE | 2022-03-14 15:03 | History & Physical Report ---
Date of Service March 14, 2022 Assessment & Plan (1) DKA (diabetic ketoacidosis): Plan: Mild with AG of 18 and VBG pH of 7.3. - IV fluids and insulin gtt started in the ED - Glycemic pharmacy consulted - Continue IV fluids, monitor K+, insulin gtt - Repeat A1c in the AM (2) Depression with anxiety: Plan: On extensive psychiatric medication list which was verified with patient and online with recent refills to avoid giving medications in the hospital which she does not take at home. - Continue home bupropion, buspirone, carbamazepine & gabapentin (more for diabetic neuropathy than psychiatric reasons), nortriptyline, quetiapine - Continue home tizanidine but make it PRN - Continue home tramadol PRN (3) Hypertension: Plan: On med problem list, but not on any hypertensive medication. In ED, BP was only 135/70. - Monitor BP (4) Elevated troponin: Plan: No chest pain; EKG stable. - Check one more. If stable, no needs. (5) Vitamin B12 deficiency: Plan: History of. - Continue B12 repletion (6) Macrocytosis: Plan: Noted on CBC. - Check B12/folate (7) DVT prophylaxis: Plan: Lovenox 40 mg SQ daily History of Present Illness Primary Care Provider: Kai Amador MD 46yo F w/ hx of DM1 diagnosed in 2010 who presents with DKA. The patient was in her normal state of health over , even hosting [facility] dinner. She reports normal sugars then. On Thursday, she reports she ate lot of pickled beets, and her sugars went up as high as 400 that day. She was somewhat nauseated, but did not throw up. On Thursday and , she reports increased lethargy, overall body weakness, increased thirst, and increased urination. She also had increased amount of nausea and increased numbers of emesis which she reports was non- bloody and non-bilious, and was just the food and drink she'd been consuming. She was in bed most of the day. She reports that she was still giving herself insulin, but her regimen is quite odd where she only uses Novolog every 4 hours. She reports over the last few days, she was giving herself 6 - 8 units every 4 hours. She reports that she follows with Christian Shankar for her diabetes, but hasn't seen him in "a while." The last visit I see was in 07/2020. At that time, she was on a long-acting agent, and she denies being on one now and cannot give an exact time frame for when she was last on one. Otherwise, she reports abdominal pain from the episodes of vomiting and generally "pain all over." She denies any infectious complaints such as shortness of breath, cough, fevers/chills, dysuria, incomplete voiding sensation, or other concerns. Allergies Allergy/AdvReac Type Severity Reaction Status Date / Time AZO Standard Allergy Intermediate HIVES Verified 11/11/17 13:40 insulin glargine Allergy Intermediate Rash Verified 03/14/22 14:24 [From Lantus U-100 Insulin] naproxen Allergy Intermediate HIVES & SOB Verified 03/14/22 14:24 phenazopyridine Allergy Intermediate HIVES Verified 03/14/22 14:24 sumatriptan Allergy Intermediate Nausea, Verified 03/14/22 14:24 vomitting, jaw pain, worsening BARNARD insulin degludec Allergy Mild Rash Verified 03/14/22 14:24 [From Tresiba FlexTouch U-100] Opioids - Morphine Analogues AdvReac Severe Nausea Verified 03/14/22 14:24 nicotine AdvReac Intermediate PATCH = Verified 03/14/22 14:24 SKIN IRRIATION/ITCHINESS-LOCALIZED DERMATITIS varenicline AdvReac Intermediate SEVERE Verified 03/14/22 14:24 DEPRESSION escitalopram [From Lexapro] AdvReac Mild depression Verified 03/14/22 14:24 bupropion [From Wellbutrin] AdvReac Unknown decreased Verified 03/14/22 14:24 libido doxepin AdvReac Unknown Unknown Verified 03/14/22 14:24 paroxetine [From Paxil] AdvReac Unknown decreased Verified 03/14/22 14:24 libido sulfamethoxazole AdvReac Unknown Unknown Verified 03/14/22 14:24 [From Bactrim] trimethoprim [From Bactrim] AdvReac Unknown Unknown Verified 03/14/22 14:24 Home Medications Medication Instructions Recorded Confirmed Type buspirone 10 mg tablet 10 mg PO BID 06/07/21 03/14/22 History nortriptyline 75 mg capsule 75 mg PO HS 11/08/21 04/22/22 History quetiapine 50 mg tablet (Seroquel) 100 mg PO HS 09/30/21 03/14/22 History insulin aspart U-100 100 unit/mL 1 sliding scale dose SUBCUT 11/06/21 03/14/22 Rx subcutaneous solution (Novolog USEASDIRECTD #20 ml U-100 Insulin aspart) tizanidine 4 mg tablet (Zanaflex) 8 mg PO TID #180 tab 12/27/21 03/14/22 Rx cholecalciferol (vitamin D3) 50 50 mcg PO BID #60 cap 02/11/22 03/14/22 Rx mcg (2,000 unit) capsule gabapentin 800 mg tablet 800 mg PO TID #90 tab 02/17/22 03/14/22 Rx ondansetron HCl 8 mg tablet 8 mg PO UD #90 tab 02/24/22 03/14/22 Rx tramadol 50 mg tablet (Ultram) 50 mg PO BID PRN #60 tab 02/25/22 03/14/22 Rx carbamazepine 200 mg tablet 200 mg PO BID #60 tab 03/10/22 03/14/22 Rx (Tegretol) bupropion HCl 200 mg tablet,12 hr 200 mg PO QAM 03/14/22 03/14/22 History sustained-release (Wellbutrin SR) cyanocobalamin (vitamin B-12) 2,500 mcg PO QAM 03/14/22 03/14/22 History 2,500 mcg tablet Past Med/Surg History Medical History Abdominal pain with nausea and vomiting -- reason for EGD Anxiety Asthma over a year since last use of inhaler Degenerative disc disease Depression Diabetes mellitus, type 2 uncontrolled diabetes, at night patient reports sugar can be between 400 and 500. Gastroparesis GERD (gastroesophageal reflux disease) Ketoacidosis frequently but last hospitalized Dec 2018 BSG OVER 900 Migraine without aura, not intractable, without status migrainosus Ovarian cyst HX OF Pain syndrome, chronic Pancreatitis ~2016 Peripheral neuropathy bilateral legs and feet Pneumonia Dec 2018 Post traumatic stress disorder Seizure Last seizure ~2012. "pass out" type but not convulsions. no problems since. Thrush 2019 Surgical History History of colonoscopy History of esophagogastroduodenoscopy (EGD) History of hemorrhoidectomy History of tonsillectomy History of tooth extraction S/P laparoscopic assisted vaginal hysterectomy (LAVH) Surgical history of tubal ligation clips Family History Mother Family history of diabetes mellitus Diabetes Unknown Diabetes Breast cancer Father Alcohol abuse Uncle Alcohol abuse Grandmother Ovarian cancer Denies family history of Colon cancer Prostate cancer Myocardial infarction Colorectal cancer Social History Smoking Status: Current every day smoker Tobacco Type: Cigarettes Age Started Using Tobacco: 16; packs per day: 1; Years Smoked: 22; Cigarettes Per Day: 1 PPD; Second Hand Exposure: No; Hx Alcohol Use: No Hx Substance Use: Yes (per record -- pt denies) Substance Use Type Other:: STOPPED MEDICAL MARIJUANA IN AUGUST Preferred Language: Mohawk Communication Ability: Effective Visual Impairment: No Limitations Hearing Ability: Normal Senior Business Development Analyst Required: No Beliefs That Will Affect Care: None marital status: Current Living Situation: Spouse and Family current occupational status: disabled Feels Safe at Home: Yes Childhood Exposure to Second-Hand Smoke: Yes (grandmother) Dental Care, Regularly: Yes Physical Activity Frequency: 3-4 Times per Week Seatbelt Use: always Sunscreen Use: Yes Assistive Devices: Contacts and Glasses Review of Systems Review of Systems: All systems reviewed & are unremarkable except as noted in HPI & below Physical Exam Constitutional: WD/WN, vitals as above Eyes: EOM intact bilaterally; no conjunctival abnormality ENMT: external ear and nose normal, oropharynx normal Neck: trachea midline, no thyromegaly normal visual inspection Respiratory: normal respiratory effort, lungs clear to auscultation no respiratory distress Cardiovascular: Rate/Rhythm: regular rhythm and + tachycardic Gastrointestinal (Abdomen): Inspection/Auscultation: abdomen normal to inspection; abdomen not distended Percussion/Palpation: abdomen soft; abdomen nontender, no guarding and abdomen not rigid Musculoskeletal: no cyanosis or clubbing, extremities motor strength 5/5 Skin: no rashes, warm and dry Neurologic: moves all extremities and awake Psychiatric: Orientation: alert, oriented to person and cooperative Results & Data Results & Data ([facility]) Vital Signs (Past 12 Hours) Vital Signs Temp Pulse Pulse Resp BP BP Pulse Ox 03/14/22 13:04 106 H 16 135/70 99 03/14/22 11:35 100 H 100 H 16 122/79 100 03/14/22 11:07 36.2 C L 112 H 20 114/74 97 Code Status & VTE Plan VTE Prophylaxis Plan VTE Prophylaxis will be ordered: Yes PG Care Time/CCT Total # of Minutes Spent Total Time Spent with Patient: Total time spent is greater than 50% in coordination of care (as documented) at patient's floor/unit and/or counseling patient: Coding Level of Care Code 90597 Initial Inpt Care Lvl 3 Diagnoses DKA (diabetic ketoacidosis) E11.10 Vitamin B12 deficiency E53.8 Depression with anxiety F41.8 Hypertension I10 DVT prophylaxis Z29.9 Macrocytosis D75.89 Elevated troponin R77.8
[2022-03-14] MEDS ORDERED: LACTATED RINGER'S 1,000 ML IV SCH (15:15)
[2022-03-14] MEDS: D5W AND LACTATED RINGERS 1,000 ML IV SCH (15:49)
[2022-03-14] MEDS ORDERED: INSULIN ASPART PER UNIT SC SCH (16:30)
[2022-03-14] MEDS ORDERED: PHARMACY GLYCEMIC MGMT CONSULT PRN (18:06)
[2022-03-14] MEDS ORDERED: ONDANSETRON INJ 2 MG/ML 2 ML VIAL IV PRN (18:06)
[2022-03-14 18:29] LABS: Folate (Folic Acid) 17.86 ng/ml (>5.38)
[2022-03-14] MEDS: traMADol HCL 50 MG TABLET PO PRN (19:43)
[2022-03-14 19:55] LABS: BUN Creatinine Ratio 15.7 (10-20); Calcium 7.6 mg/dl (8.5-10.1); Creatinine Clr Calc Pharmacy 85.3 ml/min; Est GFR (African American) 120.4 ml/min; Est GFR (Non-African American) 103.9 ml/min; Potassium 4.5 mmol/L (3.5-5.1)
[2022-03-14] MEDS: busPIRone 5 MG TAB PO SCH (21:43)
[2022-03-14] MEDS: carBAMazepine 200 MG TABLET PO SCH (21:44)
[2022-03-14] MEDS: CHOLECALCIFEROL 1,000 UNITS 25 MCG TAB PO SCH (21:44)
--- NOTE | 2022-03-14 21:44 | Pharmacy Report ---
Pharmacy Glycemic Short Note 2 - Date of Service March 14, 2022 - Glycemic Short BSG Results (Last 24 hours): 03/14/22 03/14/22 03/14/22 11:31 13:11 14:17 Glucose 395 H* POC Glucose 427 H* 358 H* 03/14/22 03/14/22 03/14/22 15:14 15:52 16:23 Glucose POC Glucose 192 H 166 H 153 H 03/14/22 03/14/22 03/14/22 17:25 18:03 18:49 Glucose POC Glucose 113 H 91 110 H 03/14/22 03/14/22 03/14/22 18:59 20:02 20:03 Glucose 133 H POC Glucose 309 H* 293 H 03/14/22 03/14/22 20:04 21:15 Glucose POC Glucose 301 H* 275 H OUTPATIENT ANTIDIABETIC REGIMEN: * Novolog CR 1:10, self adjusts insulin ASSESSMENT: * 46 year old admitted with DKA, started on insulin infusion. Discussed home dosing of insulin with RN. Patient not able to state a set dose of insulin, appears she self adjusts dosing. Patient known to glycemic service from November 2020 admission * BSGs still in the 200s, plan to continue insulin drip until we have a better idea of insulin needs PLAN FOR INPATIENT GLYCEMIC CONTROL: * Hold outpatient oral diabetes medications * Insulin drip - per protocol
[2022-03-14] MEDS: QUEtiapine FUMARATE 100 MG TABLET PO SCH (21:45)
[2022-03-14] MEDS: GABAPENTIN 800 MG TAB PO SCH (21:45)
[2022-03-14] MEDS: NORTRIPTYLINE HCL 25 MG CAP PO SCH (21:45)
[2022-03-14] MEDS: tiZANidine HCL 4 MG TABLET PO PRN (21:51)
[2022-03-14] MEDS: INSULIN ASPART PER UNIT SC SCH (22:34)
[2022-03-15 00:34] LABS: BUN Creatinine Ratio 11.8 (10-20); Calcium 7.6 mg/dl (8.5-10.1); Creatinine Clr Calc Pharmacy 64.2 ml/min; Est GFR (African American) 85.4 ml/min; Est GFR (Non-African American) 73.7 ml/min
[2022-03-15] MEDS: D5W AND LACTATED RINGERS 1,000 ML IV SCH (00:47)
[2022-03-15] MEDS: POTASSIUM CHLORIDE 20 MEQ in D5W AND LACTATED RINGERS 1,000 ML IV SCH ×2 (01:30→09:19)
[2022-03-15 06:33] LABS: Hematocrit (blood only) 37.6 % (37-47); Hemoglobin 12.6 g/dL (12.0-16.0); Mean Corpuscular Hemoglobin 34.5 pg (25-34); Mean Corpuscular Hgb Conc 33.5 g/dL (32-36); Mean Platelet Volume 10.8 fL (7.4-10.4); Platelet Count 376 K/uL (130-400); RDW Coefficient of Variation 12.8 % (11.5-14.5); RDW Standard Deviation 48.8 fL (36.4-46.3); Red Blood Count 3.65 M/uL (4.2-5.4); White Blood Count 10.03 K/uL (4.8-10.8)
[2022-03-15 07:01] LABS: BUN Creatinine Ratio 12.3 (10-20); Calcium 8.5 mg/dl (8.5-10.1); Creatinine Clr Calc Pharmacy 93.4 ml/min; Est GFR (African American) 123.4 ml/min; Est GFR (Non-African American) 106.5 ml/min; Potassium 3.8 mmol/L (3.5-5.1)
[2022-03-15 07:05] LABS: Magnesium 1.5 mg/dl (1.7-2.4)
[2022-03-15 07:12] LABS: Troponin I High Sensitivity 231.7 pg/ml (0-14)
[2022-03-15] MEDS: traMADol HCL 50 MG TABLET PO PRN ×3 (07:40→20:44)
[2022-03-15] MEDS: INSULIN REGULAR 250 UNITS in SODIUM CHLORIDE 0.9% 247.5 ML IV SCH (08:14)
[2022-03-15] MEDS: INSULIN ASPART PER UNIT SC SCH ×5 (08:19→20:58)
[2022-03-15 08:26] LABS: Estimated Average Glucose 252 mg/dl; Hemoglobin A1C 10.4 % (4.5-5.6)
[2022-03-15] MEDS: buPROPion SR 100 MG TABCR PO SCH (08:31)
[2022-03-15] MEDS: carBAMazepine 200 MG TABLET PO SCH ×2 (08:31→20:04)
[2022-03-15] MEDS: CHOLECALCIFEROL 1,000 UNITS 25 MCG TAB PO SCH ×2 (08:31→20:03)
[2022-03-15] MEDS: CYANOCOBALAMIN (B-12) 2,500 MCG TABLET SL SCH (08:31)
[2022-03-15] MEDS: busPIRone 5 MG TAB PO SCH ×2 (08:31→20:05)
[2022-03-15] MEDS: GABAPENTIN 800 MG TAB PO SCH ×3 (08:31→20:03)
[2022-03-15] MEDS: ENOXAPARIN INJ 40 MG/0.4 ML SYR SQ SCH (08:32)
[2022-03-15] MEDS: tiZANidine HCL 4 MG TABLET PO PRN ×2 (08:33→21:15)
[2022-03-15] MEDS ORDERED: INSULIN DETEMIR FLEXPEN/FLEX TOUCH 100 UNITS/ML 3ML SC ONE (09:00)
--- NOTE | 2022-03-15 10:11 | XCELERA ---
[id number]
--- NOTE | 2022-03-15 11:39 | Electrocardiogram Report ---
Test Reason : Blood Pressure : / mmHG Vent. Rate : 098 BPM Atrial Rate : 098 BPM P-R Int : 134 ms QRS Dur : 090 ms QT Int : 356 ms P-R-T Axes : 080 030 074 degrees QTc Int : 454 ms Normal sinus rhythm Normal ECG When compared with ECG of 14-MAR-2022 11:20, QRS axis Shifted right Confirmed by Ken Connelly ([id number]) on 03/15/2022 11:38:38 AM Referred By: REFERRED SELF Confirmed By:Ken Connelly
--- NOTE | 2022-03-15 11:48 | Electrocardiogram Report ---
Test Reason : Blood Pressure : / mmHG Vent. Rate : 086 BPM Atrial Rate : 086 BPM P-R Int : 144 ms QRS Dur : 086 ms QT Int : 356 ms P-R-T Axes : 076 -05 080 degrees QTc Int : 426 ms Normal sinus rhythm Normal ECG When compared with ECG of 14-MAR-2022 20:41, (unconfirmed) No significant change was found Confirmed by Ken Connelly ([id number]) on 03/15/2022 11:48:07 AM Referred By: REFERRED SELF Confirmed By:eKn Connelly
[2022-03-15] MEDS ORDERED: PERCOCET 5/325MG HOMEPACK PO ONE (12:25)
--- NOTE | 2022-03-15 13:32 | Pharmacy Report ---
Pharmacy Glycemic Short Note 2 - Date of Service March 15, 2022 - Glycemic Short BSG Results (Last 24 hours): 03/14/22 03/14/22 03/14/22 14:17 15:14 15:52 Glucose POC Glucose 358 H* 192 H 166 H 03/14/22 03/14/22 03/14/22 16:23 17:25 18:03 Glucose POC Glucose 153 H 113 H 91 03/14/22 03/14/22 03/14/22 18:49 18:59 20:02 Glucose 133 H POC Glucose 110 H 309 H* 03/14/22 03/14/22 03/14/22 20:03 20:04 21:15 Glucose POC Glucose 293 H 301 H* 275 H 03/14/22 03/14/22 03/14/22 22:15 23:08 23:14 Glucose 206 H POC Glucose 229 H 198 H 03/15/22 03/15/22 03/15/22 00:17 01:12 02:14 Glucose POC Glucose 182 H 157 H 116 H 03/15/22 03/15/22 03/15/22 03:23 04:14 04:55 Glucose POC Glucose 172 H 218 H 218 H 03/15/22 03/15/22 03/15/22 05:53 05:53 06:50 Glucose 176 H POC Glucose 172 H 167 H 03/15/22 03/15/22 03/15/22 08:09 09:02 10:20 Glucose POC Glucose 185 H 214 H 164 H 03/15/22 03/15/22 11:19 12:08 Glucose POC Glucose 149 H 128 H OUTPATIENT ANTIDIABETIC REGIMEN: * Novolog CR 1:10, self adjusts insulin ASSESSMENT: * Patient's insulin infusion started at 5.4 units/hr and has decreased to 1.1 units/hr this morning. Patient's metabolic abnormalities have ceased. * Will start with Levemir 20 units daily (due to Lantus allergy) that patient has tolerated previously. This correlates to about a 1 unit/hr insulin infusion which patient has ended up on. * Novolog CF 30 CR 10 which has been successful previously. Overnight checks to ensure coverage. BACKGROUND * 46 year old admitted with DKA, started on insulin infusion. Discussed home dosing of insulin with RN. Patient not able to state a set dose of insulin, appears she self adjusts dosing. Patient known to glycemic service from November 2020 admission * BSGs still in the 200s, plan to continue insulin drip until we have a better idea of insulin needs PLAN FOR INPATIENT GLYCEMIC CONTROL: * Starting Levemir 20 units SQ daily * Starting correction factor of 30 mg/dl/unit * Starting carb ratio of 1 unit per 10 grams CHO consumed * Continuing goal range of Low 110 mg/dL - High 140 mg/dL * Please note that the plan above was derived based on current level of insulin resistance and hospital stress. These recommendations are appropriate for inpatient admission only. Plan of care upon discharge will need to be reassessed to avoid potential outpatient hypo/hyperglycemia. Thank you.
[2022-03-15] MEDS: OFLOXACIN 0.3% 75 DROPS/5 ML BTL OP SCH (13:57)
[2022-03-15] MEDS ORDERED: amLODIPine BESYLATE 5 MG TAB PO ONE (14:44)
[2022-03-15] MEDS: oxyCODONE/ACETAMINOPHEN 5mg/325mg TAB PO PRN ×2 (15:06→21:21)
[2022-03-15] MEDS: lisinopril 10 MG TAB PO SCH (15:44)
[2022-03-15] MEDS ORDERED: INSULIN ASPART PER UNIT SC SCH (16:30)
--- NOTE | 2022-03-15 18:21 | Hospitalist Progress Note ---
Date of Service March 15, 2022 Assessment & Plan (1) DKA (diabetic ketoacidosis): Plan: -Anion gap is closed, currently patient fixed dose of Lantus and sliding scale plus scheduled short - Glycemic pharmacy consulted - Continue IV fluids, monitor K+, insulin gtt -The patient is not attached to an endocrinology or PCP, noncompliant, A1c of 10.4 (2) Depression with anxiety: Plan: On extensive psychiatric medication list which was verified with patient and online with recent refills to avoid giving medications in the hospital which she does not take at home. - Continue home bupropion, buspirone, carbamazepine & gabapentin (more for diabetic neuropathy than psychiatric reasons), nortriptyline, quetiapine - Continue home tizanidine but make it PRN - Continue home tramadol PRN (3) Hypertension: Plan: Poorly controlled started on Norvasc unless noncompliant does not take any medication smoke (4) Elevated troponin: Plan: No chest pain; EKG stable. - Check one more. If stable, no needs. (5) Vitamin B12 deficiency: Plan: History of. - Continue B12 repletion (6) Macrocytosis: Plan: Noted on CBC. - Check B12/folate (7) DVT prophylaxis: Plan: Lovenox 40 mg SQ daily Admission and Anticipated Discharge Date Admission Date: March 14, 2022 Subjective Feels better, stop insulin drip, anion gap is closed, started on 20 minutes of Lantus and scheduled short acting Review of Systems Review of Systems: Insert general: No malaise no weakness Neck: No tenderness no pain HEENT: No eye discharge no ear discharge Chest: No chest pain, no palpitation GI: Not distended, no nausea no vomiting Extremities: No edema no tenderness Neurology: No headache no weakness Psychiatric: No depression no anxiety Physical Exam Constitutional: WD/WN, vitals as above Eyes: EOM intact bilaterally; no conjunctival abnormality ENMT: external ear and nose normal, oropharynx normal Neck: trachea midline, no thyromegaly normal visual inspection Respiratory: normal respiratory effort, lungs clear to auscultation no respiratory distress Cardiovascular: Rate/Rhythm: regular rhythm and + tachycardic Gastrointestinal (Abdomen): Inspection/Auscultation: abdomen normal to inspection; abdomen not distended Percussion/Palpation: abdomen soft; abdomen nontender, no guarding and abdomen not rigid Musculoskeletal: no cyanosis or clubbing, extremities motor strength 5/5 Skin: no rashes, warm and dry Neurologic: moves all extremities and awake Psychiatric: Orientation: alert, oriented to person and cooperative Results & Data Results & Data ([facility]) Vital Signs (Past 12 Hours) Vital Signs Temp Pulse Pulse Resp BP Pulse Ox 03/15/22 16:08 36.8 C 101 H 18 161/94 H 95 03/15/22 15:19 100 H 03/15/22 12:02 37.0 C 94 H 19 172/97 H 94 03/15/22 08:00 37.1 C 92 H 19 180/104 H 95 03/15/22 07:33 98 H PG Care Time/CCT Total # of Minutes Spent Total Time Spent with Patient: Total time spent is greater than 50% in coordination of care (as documented) at patient's floor/unit and/or counseling patient: Coding Level of Care Code 18298 Subseq Hosp Care Lvl 3 Diagnoses DKA (diabetic ketoacidosis) E11.10 Depression with anxiety F41.8 Hypertension I10 Elevated troponin R77.8 Vitamin B12 deficiency E53.8 Macrocytosis D75.89 DVT prophylaxis Z29.9
[2022-03-15] MEDS: NORTRIPTYLINE HCL 25 MG CAP PO SCH (20:04)
[2022-03-15] MEDS: QUEtiapine FUMARATE 100 MG TABLET PO SCH (20:05)
[2022-03-16] MEDS: OFLOXACIN 0.3% 75 DROPS/5 ML BTL OP SCH (07:35)
[2022-03-16] MEDS: lisinopril 10 MG TAB PO SCH (07:37)
[2022-03-16] MEDS: CYANOCOBALAMIN (B-12) 2,500 MCG TABLET SL SCH (07:38)
[2022-03-16] MEDS: GABAPENTIN 800 MG TAB PO SCH (07:38)
[2022-03-16] MEDS: buPROPion SR 100 MG TABCR PO SCH (07:38)
[2022-03-16] MEDS: CHOLECALCIFEROL 1,000 UNITS 25 MCG TAB PO SCH (07:38)
[2022-03-16] MEDS: busPIRone 5 MG TAB PO SCH (07:39)
[2022-03-16] MEDS: ENOXAPARIN INJ 40 MG/0.4 ML SYR SQ SCH (07:39)
[2022-03-16] MEDS: carBAMazepine 200 MG TABLET PO SCH (07:39)
[2022-03-16] MEDS: INSULIN ASPART PER UNIT SC SCH ×2 (07:48→11:38)
[2022-03-16] MEDS ORDERED: INSULIN DETEMIR FLEXPEN/FLEX TOUCH 100 UNITS/ML 3ML SC ONE (08:00)
[2022-03-16] MEDS: oxyCODONE/ACETAMINOPHEN 5mg/325mg TAB PO PRN (09:42)
--- NOTE | 2022-03-16 10:38 | Pharmacy Report ---
Pharmacy Glycemic Short Note 2 - Date of Service March 16, 2022 - Glycemic Short BSG Results (Last 24 hours): 03/15/22 03/15/22 03/15/22 11:19 12:08 16:13 POC Glucose 149 H 128 H 96 03/15/22 03/15/22 03/15/22 20:11 20:16 20:17 POC Glucose 331 H* 271 H 302 H* 03/15/22 03/15/22 03/16/22 20:18 23:13 03:17 POC Glucose 305 H* 158 H 182 H 03/16/22 07:17 POC Glucose 355 H* OUTPATIENT ANTIDIABETIC REGIMEN: * Novolog CR 1:10, self adjusts insulin ASSESSMENT: 03/16/22 * Patient's BSGs yesterday after insulin infusion d/c'ed were 128-96-271 and o vernight were 158-182 mg/dL. Fasting this morning was 355 mg/dL. * Patient received 20 units of Levemir and 14 units of bolus. Total of 34 units. * Unclear reason for such elevation in BSG with AM fasting as four hours previously BSG was 182 mg/dL. Will increase Levemir to 25 units (20% increase). Patient cannot tolerate Lantus due to allergy. Potentially Levemir does not last 24 hours for her? * Tighten Novolog for now. 03/15/22 * Patient's insulin infusion started at 5.4 units/hr and has decreased to 1.1 units/hr this morning. Patient's metabolic abnormalities have ceased. * Will start with Levemir 20 units daily (due to Lantus allergy) that patient has tolerated previously. This correlates to about a 1 unit/hr insulin infusion which patient has ended up on. * Novolog CF 30 CR 10 which has been successful previously. Overnight checks to ensure coverage. BACKGROUND * 46 year old admitted with DKA, started on insulin infusion. Discussed home dosing of insulin with RN. Patient not able to state a set dose of insulin, appears she self adjusts dosing. Patient known to glycemic service from November 2020 admission * BSGs still in the 200s, plan to continue insulin drip until we have a better idea of insulin needs PLAN FOR INPATIENT GLYCEMIC CONTROL: * Starting Levemir 25 units SQ daily * Starting correction factor of 25 mg/dl/unit * Starting carb ratio of 1 unit per 7 grams CHO consumed * Continuing goal range of Low 110 mg/dL - High 140 mg/dL * Please note that the plan above was derived based on current level of insulin resistance and hospital stress. These recommendations are appropriate for inpatient admission only. Plan of care upon discharge will need to be reassessed to avoid potential outpatient hypo/hyperglycemia. Thank you.
--- NOTE | 2022-03-16 18:18 | Discharge Summary ---
Date of Service March 16, 2022 Admission HPI Per Admitting Provider 46yo F w/ hx of DM1 diagnosed in 2010 who presents with DKA. The patient was in her normal state of health over , even hosting dinner. She reports normal sugars then. On Thursday, she reports she ate lot of pickled beets, and her sugars went up as high as 400 that day. She was somewhat nauseated, but did not throw up. On Thursday and , she reports increased lethargy, overall body weaknes s, increased thirst, and increased urination. She also had increased amount of nausea and increased numbers of emesis which she reports was non-bloody and non- bilious, and was just the food and drink she'd been consuming. She was in bed most of the day. She reports that she was still giving herself insulin, but her regimen is quite odd where she only uses Novolog every 4 hours. She reports over the last few days, she was giving herself 6 - 8 units every 4 hours. She reports that she follows with Christian Shankar for her diabetes, but hasn't seen him in "a while." The last visit I see was in 07/2020. At that time, she was on a long-acting agent, and she denies being on one now and cannot give an exact time frame for when she was last on one. Otherwise, she reports abdominal pain from the episodes of vomiting and generally "pain all over." She denies any infectious complaints such as shortness of breath, cough, fevers/chills, dysuria, incomplete voiding sensation, or other concerns. Principal Diagnosis Mild DKA Tobacco abuse Poorly controlled diabetes Poorly controlled hypertension Noncompliance Discharge Exam Constitutional WD/WN, vitals as above Eyes EOM intact bilaterally; no conjunctival abnormality ENMT external ear and nose normal, oropharynx normal Neck trachea midline, no thyromegaly normal visual inspection Respiratory normal respiratory effort, lungs clear to auscultation no respiratory distress Cardiovascular Rate/Rhythm: regular rhythm and + tachycardic Gastrointestinal (Abdomen) Inspection/Auscultation: abdomen normal to inspection; abdomen not distended Percussion/Palpation: abdomen soft; abdomen nontender, no guarding and abdomen not rigid Musculoskeletal no cyanosis or clubbing, extremities motor strength 5/5 Skin no rashes, warm and dry Neurologic moves all extremities and awake Psychiatric Orientation: alert, oriented to person and cooperative Discharge Data Allergies Allergy/AdvReac Type Severity Reaction Status Date / Time AZO Standard Allergy Intermediate HIVES Verified 11/11/17 13:40 insulin glargine Allergy Intermediate Rash Verified 03/14/22 14:24 [From Lantus U-100 Insulin] naproxen Allergy Intermediate HIVES & SOB Verified 03/14/22 14:24 phenazopyridine Allergy Intermediate HIVES Verified 03/14/22 14:24 sumatriptan Allergy Intermediate Nausea, Verified 03/14/22 14:24 vomitting, jaw pain, worsening BARNARD insulin degludec Allergy Mild Rash Verified 03/14/22 14:24 [From Tresiba FlexTouch U-100] Opioids - Morphine Analogues AdvReac Severe Nausea Verified 03/14/22 14:24 nicotine AdvReac Intermediate PATCH = Verified 03/14/22 14:24 SKIN IRRIATION/ITCHINESS-LOCALIZED DERMATITIS varenicline AdvReac Intermediate SEVERE Verified 03/14/22 14:24 DEPRESSION escitalopram [From Lexapro] AdvReac Mild depression Verified 03/14/22 14:24 bupropion [From Wellbutrin] AdvReac Unknown decreased Verified 03/14/22 14:24 libido doxepin AdvReac Unknown Unknown Verified 03/14/22 14:24 paroxetine [From Paxil] AdvReac Unknown decreased Verified 03/14/22 14:24 libido sulfamethoxazole AdvReac Unknown Unknown Verified 03/14/22 14:24 [From Bactrim] trimethoprim [From Bactrim] AdvReac Unknown Unknown Verified 03/14/22 14:24 Consultations 03/14/22 14:17 ED Decision to Admit Stat Ordered Studies 03/14/22 11:14 CT abd pelvis IV con only Stat Diabetes Follow up Diabetes Follow-up Needed for HgbA1c >9% Hospital Course (1) DKA (diabetic ketoacidosis): - Glycemic pharmacy consulted - Continue IV fluids, monitor K+, insulin gtt -Anion gap is closed, -Noncompliant with treatment patient only uses sliding scale at home -The patient is not attached to an endocrinology or PCP, noncompliant, A1c of 10.4 Patient was discharged on 25 units of Levemir as per pharmacy recommendation as well as 5 units of NovoLog before meal +1 unit of extra NovoLog for every 30 units of serum glucose over 150 patient was educated about this Patient has a visit appointed with a full stack engineer (2) Depression with anxiety: On extensive psychiatric medication list which was verified with patient and online with recent refills to avoid giving medications in the hospital which she does not take at home. - Continue home bupropion, buspirone, carbamazepine & gabapentin (more for diabetic neuropathy than psychiatric reasons), nortriptyline, quetiapine - Continue home tizanidine but make it PRN - Continue home tramadol PRN (3) Hypertension: Poorly controlled She is not taking any medication at home She was a started on Norvasc and lisinopril and baby aspirin (4) Elevated troponin: No chest pain; EKG stable. - Check one more. If stable, no needs. (5) Vitamin B12 deficiency: History of. - Continue B12 repletion (6) Macrocytosis: Noted on CBC. - Check B12/folate (7) DVT prophylaxis: Lovenox 40 mg SQ daily (8) Tobacco abuse: Patient was offered nicotine patch however she stated that she has already nicotine patch at home and if she decides to stop smoking she will use (9) Conjunctivitis: Possibly bacterial started on ofloxacin eyedrops fluids better (10) Gardnerella infection: Urine grew Gardnerella and yeast Patient discharged on Diflucan and Flagyl Total Time Total Time Spent Total Time Spent (In Minutes): 45 MINS Discharge Plan Discharge Items Patient Disposition: Home - Home Health Services Reason For Visit: DKA Discharge Diagnosis: dka Activity: Resume your previous activity Bathing: No limitations Sexual Activity: When tolerated Driving/Machine Use: No limitations Weightbearing: Full weightbearing Non-emergency contact: Primary Care Provider Call non-emergency contact if: you have any medication questions Follow-up/Referrals: Kai Amador MD [Primary Care Provider] - Diet: Carb Consistent or DM2 Addtl Attending Provider Instructions: Please administer 5 units of NovoLog before meals and 25 units of Levemir at bedtime If your serum glucose is less than 100 please stop taking NovoLog, if your serum glucose is more than 150 for every 30 units above 150 give yourself 1 unit extra dose of NovoLog This follow-up with full stack engineer that you have already scheduled, the best option for you your case given you suffers from brittle diabetes type 1 his insulin pump Please stop smoking, smoking has synergistic effect On complication of Diabetes Please check your blood sugar before meals and at the bedtime collect information a logbook and follow-up with your primary care doctor in 2 weeks If your serum glucose is less than 50 please drink to full cup of orange juice and call your doctor or 911 immediately Please check your blood pressure at morning and afternoon collect information in alog book and provided to your primary care doctor in 1 to 2-week Pending Studies at Discharge: No Stand-Alone Forms: My [facility] [employer], Smoking Cessation Medications and DC Order Prescriptions: New ofloxacin 0.3 % Drops 1 drp ophthalmic (eye) DAILY Qty: 5 RF: 0 lisinopril 10 mg Tablet 20 mg PO QAM 90 Days Qty: 180 RF: 0 Levemir FlexTouch U-100 Insuln 100 unit/mL (3 mL) insulin pen 25 unit subcut PM Qty: 15 RF: 0 Fiasp FlexTouch U-100 Insulin 100 unit/mL (3 mL) insulin pen 5 unit subcut TID Qty: 15 RF: 0 metronidazole 500 mg tablet 500 mg PO Q12H 10 Days Qty: 20 RF: 0 Continued insulin aspart U-100 [Novolog U-100 Insulin aspart] 100 unit/mL solution 1 sliding scale dose subcut USEASDIRECTD Qty: 20 RF: 3 tizanidine [Zanaflex] 4 mg tablet 8 mg PO TID Qty: 180 RF: 1 cholecalciferol (vitamin D3) 50 mcg (2,000 unit) capsule 50 mcg PO BID Qty: 60 RF: 8 gabapentin 800 mg tablet 800 mg PO TID Qty: 90 RF: 8 ondansetron HCl 8 mg tablet 8 mg PO UD Qty: 90 RF: 3 tramadol [Ultram] 50 mg tablet 50 mg PO BID PRN (Reason: pain) Qty: 60 RF: 0 carbamazepine [Tegretol] 200 mg tablet 200 mg PO BID Qty: 60 RF: 5 buspirone 10 mg tablet 10 mg PO BID RF: 0 nortriptyline 75 mg Capsule 75 mg PO HS RF: 0 quetiapine [Seroquel] 50 mg Tablet 100 mg PO HS RF: 0 bupropion HCl [Wellbutrin SR] 200 mg tablet sustained-release 12 hr 200 mg PO QAM RF: 0 cyanocobalamin (vitamin B-12) 2,500 mcg tablet 2,500 mcg PO QAM RF: 0 Discharge Orders: Discharge Order (Routine); Ordered 03/16/22 Ordered By: Jeremiah Packer/Other Patient Handouts: Diabetes Fitness Progress, Diabetes Bladder Control Admission Data Admit Date/Time: 03/14/22 14:43 Attending Provider: Jeremiah Harrell Admit Provider: Geoffrey Hidalgo Primary Care Provider: Kai Amador V. Other Providers: Geoffrey Hidalgo Other Interventions: Discharge Summary Assessment (RN) Last Done: 03/16/22 13:48 Coding Level of Care Code D/C DAY MANAGEMENT >30 MINS Diagnoses DKA (diabetic ketoacidosis) E11.10 Depression with anxiety F41.8 Hypertension I10 Elevated troponin R77.8 Vitamin B12 deficiency E53.8 Macrocytosis D75.89 DVT prophylaxis Z29.9 Tobacco abuse Z72.0 Conjunctivitis H10.9 Gardnerella infection A49.8
== END 2022-03-16 14:45 | disposition home or self-care (01) | DRG 638 ==
LOC: ED 11:04 → INTOOBSV 14:43 → OBSVTOIN 14:43 → 2S 14:43 → SUATTDRO 14:43 → 2S 17:54